=== PATIENT | male | born 1950 | race Caucasian/White ===

== ENCOUNTER 2020-06-04 12:08 | Inpatient (IN) | payer MEDICARE, SELFPAY ==
[2020-06-04] VITALS (19 sets, daily range): BP systolic 111–183; BP diastolic 76–119; PULSE 65–104; RESP 11–37; TEMP 36.1–36.6; O2SAT 93–99; BMI 22.8; BMI 24.2
--- NOTE | 2020-06-04 12:35 | DI.RAD.S_ITS ---
PROCEDURE: XR CHEST 1V INDICATIONS: fall yesterday, pain Left chest w/ decreased breath sounnds. TECHNIQUE: One view of the chest was acquired. COMPARISON: None. FINDINGS: Surgical changes and devices: None. Lungs and pleura: An incomplete inspiratory result is noted, causing a crowded appearance to the lung markings. No focal infiltrates are seen. No pneumothorax or significant pleural effusions are seen. Mediastinum: The cardiac contours are within normal limits. The aorta demonstrates calcification and tortuosity. Bones and chest wall: No suspicious bony lesions. Remote left posterior rib fractures are seen. Age-appropriate bony degenerative changes are seen. Overlying soft tissues appear unremarkable. IMPRESSION: Unremarkable portable chest for age. Dictated by: Kieran Paredes M.D. on 06/04/2020 at 12:02 Approved by: Kieran Paredes M.D. on 06/04/2020 at 12:02
--- NOTE | 2020-06-04 12:42 | DI.CT.S_ITS ---
PROCEDURE: CT CERVICAL SPINE WO CON INDICATIONS: fall, cervical pain TECHNIQUE: Noncontrast 3 mm thick sections acquired from the skull base to the T4 level. Sagittal and coronal reformats were then constructed. For radiation dose reduction, the following was used: automated exposure control, adjustment of mA and/or kV according to patient size. COMPARISON: [facility], CT, CT HEAD/BRAIN WO CON, 06/04/2020, 12:47. [facility], CT, CT CHEST ABD PEL W CON, 06/04/2020, 12:47. FINDINGS: Image quality: Excellent. Bones: No fractures or dislocations. Visualized superior ribs are intact. Levoconvex cervical thoracic scoliotic curvature is seen. Degenerative changes are seen, with moderate to severe disc space narrowing at C5-C6 and C6-C7. At least partially bridging anterior osteophytes are seen C4 through C7. Soft tissues: Prevertebral soft tissues are normal in thickness. No paravertebral hematomas. No apical pneumothoraces. IMPRESSION: No displaced fractures are seen. Prominent lower cervical spine degenerative changes are seen. Dictated by: Kieran Pardees M.D. on 06/04/2020 at 12:19 Approved by: Kieran Paredes M.D. on 06/04/2020 at 12:20
--- NOTE | 2020-06-04 12:42 | DI.CT.S_ITS ---
PROCEDURE: CT HEAD/BRAIN WO CON INDICATIONS: fall, cervical pain TECHNIQUE: Noncontrast 4.5 mm thick angled axial sections acquired from the foramen magnum to the vertex, with coronal and sagittal reformats. For radiation dose reduction, the following was used: automated exposure control, adjustment of mA and/or kV according to patient size. COMPARISON: [facility], CT, CT CERVICAL SPINE WO CON, 06/04/2020, 12:47. FINDINGS: Image quality: Excellent. CSF spaces: Basal cisterns are patent. No extra-axial fluid collections. The ventricles are symmetric in size and shape. Brain: No intracranial bleeds or masses. There is cerebral volume loss for age, with resultant ventricular and sulcal prominence. There are periventricular and deep white matter chronic small vessel ischemic changes. There is intracranial internal carotid artery atherosclerosis. Skull and face: Calvarium and visualized facial bones appear intact, without suspicious lesions. Sinuses: Visualized sinuses and mastoids are clear. IMPRESSION: Unremarkable intracranial study for age, without acute intracranial hemorrhage. Dictated by: Kieran Paredes M.D. on 06/04/2020 at 12:17 Approved by: Kieran Paredes M.D. on 06/04/2020 at 12:19
--- NOTE | 2020-06-04 12:45 | DI.CT.S_ITS ---
PROCEDURE: CT CHEST ABD PEL W CON INDICATIONS: trauma TECHNIQUE: After the administration of intravenous contrast, 5 mm thick sections acquired from the lung apices to the symphysis. 2.5 mm thick coronal and sagittal reformats were acquired. Additional 7 mm thick coronal maximum intensity projection (MIP) reformats acquired through the lungs. Optional 10-minute delayed imaging may be performed from the kidneys to the bladder. For radiation dose reduction, the following was used: automated exposure control, adjustment of mA and/or kV according to patient size. COMPARISON: [facility], CT, CT HEAD/BRAIN WO CON, 06/04/2020, 12:47. [facility], CT, CT CERVICAL SPINE WO CON, 06/04/2020, 12:47. [facility], CR, XR CHEST 1V, 06/04/2020, 12:27. FINDINGS: Image quality: Excellent. CHEST: Lungs: No pulmonary contusions or lacerations. Mild dependent atelectasis is seen. Centrilobular emphysematous changes are seen. These are more prominent at the lung apices than at the lung bases. No pneumothorax or hemothorax. Central and peripheral airways appear patent and normal in caliber. Mediastinum: No mediastinal hematomas. Heart size is normal. Coronary artery calcifications are seen. No pericardial effusion. The thoracic aorta is prominent and tortuous, with the aortic arch measuring 3.3 cm in the descending thoracic aorta measuring 3.4 cm. The pulmonary arteries demonstrate normal size and enhancement. No mediastinal or hilar adenopathy. Esophagus is normal in caliber. There is a small hiatal hernia. Chest wall: Mildly displaced fractures are seen on the left involving the 4th and 5th ribs. The left 6th and 7th ribs demonstrate chronic appearing fractures. No subcutaneous emphysema. No axillary or supraclavicular adenopathy. Thyroid gland demonstrates no significant abnormality. ABDOMEN: Solid organs: Liver is normal in size and enhancement, without lacerations. A simple appearing water density cyst is seen along the posterior aspect of the right liver dome measuring 2.4 cm. Tiny subcentimeter presumed cysts are seen elsewhere within the liver. Gallbladder wall is not thickened. Biliary system is non-dilated. Pancreas enhances normally, without transection. Spleen is normal in size and enhancement, without lacerations. No adrenal hematomas. Both kidneys enhance normally, without hydronephrosis or lacerations. Simple appearing bilateral renal cysts are seen. Senescent cava living is seen surrounding both kidneys. Peritoneum and bowel: No free fluid or air. Focal wall thickening is seen involving the distal descending colon, as on series 3, image 25 and on series 2, image 108. Mild surrounding inflammatory changes are seen. Unenhanced bowel loops otherwise demonstrate normal wall thickness and caliber. A normal appendix is incidentally noted. Colonic diverticulosis is seen, without findings of active diverticulitis. Nodes and vessels: No retroperitoneal or mesenteric adenopathy. Aorta and inferior vena cava are normal in size and enhancement. Atherosclerotic calcification is noted. Miscellaneous: No ventral hernias. PELVIS: Genitourinary: Bladder wall thickness is normal. Miscellaneous: No inguinal hernias or adenopathy. Bones: Pelvic ring and hip joints appear intact. There is a remote appearing L4 anterior wedge deformity, with 30% loss of height anteriorly. No acute appearing vertebral compression fractures. [id number] levoconvex lumbar scoliosis is seen. Degenerative changes are seen throughout, which are most prominent involving the lumbar spine. IMPRESSION: Mildly displaced left 4th and 5th rib fractures. Chronic appearing left lateral 6th and 7th rib fractures are also seen. No associated pneumothorax is seen. Chronic appearing L4 anterior wedge deformity, without acute vertebral body fractures identified. Note is made of focal wall thickening involving the distal descending colon. Suspicion for neoplasm is high. When clinically appropriate, a dedicated colonoscopy is recommended for further evaluation. Incidental note is made of: Tortuous and mildly aneurysmal thoracic aorta Coronary artery calcifications Small hiatal hernia Liver and renal cysts Normal appendix Diverticulosis, without active diverticulitis Note: Findings and recommendations discussed by telephone with Dr. Rascon at 12:42 p.m. [place] time on June 04, 2020. Dictated by: Kieran Paredes M.D. on 06/04/2020 at 12:33 Approved by: Kieran Paredes M.D. on 06/04/2020 at 12:43
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
[2020-06-04 12:49] LABS: Add Manual Diff / Slide Review NO; Basophils Absolute Auto 100 /uL (0-100); Basophils Percent Auto 1.6 % (0-2); Eosinophils Absolute Auto 0 /uL (0-450); Eosinophils Percent Auto 0.9 % (2-4); Hematocrit 45.2 % (41-53); Hemoglobin 15.7 g/dL (13.5-17.5); Lymphocytes Absolute Auto 900 /uL (1100-4500); Lymphocytes Percent Auto 18.9 % (25-40); Mean Corpuscular HGB Conc 34.7 % (30-36); Mean Corpuscular Hemoglobin 33.3 PG (26-34); Mean Corpuscular Volume 95.9 fL (80-100); Monocytes Absolute Auto 400 /uL (0-900); Monocytes Percent Auto 8.1 % (3-14); Neutrophils Absolute Auto 3300 /uL (1500-7000); Neutrophils Percent Auto 70.5 % (50-75); Platelet Count 205 X10^3/uL (150-400); Red Blood Cell Count 4.71 X10^6/uL (4.5-5.9); Red Cell Distribution Width 12.7 % (11.6-14.8); White Blood Cell Count 4.7 X10^3/uL (4.5-11.0)
[2020-06-04 12:58] LABS: Prothrombin Time 11.7 SECONDS (10.1-12.7)
[2020-06-04 13:01] LABS: Acetaminophen < 10 ug/mL (10-30); Alanine Aminotransferase 30 IU/L (<50); Albumin 4.6 g/dL (3.5-5.0); Albumin Globulin Ratio 1.2 (1.0-2.8); Alkaline Phosphatase 102 U/L (38-126); Aspartate Aminotransferase 39 IU/L (17-59); BUN Creatinine Ratio 10.6 (6-22); Bilirubin Total 0.7 mg/dL (0.2-1.3); Blood Urea Nitrogen 10 mg/dL (9-20); Calcium 9.4 mg/dL (8.4-10.2); Carbon Dioxide 23 mmol/L (22-32); Chloride 94 mmol/L (98-107); Creatine Kinase 152 U/L (55-170); Estimated Glomerular Filt Rate > 60.0 mL/min (>60); Ethanol (ETOH) < 10 mg/dL; Glucose 95 mg/dL (80-110); Lipase 83 U/L (23-300); PTT Partial Thromboplastin Tim 28 SECONDS (26.4-36.2); Potassium 4.1 mmol/L (3.4-5.1); Salicylate < 1.0 mg/dL (<20); Sodium 129 mmol/L (137-145); Total Protein 8.6 g/dL (6.3-8.2)
[2020-06-04 13:03] LABS: Lactate (Lactic Acid) 1.3 mmol/L (0.7-2.1)
[2020-06-04 13:12] LABS: Troponin I < 0.012 ng/mL (0.01-0.034)
[2020-06-04 13:16] LABS: CKMB % Relative Index 1.7 % (1.5-5.0); Creatine Kinase MB 2.58 ng/mL (<2.37); HEMOLYSIS 18 (0-50)
[2020-06-04 13:42] LABS: TSH w/ Reflex to FT4 1.74 uIU/mL (0.47-4.68)
--- NOTE | 2020-06-04 14:03 | PC.NURSE ---
Patient is resting on bed with lights on, curtain and door open to hallway.
[2020-06-04] MEDS: LIDOCAINE PATCH 1 EACH ADH..PATCH TOP (14:14)
[2020-06-04] MEDS: HYDROMORPHONE 1 MG INJ IV ×2 (14:14→17:17)
[2020-06-04] MEDS: SODIUM CHLORIDE 0.9% 1,000 ML 1000 ML IV (14:18)
--- NOTE | 2020-06-04 14:19 | PC.NURSE ---
I helped patient use urinal at bedside. Door and curtain are open to hallway and lights are on in room.
[2020-06-04 14:30] LABS: UR Morphine/Opiate cutoff 300 Negative (Negative); Ur Creatinine Normal (Normal); Ur Specific Gravity Normal (Normal); Urine Amphetamines Negative (Negative); Urine Barbiturates Negative (Negative); Urine Benzodiazepines Negative (Negative); Urine Cocaine Negative (Negative); Urine MDMA Negative (Negative); Urine Methadone Negative (Negative); Urine Methamphetamines Negative (Negative); Urine Oxycodone Negative (Negative); Urine Phencyclidine Negative (Negative); Urine Tetrahydrocannabinol Negative (Negative); Urine Tricyclic Antidepressant Negative (Negative); Urine pH Normal (Normal)
--- NOTE | 2020-06-04 14:32 | PC.NURSE ---
HOME DEP[employer] REP is speaking with pt in room.
--- NOTE | 2020-06-04 14:38 | PC.NURSE ---
patient came into the ED complains of left rib pain. He said that he walked to his car and fell down. He said that his legs became weak and he fell down. During triage he stated that he he has been having thoughts about jumping off a bridge to escape his pain in his ribs. He said that he would do it if he had a ride to a bridge but he does not have a ride. Patient was put on SI watch with Q15 min checks and a call was made to social work. ANTOINETTE Gonzalez is in room consulting right now.
--- NOTE | 2020-06-04 15:01 | CM.SWNOTE ---
TABLEAU ANALYST assessment TABLEAU ANALYST - Professor Of Environmental Engineering Assessment TABLEAU ANALYST - Professor Of Environmental Engineering Assessment Start: 06/04/20 14:47 Freq: Status: Active Protocol: Document 06/04/20 14:48 CHRISTINA (Rec: 06/04/20 15:01 CHRISTINA [id number]) TABLEAU ANALYST/Professor Of Environmental Engineering Assessment Time Spent with Patient Start date 06/04/20 Visit Start Time 14:05 End date 06/04/20 Visit End Time 14:45 Total time Care Management spent on 40 patient visit-in minutes Mental Health Screening Include Onset, Duration, Intensity Presenting Problem Patient presents to ED following a fall while in the parking lot 2 days prior. Patient states he has rib pain and back pain from this fall. During triage, patient informs RN that he has thought about committing suicide by jumping off the [place] bridge, but informs RN that he does not have a vehicle, and would be unable to complete this plan. Precipitating Event(s) Patient reports his legs gave out in November of 2018 and he has had difficulty with mobility since this time. Patient reports he cannot walk , and has difficulty navigating his home. Patient comes to the ED today following an additional injury . Current Behavioral Health Provider(s) none provided Include Facility, Provider, Ph. # Psych. Hx Mental Health and Chemical Patient did not disclose any Dependency previous mental health diagnoses. Family Hx of Behavioral Abuse none reported Psychiatric Hospitalizations (date(s)/ none reported location) Support System(s) Patient lives with his girlfriend. Patient reports that his girlfriend is unable to walk, but has been supportive of patient since onset of recent physical health concerns. Patient reports that his girlfriend's son has been very helpful with transportation and cooking since the challenges with mobility began. School/Work none reported. Legal Concerns Legal Matters - Outstanding Issues none reported Mental Status Orientation (Person/Place/Time) Oriented x3 Affect Slightly flat, stable Thought Content - Specify/Describe no hallucinations, obsessions, Obsessions, Delusions, Hallucinations or delusions observed or reported during assessment. Thought Processes (Mpvgnln-Chrfehaf-Hacq Coherent Zejccxkn-Lenodxlz-Bzgzkdiwtd- Oqyianahktquec-Sangbfs-Dufbpoymfzam- Thought Blocking) Speech (Nciasw-Xucd-Whsdzgl-Rapid-Soft- Slow. Loud-Pressured) Motor (Helcgn-Jieuxhroe-Ucws-Other) Slow Insight (Present-Partially Present- Present Impaired) Judgment (Intact-Impaired) Intact Impulse Control (Adequate-Impaired) Adequate Memory (Baagpppiq-Rhfmky-Hurfxm, Intact x3 Impaired-Intact) Concentration (Intact-Impaired) Intact Attention (Intact-Impaired) Intact Behavior (Appropriate-Inappropriate) Appropriate Additional Comment Patient calm and cooperative throughout visit. Risk Assessment Suicidal Ideation (Plan) No Homicidal Ideation (Plan) No Comment Patient reports he had [place], but reports he considered this because he wanted the pain to stop. Patient explains the pain is physical pain and discusses his back and rib pain. Patient reports he is currently not considering it, would like to explore options for physical pain reduction, and states that he would be unable to get to bridge because he does not have a vehicle and that he would be unable to walk from the vehicle to the bridge. TABLEAU ANALYST revisits this multiple times throughout assessment and patient consistently denies SI /HI. Intervention Intervention TABLEAU ANALYST consult requested for evaluation of SI. Based on assessment, patient does not present as imminent risk of SI , and expresses desire to find ways to live without a high level of physical pain. TABLEAU ANALYST and patient discuss mobility in home and TABLEAU ANALYST provides patient education on HH as a potential option to help with mobility in home and regain strength. Patient explains he is not interested at this time . TABLEAU ANALYST provides update to SEVERO Ku and Dr. Rascon who will continue to manage patient's physical health concerns in the ED. Plan RA Plan Patient will work with Dr. Rascon and SEVERO Ku to continue to evaluate and address physical health concerns that resulted in today's presentation to ED. ANTOINETTE Patterson
--- NOTE | 2020-06-04 15:32 | PC.NURSE ---
Nito and I tried ambulating pt but pt refused to walk due to pain in chest. was notified. Pts door and curtain are open to hallway and lights are on in room.
--- NOTE | 2020-06-04 16:05 | PC.NURSE ---
ANTOINETTE Gonzalez stated that he evaluated the patient and deemed him to not be a risk to himself at this time. The patient will continue to be monitored closely by the staff but is no longer on suicide watch at time.
--- NOTE | 2020-06-04 17:17 | PC.NURSE ---
Pt is resting in bed.
--- NOTE | 2020-06-04 17:19 | DI.MRI.S_ITS ---
PROCEDURE: MR THORACIC SPINE WO CON INDICATIONS: weakness in legs with frequent falls TECHNIQUE: The patient terminated this examination early, before can be completed. The following imaging sequences were obtained: Sagittal T1 weighted, sagittal T2 weighted, sagittal STIR COMPARISON: [facility], CT, CT CERVICAL SPINE WO CON, 06/04/2020, 12:47. [facility], CT, CT CHEST ABD PEL W CON, 06/04/2020, 12:47. [facility], CR, XR CHEST 1V, 06/05/2020, 5:41. FINDINGS: Image quality: Excellent. Alignment and Curvature: There is hngu-ph-rsfaqvwh dextroconvex scoliosis. Accentuated thoracic kyphosis is seen. Bone Marrow: The bone marrow demonstrates diffuse heterogeneity, yet without focally suspicious lesions. Several levels of minimal anterior wedge deformity are seen, without acute features. No acute vertebral body compression fractures. Spinal Cord: Visualized spinal cord is normal in size and signal. Paraspinous Soft Tissues: No paravertebral masses. There is a trace left-sided pleural effusion, with apparent overlying atelectasis. Miscellaneous: Mild central disc bulges are seen at T9-T10, T10-T11, T11-T12, T12-L1, and L1-2. Minimal to mild central canal narrowing can be seen at these levels. At the T9-T10 level, there is moderate bilateral neural foraminal narrowing seen. Milder neural foraminal narrowing can be seen elsewhere within the mid and lower thoracic spine. IMPRESSION: No nawaf, acute bony abnormality can be seen. In this patient with a colonic mass, no nawaf findings of metastatic disease are detected. Trace left-sided pleural effusion with overlying presumed atelectasis. Lower thoracic spine degenerative changes are seen. Limited examination, which was terminated early by the patient. Dictated by: Kieran Paredes M.D. on 06/05/2020 at 9:21 Approved by: Kieran Paredes M.D. on 06/05/2020 at 9:28
--- NOTE | 2020-06-04 17:27 | P.CONS_ITS ---
History of Present Illness Consult details Date Patient Seen: 06/04/20 Time Patient Seen: 17:24 Chief complaint: fell, hurt left side ribs, and back Reason for consult: CT of the colon abnormal Requesting provider: Jad Rascon Narrative: The gentleman is a 69-year-old who apparently fell going to his car yesterday. He hit the ground and the pain brought him to the ER today. He has been having severe back pain and difficulty walking for over year. The fall has exacerbated that but also important is the fact that he now has new left-sided chest pain especially when he ties to take a deep breath or cough. This is new. 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 He is not real specific however in providing information about that. Much as he should bed is unaware of he is losing weight or not. He denies any abdominal pain the last year he did has some gastrointestinal bleeding that was evaluated he believes in [place]. I do not have those records available to me at this time. His last normal bowel movement was yesterday before his fall. Since his intestinal bleeding over a year ago he has not seen blood in his stool. He does not know exactly what tests were done in [place] he has no family history of colon cancer Meds Home Medications and Allergies Home Medications Medication Instructions Recorded Confirmed Type ibuprofen 600 mg PO PRN #0 01/27/12 History meloxicam [Mobic] 15 mg PO BIDCC #0 02/23/12 History Allergies Allergy/AdvReac Type Severity Reaction Status Date / Time acetaminophen [From Percocet] Allergy Mild MAKES ME Verified 06/04/20 14:10 FEEL UNEASY oxycodone [From Percocet] Allergy Mild MAKES ME Verified 06/04/20 14:10 FEEL UNEASY Review of Systems Review of Systems Narrative: Not the best of historians. No trouble swallowing. Is a smoker does not have a persistent cough. No breathing issues at this time except for pain in the left chest with deep breath. No prior heart attacks or blood pressure problems he is aware of. No prior abdominal operations. No abdominal pain. No black or bloody bowel movements in the last year. Exam Vital Signs (past 8 hours): - 06/04/20 12:36 06/04/20 12:56 06/04/20 13:07 Temperature 97.9 F Pulse Rate 97 H 104 H 91 H Respiratory Rate 15 18 Blood Pressure 177/119 H Pulse Oximetry 98 96 06/04/20 13:08 06/04/20 13:26 06/04/20 13:30 Temperature Pulse Rate 87 86 85 Respiratory Rate 15 22 22 Blood Pressure 150/103 H 133/94 H 165/106 H Pulse Oximetry 97 94 98 06/04/20 14:00 06/04/20 14:01 06/04/20 14:30 Temperature Pulse Rate 86 85 86 Respiratory Rate 26 H 17 37 H Blood Pressure 149/91 H 149/91 H 166/112 H Pulse Oximetry 99 97 99 06/04/20 15:00 06/04/20 15:31 06/04/20 15:37 Temperature Pulse Rate 76 88 80 Respiratory Rate 18 18 14 Blood Pressure 183/93 H 144/100 H Pulse Oximetry 97 98 98 06/04/20 16:00 06/04/20 16:30 06/04/20 17:00 Temperature Pulse Rate 68 77 78 Respiratory Rate 11 L 18 23 Blood Pressure 117/76 146/96 H 152/88 H Pulse Oximetry 98 99 95 Oxygen Delivery Method Room Air Narrative Exam Narrative: Cooperative man in no apparent distress. A little discheveled. Eyes are nonicteric. Pupils equal round reactive to light. Conjunctivae are pink. Oral mucosa is dry. No obvious open lesions seen. No splits in the lips. He has no palpable nodes in the neck or supraclavicular areas. Lungs are clear to auscultation but decreased breath sounds posteriorly. Tender in the left chest which limits his ability to take a deep breath. No ventral hernias. Abdomen is soft nontender without mass. Liver and spleen are not enlarged. Extraocular movements are intact. Tongue is midline. Face is symmetric. Normal upper body strength. Objective Imaging CT scan - abdomen: My impression: Patient had multiple CTs. CT of the head is unremarkable. CT of the C-spine shows no evidence of fracture but there is significant DJD. Patient has thickening of what appears to be the sigmoid or descending colon. There is no obstruction apparent on CT scan. There is diverticulosis of the sigmoid colon. No pleural effusions or hemothorax noted. He does have a rib fractures on the left both old and new. No evidence of any metastatic disease in the liver or lung though he does have a cyst in the liver. No evidence of a mass in the kidneys. Labs Result Diagrams: 06/04/20 12:41 06/04/20 12:41 Labs: Laboratory Results - last 24 hr 06/04/20 06/04/20 06/04/20 12:41 12:41 12:41 WBC 4.7 RBC 4.71 Hgb 15.7 Hct 45.2 MCV 95.9 MCH 33.3 MCHC 34.7 RDW 12.7 Plt Count 205 Neut % (Auto) 70.5 Lymph % (Auto) 18.9 L [place] % (Auto) 8.1 Eos % (Auto) 0.9 L Baso % (Auto) 1.6 Neut # (Auto) 3300 Lymph # (Auto) 900 L [place] # (Auto) 400 Eos # (Auto) 0 Baso # (Auto) 100 PT 11.7 INR 1.0 APTT 28 Sodium 129 L Potassium 4.1 Chloride 94 L Carbon Dioxide 23 BUN 10 Creatinine 0.94 Estimated GFR > 60.0 BUN/Creatinine Ratio 10.6 Glucose 95 Lactate Calcium 9.4 Total Bilirubin 0.7 AST 39 ALT 30 Alkaline Phosphatase 102 Total Creatine Kinase 152 CK-MB (CK-2) 2.58 H CK-MB (CK-2) Rel Index 1.7 Troponin I < 0.012 Total Protein 8.6 H Albumin 4.6 Globulin 4.0 Albumin/Globulin Ratio 1.2 Lipase 83 TSH Salicylates U Opiates 300ng/mL cut Ur Oxycodone Screen Urine Methadone Screen Acetaminophen Ur Barbiturates Screen U Tricyclic Antidepress Ur Phencyclidine Scrn Ur Amphetamines Screen U Methamphetamines Scrn Ur MDMA Scrn (Ecstasy) U Benzodiazepines Scrn Urine Cocaine Screen U Marijuana (THC) Screen Ethyl Alcohol < 10 06/04/20 06/04/20 06/04/20 12:41 12:41 12:41 WBC RBC Hgb Hct MCV MCH MCHC RDW Plt Count Neut % (Auto) Lymph % (Auto) [place] % (Auto) Eos % (Auto) Baso % (Auto) Neut # (Auto) Lymph # (Auto) [place] # (Auto) Eos # (Auto) Baso # (Auto) PT INR APTT Sodium Potassium Chloride Carbon Dioxide BUN Creatinine Estimated GFR BUN/Creatinine Ratio Glucose Lactate 1.3 Calcium Total Bilirubin AST ALT Alkaline Phosphatase Total Creatine Kinase CK-MB (CK-2) CK-MB (CK-2) Rel Index Troponin I Total Protein Albumin Globulin Albumin/Globulin Ratio Lipase TSH 1.74 Salicylates < 1.0 U Opiates 300ng/mL cut Ur Oxycodone Screen Urine Methadone Screen Acetaminophen < 10 L Ur Barbiturates Screen U Tricyclic Antidepress Ur Phencyclidine Scrn Ur Amphetamines Screen U Methamphetamines Scrn Ur MDMA Scrn (Ecstasy) U Benzodiazepines Scrn Urine Cocaine Screen U Marijuana (THC) Screen Ethyl Alcohol 06/04/20 14:12 WBC RBC Hgb Hct MCV MCH MCHC RDW Plt Count Neut % (Auto) Lymph % (Auto) [place] % (Auto) Eos % (Auto) Baso % (Auto) Neut # (Auto) Lymph # (Auto) [place] # (Auto) Eos # (Auto) Baso # (Auto) PT INR APTT Sodium Potassium Chloride Carbon Dioxide BUN Creatinine Estimated GFR BUN/Creatinine Ratio Glucose Lactate Calcium Total Bilirubin AST ALT Alkaline Phosphatase Total Creatine Kinase CK-MB (CK-2) CK-MB (CK-2) Rel Index Troponin I Total Protein Albumin Globulin Albumin/Globulin Ratio Lipase TSH Salicylates U Opiates 300ng/mL cut Negative Ur Oxycodone Screen Negative Urine Methadone Screen Negative Acetaminophen Ur Barbiturates Screen Negative U Tricyclic Antidepress Negative Ur Phencyclidine Scrn Negative Ur Amphetamines Screen Negative U Methamphetamines Scrn Negative Ur MDMA Scrn (Ecstasy) Negative U Benzodiazepines Scrn Negative Urine Cocaine Screen Negative U Marijuana (THC) Screen Negative Ethyl Alcohol Assessment & Plan Assessment & Plan narrative: Patient with severe left chest pain secondary to rib fractures. He has a thickening of his colon on CT scan and is weak and unable to walk due to back issues. His injuries and CT findings could be dealt with as an outpatient but his inability to walk is a different matter. Because of that and his chest pain I think it is unlikely that we will be able to do a bowel prep due to those issues are do not within his pain better controlled. I think he would have great difficulty tolerating it as well as the frequent bowel movements afterward. I would like to get the records from his recent hospi talization for intestinal bleeding. If the colonoscopy was done at that time it would make a colon cancer highly unlikely. While metastatic disease to the spine is certainly described with colon cancer is not usually the 1st place that metastatic disease is found. The liver and lung would be more likely be than bone. Both those areas seem fairly clear on scanning. I have ordered a CEA which if abnormal would be helpful. If normal does not preclude a colon cancer. Most likely cause of his back pathology is degenerative disease. Also to be considered would be metastatic cancer but more likely source would be prostate then colon. PSA may be helpful. Unusual neurologic conditions like MS or Guillain-[place] seem much less likely given the chronicity and stability of his symptoms. Would recommend good pain control, incentive spirometry, lidocaine patch and supplemental oxygen as needed. Elevation of the head of the bed can be helpful if oxygenation is a problem.
[2020-06-04 18:14] LABS: Carcinoembryonic Antigen 14.9 ng/mL (0.1-3.0)
[2020-06-04 18:53] LABS: COVID19 -Nasal RAPID Negative (Negative)
[2020-06-04] MEDS: HYDROMORPHONE 2 MG INJ 1 MG IV (20:47)
[2020-06-04] MEDS: SODIUM CHLORIDE 0.9% 1,000 ML 100 ML IV (20:51)
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
--- NOTE | 2020-06-04 22:29 | PC.NURSE ---
A&OX3, poor historian, needs constant queuing. Lt. rib pain, administered dilaudid and now pt is comfortable and sleeping. cont pulse ox 94% RA. flutter valve and IS at bedside but needs frequent reminder how and when to use it. occasional cough, non-productive. pt ate some sandwich, cheese and juice for late snack. IVF. Tele. 1pa to [facility]-stand and pivot. call light in reach. bed alarm active.
[2020-06-05] VITALS (11 sets, daily range): BP systolic 103–153; BP diastolic 54–101; PULSE 74–112; RESP 14–20; TEMP 36.6–37.3; O2SAT 91–96
[2020-06-05] MEDS: HYDROMORPHONE 2 MG INJ 1 MG IV ×2 (00:48→04:35)
[2020-06-05] MEDS: SODIUM CHLORIDE 0.9% FLUSH 10 ML IV ×4 (04:35→20:42)
[2020-06-05 05:04] LABS: Add Manual Diff / Slide Review NO; Basophils Absolute Auto 0 /uL (0-100); Basophils Percent Auto 0.7 % (0-2); Eosinophils Absolute Auto 0 /uL (0-450); Eosinophils Percent Auto 0.6 % (2-4); Hematocrit 42.7 % (41-53); Hemoglobin 14.6 g/dL (13.5-17.5); Lymphocytes Absolute Auto 600 /uL (1100-4500); Lymphocytes Percent Auto 8.9 % (25-40); Mean Corpuscular HGB Conc 34.2 % (30-36); Mean Corpuscular Hemoglobin 32.8 PG (26-34); Monocytes Absolute Auto 600 /uL (0-900); Monocytes Percent Auto 9.3 % (3-14); Neutrophils Absolute Auto 5400 /uL (1500-7000); Neutrophils Percent Auto 80.5 % (50-75); Platelet Count 181 X10^3/uL (150-400); Red Blood Cell Count 4.45 X10^6/uL (4.5-5.9); Red Cell Distribution Width 13.1 % (11.6-14.8); White Blood Cell Count 6.7 X10^3/uL (4.5-11.0)
[2020-06-05 05:16] LABS: BUN Creatinine Ratio 13.9 (6-22); Blood Urea Nitrogen 14 mg/dL (9-20); Calcium 8.8 mg/dL (8.4-10.2); Carbon Dioxide 24 mmol/L (22-32); Chloride 101 mmol/L (98-107); Estimated Glomerular Filt Rate > 60.0 mL/min (>60); Glucose 119 mg/dL (80-110); HEMOLYSIS < 15 (0-50); Potassium 3.9 mmol/L (3.4-5.1); Sodium 131 mmol/L (137-145)
--- NOTE | 2020-06-05 06:00 | DI.RAD.S_ITS ---
PROCEDURE: XR CHEST 1V INDICATIONS: Rib Fractures TECHNIQUE: One view of the chest was acquired. COMPARISON: [facility], CT, CT CHEST ABD PEL W CON, 06/04/2020, 12:47. [facility], CR, XR CHEST 1V, 06/04/2020, 12:27. FINDINGS: Surgical changes and devices: None. Lungs and pleura: An incomplete inspiratory result is noted, causing a crowded appearance to the lung markings. No focal infiltrates are seen. No pneumothorax or significant pleural effusions are seen. Mediastinum: The cardiac contours are within normal limits. The aorta demonstrates calcification and tortuosity. Bones and chest wall: The patient's known left-sided rib fractures are only faintly seen on this study. Age-appropriate bony degenerative changes are seen. No suspicious bony lesions. Overlying soft tissues appear unremarkable. IMPRESSION: Faint visualization of the known left-sided rib fractures. No associated pneumothorax is seen. Dictated by: Kieran Paerdes M.D. on 06/05/2020 at 7:34 Approved by: Kieran Paredes M.D. on 06/05/2020 at 7:36
[2020-06-05] MEDS: SODIUM CHLORIDE 0.9% 1,000 ML 100 ML IV (06:50)
[2020-06-05] MEDS: HYDROMORPHONE 0.5 MG INJ IV ×2 (09:00→16:05)
[2020-06-05] MEDS: PANTOPRAZOLE 40 MG VIAL IV (09:00)
[2020-06-05] MEDS: ENOXAPARIN 40 MG/0.4 ML SYRINGE SUBCUT (09:00)
--- NOTE | 2020-06-05 09:56 | PC.NURSE ---
0930 pt went to have MRI.
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
[2020-06-05] MEDS: HYDROMORPHONE 1 MG INJ IV (13:47)
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
--- NOTE | 2020-06-05 14:49 | P.PN_ITS ---
Subjective Subjective Date Patient Seen: 06/05/20 Time Patient Seen: 14:49 Interval history: Patient is seen briefly. Is not really independently ambulatory. PT helped him and he required a great deal of assistance. Having severe chest pain from his fractures. I do not see how I can adequately bowel prep this patient right now. Perhaps in a week or 2 when his pain is better controlled and he is more ambulatory something can be done. I strongly suspect he has colon cancer based on his elevated CEA the findings on CT scan. Exam Vital Signs (past 8 hours): - 06/05/20 07:00 06/05/20 07:49 06/05/20 11:00 Temperature 98.1 F 98.6 F Pulse Rate 79 74 86 Respiratory Rate 16 14 16 Blood Pressure 115/75 137/54 L Pulse Oximetry 92 94 91 06/05/20 13:22 Temperature Pulse Rate Respiratory Rate 16 Blood Pressure Pulse Oximetry 94 Oxygen Delivery Method Nasal Cannula Oxygen Flow Rate 2 Objective Labs Result Diagrams: 06/05/20 04:50 06/05/20 04:50 Labs: Laboratory Results - last 24 hr 06/04/20 06/04/20 06/05/20 12:41 17:55 04:50 WBC 6.7 RBC 4.45 L Hgb 14.6 Hct 42.7 MCV 96.0 MCH 32.8 MCHC 34.2 RDW 13.1 Plt Count 181 Neut % (Auto) 80.5 H Lymph % (Auto) 8.9 L [place] % (Auto) 9.3 Eos % (Auto) 0.6 L Baso % (Auto) 0.7 Neut # (Auto) 5400 Lymph # (Auto) 600 L [place] # (Auto) 600 Eos # (Auto) 0 Baso # (Auto) 0 Sodium Potassium Chloride Carbon Dioxide BUN Creatinine Estimated GFR BUN/Creatinine Ratio Glucose Calcium Carcinoembryonic Ag 14.9 H COVID-19 PCR Negative 06/05/20 04:50 WBC RBC Hgb Hct MCV MCH MCHC RDW Plt Count Neut % (Auto) Lymph % (Auto) [place] % (Auto) Eos % (Auto) Baso % (Auto) Neut # (Auto) Lymph # (Auto) [place] # (Auto) Eos # (Auto) Baso # (Auto) Sodium 131 L Potassium 3.9 Chloride 101 Carbon Dioxide 24 BUN 14 Creatinine 1.01 Estimated GFR > 60.0 BUN/Creatinine Ratio 13.9 Glucose 119 H Calcium 8.8 Carcinoembryonic Ag COVID-19 PCR Quality VTE Deep Vein Thrombosis/Pulmonary Embolism Present on Admission: No
[2020-06-05] MEDS: ACETAMINOPHEN 325 MG TABLET 975 MG PO ×2 (15:11→20:40)
[2020-06-05] MEDS: OXYCODONE IR 5 MG TABLET PO ×2 (15:11→20:39)
--- NOTE | 2020-06-05 15:58 | PC.NURSE ---
Addendum entered by Analy Hyde R.N. 06/05/20 22:02: R.T. in to work with pt on breathing exercises. Medicated for pain associated with coughing, movement left chest/rib cage. Addendum entered by Analy Hyde R.N. 06/05/20 21:18: BP 120/79 with HR 101. Pt able to doze, no longer restless. Unsure of day of week, but otherwise appropriate mentation with CIWA re-assessment = 0 following ativan administration. Addendum entered by Analy Hyde R.N. 06/05/20 20:56: I.S. use with encouragement and assistance to 1000. Addendum entered by Analy Hyde R.N. 06/05/20 19:32: Pt quietly resting in bed with eyes closed. Room air 94% per continuous monitor. Seizure pads in place with wall suction set up if needed. Bed alarm on. Pt without signs of distress or discomfort. Addendum entered by Analy Hyde R.N. 06/05/20 17:23: Unable to edit 0.5 mg iv dilaudid on emar which was not given @ 1600. Dr. Steinberg was informed of pt's frequent moaning, sustained HR 124 and elevated BP. Plan per MD is to initiate CIWA protocol. Addendum entered by Analy Hyde R.N. 06/05/20 16:16: Pt confused to place and was reoriented. Continually takes off oxygen cannula. Does c/o left rib cage pain 05/13, it really hurts. Home up 0.5 mg iv dilaudid and upon further review of the emar noted pt received 1 mg dilaudid @ 1400. No med given and noted pt now resting quietly in bed with eyes closed. Original Note: Pt is restless in bed during shift report. Moves own extremities independently and sits up in bed; removes oxygen continually. Assist with urinal twice just during shift report. Urine sent to lab for UA per Dr. Steinberg. Bladder scanned post void for 19 cc's. Pt denies feeling any bladder fullness. 1:1 at this time d/t pt's restless nature and activity in bed.
[2020-06-05 16:20] LABS: Bacteria Urine None Seen; RBC Urine None Seen (0-5/HPF); WBC Urine None Seen (0-5/HPF)
[2020-06-05 16:27] LABS: Appearance Urine UA CLEAR; Bilirubin Urine UA NEGATIVE (NEGATIVE); Color Urine UA YELLOW; Glucose Urine UA TRACE g/dL (Negative); Ketones Urine UA NEGATIVE (NEGATIVE); Leukocyte Esterase Urine UA NEGATIVE (NEGATIVE); Nitrite Urine UA NEGATIVE (Negative); Occult Blood Urine UA TRACE-LYSED (Negative); Protein Urine UA NEGATIVE (Negative); Urobilinogen Urine UA 0.2 E.U./dL (0.2)
[2020-06-05 16:36] LABS: Culture Indicated Urine Cult Not Indicated; Urine Comments Microscopic Normal
[2020-06-05] MEDS: LORazepam 1 MG TABLET PO (17:44)
[2020-06-06] VITALS (13 sets, daily range): BP systolic 104–143; BP diastolic 65–84; PULSE 69–99; RESP 17–20; TEMP 36.4–36.8; O2SAT 88–99
[2020-06-06] MEDS: OXYCODONE IR 5 MG TABLET PO ×2 (02:39→08:37)
[2020-06-06 05:26] LABS: Add Manual Diff / Slide Review NO; Basophils Absolute Auto 100 /uL (0-100); Basophils Percent Auto 1.1 % (0-2); Eosinophils Absolute Auto 0 /uL (0-450); Eosinophils Percent Auto 0.5 % (2-4); Hematocrit 38.6 % (41-53); Hemoglobin 13.1 g/dL (13.5-17.5); Lymphocytes Absolute Auto 1000 /uL (1100-4500); Lymphocytes Percent Auto 17.3 % (25-40); Mean Corpuscular Hemoglobin 32.6 PG (26-34); Mean Corpuscular Volume 95.9 fL (80-100); Monocytes Absolute Auto 600 /uL (0-900); Monocytes Percent Auto 10.2 % (3-14); Neutrophils Absolute Auto 3900 /uL (1500-7000); Neutrophils Percent Auto 70.9 % (50-75); Platelet Count 140 X10^3/uL (150-400); Red Blood Cell Count 4.03 X10^6/uL (4.5-5.9); White Blood Cell Count 5.5 X10^3/uL (4.5-11.0)
[2020-06-06 05:31] LABS: Alanine Aminotransferase 16 IU/L (<50); Albumin 3.4 g/dL (3.5-5.0); Albumin Globulin Ratio 1.1 (1.0-2.8); Alkaline Phosphatase 62 U/L (38-126); Aspartate Aminotransferase 22 IU/L (17-59); BUN Creatinine Ratio 13.2 (6-22); Bilirubin Total 0.9 mg/dL (0.2-1.3); Blood Urea Nitrogen 15 mg/dL (9-20); Calcium 8.4 mg/dL (8.4-10.2); Carbon Dioxide 23 mmol/L (22-32); Chloride 101 mmol/L (98-107); Estimated Glomerular Filt Rate > 60.0 mL/min (>60); Globulin 3.2 g/dL (1.7-4.1); Glucose 98 mg/dL (80-110); HEMOLYSIS 19 (0-50); Magnesium 1.8 mg/dL (1.6-2.3); Potassium 3.9 mmol/L (3.4-5.1); Sodium 131 mmol/L (137-145); Total Protein 6.6 g/dL (6.3-8.2)
[2020-06-06] MEDS: PANTOPRAZOLE 40 MG VIAL IV (08:36)
[2020-06-06] MEDS: ENOXAPARIN 40 MG/0.4 ML SYRINGE SUBCUT (08:36)
[2020-06-06] MEDS: SODIUM CHLORIDE 0.9% FLUSH 10 ML IV ×2 (08:36→22:27)
[2020-06-06] MEDS: ACETAMINOPHEN 325 MG TABLET 975 MG PO ×3 (08:37→20:30)
[2020-06-06] MEDS: NICOTINE 21 MG PATCH TOP (08:41)
[2020-06-06] MEDS: MULTIVITAMIN 1 TABLET 1 TAB PO (08:41)
[2020-06-06] MEDS: THIAMINE 100 MG TABLET PO (08:41)
[2020-06-06] MEDS: FOLIC ACID 1 MG TABLET PO (08:41)
[2020-06-06] MEDS: LIDOCAINE PATCH 1 EACH ADH..PATCH TOP (08:48)
--- NOTE | 2020-06-06 09:36 | PC.NURSE ---
Addendum entered by Lilian Dubois R.N. 06/06/20 14:50: Pt reports pain improved since this AM, still 10/10 with coughing but less than this AM. Encouraged deep breathing and coughing exercises with Flutter valve (acapella) and incentive spirometer. Encouraged po water intake as urine output was 250mls. Original Note: Day Shift- Pt alert, oriented to his name, , [facility], .. Rates 10/10 pain to left upper outer chest with coughing. Pt has moist intermittent cough, no sputum production, Encouraged to cough secretions out. Instructed on splinting using a pillow with coughing. Encouraged HOB above 30 degrees, pt declined more than 15-20 degrees this morning during med pass. THis auto service writer reviewed pt allergies, pt does not recall having an allergy or reaction to Acetaminophen or Oxycodone as per allergy list. Pt only lists dust and environmental allergies. PRN Oxycodone and scheduled Tylenol given at 0840 for left chest pain. O2 sat 88% on RA, therefore placed pt back on 1L NC O2, O2 sats 93%. RT had pt perform incentive spirometer. Seizure pads in place, high fall risk precautions in place. Bed alarm on. Pt reoriented to call light, pt states he has a hard time seeing the lettering on the call light.
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
--- NOTE | 2020-06-06 12:17 | PT.IPTN ---
Physical Therapy Treatment Note M2 PT-IP Current Condition Start: 06/05/20 08:47 Freq: NEEDED Status: Active Protocol: Document 06/06/20 11:36 TP (Rec: 06/06/20 12:16 TP [id number]) Physical Therapy Current Condition Current Condition Evaluation Date 06/05/20 Treatment Diagnosis falls, rib fractures, ataxia, difficulty in walking Onset Date 06/04/20 M3 PT-IP Subjective Start: 06/05/20 08:47 Freq: NEEDED Status: Active Protocol: Document 06/06/20 11:36 TP (Rec: 06/06/20 12:16 TP [id number]) Subjective Physical Therapy Visit Type Type Treatment Note Visit Start Time 11:36 Visit Stop Time 11:48 Total Visit Minutes 12 Notes Student KARLOS Monroy supervised by KARLOS March. Number of SQL SERVER DBA Visits 1 Physical Therapy Visit Comments Patient Comments I can't get out of bed. I hurt. First attempt at tx was refused. Patient Goals Pt hopes to return home at discharge Therapy Pain Assessment Pain When Pain Assessed At Rest Pain Present Pain Present Pain Reported Location Left Ribs Intensity 10 Scale Used Numeric (0 - 10) Pain Behaviors Facial Grimacing,Guarding, Holding Area,Wincing Pain Management Techniques Distraction,Modification of Treatment,Re-positioning, Timing of Activity with Medications M4 PT-IP Mobility and Gait Start: 06/05/20 08:47 Freq: NEEDED Status: Active Protocol: Document 06/06/20 11:36 TP (Rec: 06/06/20 12:16 TP [id number]) PT-Transfer Assessment Comments Mobility Comments Pt reclined in bed with HOB elevated upon arrival. Pt respectfully refused to mobilize today due to pain reported at 10/10 in ribs and upper back. States he prefers to wait in bed for a week before getting up. Agreeable to ther ex for leg strengthening, with apprehension that exercising the BLE will help his condition. Pt education regarding ther ex for leg strengthening to reduce atrophy as he recovers. B ankle pumps x10, B heel slides x10, B SLR x5 with verbal cues for slow eccentric contraction. Weakness in B LE with L>R. Pt experienced SOB with exertion. Education for pursed lip breathing. Pt stated he's unable to perform because he can't breathe from his nose. SaO2 96% on 1L of oxygen. Pt positioned reclined on bed with pillow under L UE for trunk support. Call light and all other needs within reach. Gait Assessment Comments Gait Comments Not assessed. Pt respectfully refused to get out of bed due to pain. Stair Climbing Assessment Comments Stair Climbing Comments Not assessed. Pt respectfully refused to get out of bed due to pain. M5 PT-IP Objective Assessments Start: 06/05/20 08:47 Freq: NEEDED Status: Active Protocol: Document 06/05/20 11:44 AW (Rec: 06/05/20 12:32 AW [id number]) Orientation Orientation/Cognition Level of Alertness Confusional State Orientation Name,Birthday,Place,Situation Language Function Ability Word Finding Difficulties Safety Awareness Decreased Safety Awareness Memory Description Short Term Impaired,Mobile Application Tester Impaired Comments Pt unable to relate many details of his home environment or his history. He was confused during this encounter and somewhat lethargic. Gross Range of Motion Upper Extremity ROM Assessment Bilaterally Impaired Impairments impaired secondary to pain Lower Extremity ROM Assessment Within Functional Limits Strength Upper Extremity Strength Assessment Bilaterally Impaired Shoulder 4/5 Elbow 4/5 Lower Extremity Strength Assessment Bilaterally Impaired Hip 4-/5 Knee 4-/5 Ankle 3+/5 Coordination Assessment Gross Coordination Gross Coordination Impaired Assessment Finger to Nose Test Minimal Impairment Sensation Assessment Comments Sensation Comments Unable to assess due to pt's confusion Muscle Tone Muscle Tone WNL No Muscle Tone Location Bilateral Lower Extremity Severity of Tone Moderate Manifistation of Tone Ataxia Comments Muscle Tone Comments Ataxic gait. Mild incoordination B UE. M6 PT-IP Treatment Start: 06/05/20 08:47 Freq: NEEDED Status: Active Protocol: Document 06/06/20 11:36 TP (Rec: 06/06/20 12:16 TP [id number]) Physical Therapy Treatment Exercises Exercises Ankle Pumps,Heel Slides, Straight Leg Raises Education Education Provided Safety Other Treatments Other Treatment Performed Pt education on role of PT, importance of LE strengthening , pursed-lip breathing. M7 PT-IP Assessment and Plan Start: 06/05/20 08:47 Freq: NEEDED Status: Active Protocol: Document 06/06/20 11:36 TP (Rec: 06/06/20 12:16 TP [id number]) PT Summary Assessment and Plan Potential Rehabilitation Potential Fair Status of Condition at Evaluation Evolving Summary Impairments Pain,ROM,Strength,Balance, Coordination,Tone,Cognition, Bed Mobility,Transfers,Gait, Activity Tolerance Assessment Summary Pt experiencing significant pain in ribs and upper back and wheezing and SOB upon exertion, limiting his mobility. Pain reported at 10 /10 with numbness. Pt is not oriented to time. Agreeable to performing ther ex in bed without moving trunk. Pt has weakness in BLE with L>R, lacking eccentric control of hip flexors. Continue PT to increase strength, endurance, activity tolerance to mobilize at PLOF. Goals Bed Mobility Goal Standby Assistance Transfer Goal Standby Assistance,Front Wheeled Walker Gait Goal Standby Assistance,Front Wheel Walker Gait Distance 75 Other Goals - up/down 5 steps with left rail ascending SBA Days to Meet Goals 5 Frequency of Treatment Frequency Of Treatment Once a Day Treatment Plan Physical Therapy Treatment Plan Bed Mobility Training,Transfer Training,Gait Training, Therapeutic Exercise,Balance Retraining,Discharge Planning, Hot or Cold Pack,Neuromuscular Re-ed,Coordination Retraining Other Recommendations and Next Treatment transfer training; gait Focus training with FWW; stairs if able Recommendations To Nursing Amount of Assist Needed 1 Person Assist,2 Person Assist Discharge Recommendations PT Discharge Recommendations Home with 27/05 Assist,Home Health Equipment Needed for Home Before FWW Discharge Transportation Needs at Discharge Private Vehicle Note reviewed by Elizabet Toribio PTA
[2020-06-06] MEDS: OXYCODONE IR 10 MG TABLET PO ×2 (12:22→20:31)
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
--- NOTE | 2020-06-06 13:12 | DIET.PN ---
Dietary Progress Note Assessment: Steve Hunt is a 69-year-old male patient with PMHx of chronic back pain, GI bleed and previous rib fracture who presented to the ED after a ground level fall suffering left-sided rid fractures. He was started on CIWA protocol for mild alcohol withdrawal and does not appear to to have significant symptoms this morning. He has not had a bowel movement. He endorses improved appetite but states he is unable to prepare his own meals due to frequent falls. His son's girlfriend does all of the meal preparation and is the only time he eats. He reports he and his girlfriend are essentially completely dependent. General surgery was consulted for probable colon or rectal cancer but he is unable to complete a bowel prep while admitted due to his pain. HT: 175.26cm WT: 74.5kg UBW: 77kg BMI: 24.3 Labs: Na: 131 CEA: 14.9 MNA: 12 Gama: 17 Nutrition Diagnosis: Inadequate energy intake r/t decreased ability to prepare/consume sufficient energy, lack of access to food, psychological causes aeb estimated energy intake less than EER, inability to independently prepare meals, excessive consumption of alcohol. Interventions: 1. High jem, high pro nutrition therapy 2. Provided contact information for local Meals on Wheels Diet Order: HH EER: 2200 jem @ 30cal/kg (weight gain/maintenance); 100g Pro @ 1.3g/kg Monitoring/Evaluations:weight, POs, labs
[2020-06-06] MEDS: GABAPENTIN 300 MG CAPSULE PO ×2 (14:41→20:31)
[2020-06-07] VITALS (12 sets, daily range): BP systolic 102–141; BP diastolic 61–79; PULSE 65–99; RESP 14–20; TEMP 36.1–37.2; O2SAT 93–97
--- NOTE | 2020-06-07 00:06 | PC.NURSE ---
EVENING SHIFT Pt. refuses repositioning, states that he repositioning independently. OOB once with walker, 2-person assist to BSC. Pt. was somewhat erratic/unstable to BSC; education reinforced, moved back to bed much more smoothly.
[2020-06-07] MEDS: OXYCODONE IR 10 MG TABLET PO ×2 (04:33→08:34)
[2020-06-07 05:48] LABS: BUN Creatinine Ratio 14.1 (6-22); Blood Urea Nitrogen 12 mg/dL (9-20); Calcium 8.4 mg/dL (8.4-10.2); Carbon Dioxide 22 mmol/L (22-32); Chloride 100 mmol/L (98-107); Estimated Glomerular Filt Rate > 60.0 mL/min (>60); Glucose 101 mg/dL (80-110); HEMOLYSIS < 15 (0-50); Potassium 3.4 mmol/L (3.4-5.1); Sodium 127 mmol/L (137-145)
[2020-06-07] MEDS: ACETAMINOPHEN 325 MG TABLET 975 MG PO ×3 (08:33→20:36)
[2020-06-07] MEDS: MULTIVITAMIN 1 TABLET 1 TAB PO (08:34)
[2020-06-07] MEDS: PANTOPRAZOLE 40 MG TABLET PO (08:34)
[2020-06-07] MEDS: LIDOCAINE PATCH 1 EACH ADH..PATCH TOP (08:35)
[2020-06-07] MEDS: NICOTINE 21 MG PATCH TOP (08:35)
[2020-06-07] MEDS: ENOXAPARIN 40 MG/0.4 ML SYRINGE SUBCUT (08:35)
[2020-06-07] MEDS: FOLIC ACID 1 MG TABLET PO (08:35)
[2020-06-07] MEDS: GABAPENTIN 300 MG CAPSULE PO ×3 (08:35→20:36)
[2020-06-07] MEDS: SODIUM CHLORIDE 0.9% FLUSH 10 ML IV (08:35)
[2020-06-07] MEDS: THIAMINE 100 MG TABLET PO (08:39)
--- NOTE | 2020-06-07 09:43 | OT.IP.TRT ---
Current Diagnoses Multiple fractures of ribs, left side, initial encounter for closed fracture (06/06/20) Occupational Therapy Treatment Note M2 OT-IP Current Condition Start: 06/06/20 10:38 Freq: Status: Active Protocol: Document 06/06/20 10:38 CGR (Rec: 06/06/20 10:54 CGR [id number]) Occupational Therapy Current Condition Current Condition Evaluation Date 06/06/20 Treatment Diagnosis GLF with acute rib fx L side # 4-5 Diagnosis Onset Date 06/04/20 M3 OT- IP Subjective and Pain Start: 06/06/20 10:38 Freq: Status: Active Protocol: Document 06/07/20 11:24 CCC (Rec: 06/07/20 11:36 [facility] [id number]) OT- Subjective Occupational Therapy Visit Type Type Treatment Note Visit Start Time 09:43 Visit Stop Time 10:01 Total Visit Minutes 18 Occupational Therapy Visit Comments Patient Comments Pt agreeable to get up out of bed. Pt a bit confused and states was already has been out of bed earlier. OT Pain Assessment Pain When Pain Assessed At Rest Pain Present Pain Present Pain Reported M4 OT- IP ADL's Start: 06/06/20 10:38 Freq: Status: Active Protocol: Document 06/07/20 11:24 CCC (Rec: 06/07/20 11:36 [facility] [id number]) OT [id number] Comments OT Self-Feeding Comments not meal time OT ADL-Grooming General Evaluation Grooming Ability Minimal Assistance Comments OT Grooming Comments Pt able to wash his face after set-up and needing assist to brush the back of his head. OT ADL-Dressing General Eval Upper Body Dressing Ability Moderate Assistance Comments OT Dressing Comments Assist for gown orientation and assist to get on over his arms. OT ADL-Toileting Comments OT Toileting Comments pt declined OT ADL-Bathing Bathing Type Bathing Type Sponge Bath General Evaluation Bathing Ability Moderate Assistance Areas Needing Assistance Wash/Dry Back,Wash/Dry Perineal Area Comments OT Bathing Comments Pt needing assist for completeness and also assist due to pain. M6 OT- IP Functional Cognition Start: 06/06/20 10:38 Freq: Status: Active Protocol: Document 06/07/20 11:24 CCC (Rec: 06/07/20 11:36 [facility] [id number]) Cognitive Factors Limiting Selfcare Function Cognitive Ability Level of Alertness Alert,Confusional State Patient Orientation Name,Month,Place Attention Span Ability Capable of Focused Attention, Unable to Sustain Attention Ability to Follow Commands Able to Follow One Step Commands with Increased Time, Able to Follow One Step Commands with Repetition Cognitive Comments Cognitive Assessment Comments Pt not remembering that he has not been up out of bed yet as therapist and aid came in to see the pt. Pt trying to down the gown backwards. Pt has decreased safety awareness and needs concrete simple vc to follow. M7 OT- IP Mobility and Balance Start: 06/06/20 10:38 Freq: Status: Active Protocol: Document 06/07/20 11:24 [facility] (Rec: 06/07/20 11:36 [facility] [id number]) OT- Bed Mobility Assessment Supine to Sit Supine to Sit Assist Contact Guard Assistance Scooting Scooting to Edge of Bed Minimal Assistance OT-Transfer Assessment Sit to and From Stand Sit to and from Stand Moderate Assistance Transfers Transfer Ability Moderate Assistance Technique Transfer Destination Bed,Chair Devices Transfer Assistive Devices Gait Belt,Front Wheeled Walker Comments Mobility Comments VC for log rolling and Yoel to help get up from side lying. MODA to stand and another person there for safety as pt a time a bit impulsive and unsteady on his feet. Assist to guide FWW and for his balance. Spoke to nursing at this time , still safer to transfer with 2 person assist with FWW. OT- Balance Assessment Sitting Balance and Reactions Static Sitting Balance Ability Good Dynamic Sitting Balance Ability Fair Standing Balance and Reactions Static Standing Balance Ability Poor M9 OT- IP Assessment and Plan Start: 06/06/20 10:38 Freq: Status: Active Protocol: Document 06/07/20 11:24 [facility] (Rec: 06/07/20 11:36 [facility] [id number]) OT Summary Assessment and Plan Potential Rehabilitation Potential Fair Summary OT Impairments Functional Cognition,Grooming, Dressing,Toileting,Bathing, Toilet Transfers,Shower Transfers,Activity Tolerance Progress Towards Goals Slow Progress due to Pain,Slow Progress due to Activity Tolerance,Slow Progress due to Cognition Assessment Summary Pt able to participate in sponge bathing today. Pt still a bit confused but able to follow simple commands. At this time pt would benefit from skilled rehab prior to going to skilled rehab. Otherwise pt will need 27/05 assist at home. Goals Self-Feeding Goal Independent Grooming Goal Independent Dressing Goal Minimal Assistance Toileting Goal Independent Bathing Goal Minimal Assistance Toilet Transfer Goal Independent Shower Transfer Goal Independent Days to Meet Goals 9 Frequency of Treatment Frequency Of Treatment Once a Day Treatment Plan OT Treatment Plan ADL Training,Functional Cognition Training,Functional Mobility,Patient/Family Education,Discharge Planning Discharge Recommendations OT Discharge Recommendations Home with 24/ Assist,SNF Rehab Transportation Needs at Discharge Private Vehicle
--- NOTE | 2020-06-07 11:14 | CM.DPC ---
Addendum entered by ANTOINETTE Newton 06/07/20 13:41: ADD: Updated Radha at [facility] on pt status and d/c home tomorrow vs remain until for SNF. She will check in tomorrow to determine if HH needed at d/c. BF Addendum entered by ANTOINETTE Newton 06/07/20 12:24: ADD: Return call from Brittnee at number [phone] and discussed possible options of HH vs SNF and she is agreeable that SNF needed prior to return home as her son Chuck can assist but preference is for pt to make more progress so that he needs less assist when he gets back to home. [facility] provided the SNF Choice List via phone and preference is either [facility] or [facility] and Brittnee states she will leave that decision up to the pt. SW discussed Medicare coverage for SNF. SW met bedside with pt and updated on above and that Brittnee agreeable with SNF. Pt states he is leaning towards [facility] as preference but still hopeful he can d/c home. Pt going to eat his lunch and think about it some more. SW called [facility] and [facility] admissions and updated on pt status and recommendation of SNF but pt hopeful for HH. [facility] can likely accept and [facility] still reviewing. PASRR completed in anticipation of SNF. Pt not currently established with PCP and therefore HH would likely not be available right at d/c. Plan: SW to follow closely to confirm SNF vs HH at d/c (although currently no PCP) and preference of [facility] or [facility]. COVID needed tomorrow if pt confirms he will go to SNF. ANTOINETTE Newton Original Note: DCP SNF vs HH Per MD, pt seems to have better pain management and has still been requiring some oxygen but weaned down to 1L oxygen today and will attempt room air trial. Per PT, pt still slow with transfers and mobilizing and will try to really get pt up today. No CG training so far, but plan to attempt setting up with pt's girlfriend's son Chuck who is pt's primary CG. Pt changed to Inpt Status as of yesterday 06/06/20 and MD aware and recommending SNF at d/c if pt will be agreeable due to pt's slow progress and ongoing need for assist. Per OT, completed SLUMS yesterday 06/06/20 and pt scored a 10/30 that shows significant memory issues and could be partially related to pain medications but pt currently having memory issues either way. SW met bedside with pt and explained role and discussed recommendation of SNF at d/c and pt states he has no hx of SNF and home would be his preference but he is aware that he is requiring a significant amount of assist and may need SNF at d/c prior to going home. Pt confirms that his intermediate designer girlfriend Brittnee cannot walk herself and therefore cannot assist at d/c but that her son Chuck has been their primary CG. Pt is agreeable with SW calling Brittnee and Chuck to further discuss d/c planning needs and potentially setting up CG training with PT to determine if Chuck can meet pt's needs at d/c. SW attempted to call listed phone number for Brittnee but not an active phone number. Pt sleeping soundly but not easily woken up, and two numbers listed on pt's white board in room and SW attempted both ([phone] and [phone]) and left general msg on both requesting call back for d/c planning discussion. CC Lucille kindly faxed new SNF referral to [facility] based on pt's willingness to consider SNF to determine if either can accept if SNF needed at d/c. Plan: SW to follow for return call from pt's girlfriend or Chuck towards further discussion regarding SNF vs HH and for [facility] and [facility] review of pt to determine if they can accept. [facility] referral previously made and able to accept pt at d/c if safe for home. ANTOINETTE Newton
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
--- NOTE | 2020-06-07 13:30 | PT.IPTN ---
Current Diagnoses Multiple fractures of ribs, left side, initial encounter for closed fracture (06/06/20) Physical Therapy Treatment Note M2 PT-IP Current Condition Start: 06/05/20 08:47 Freq: NEEDED Status: Active Protocol: Document 06/06/20 11:36 TP (Rec: 06/06/20 12:16 TP [id number]) Physical Therapy Current Condition Current Condition Evaluation Date 06/05/20 Treatment Diagnosis falls, rib fractures, ataxia, difficulty in walking Onset Date 06/04/20 M3 PT-IP Subjective Start: 06/05/20 08:47 Freq: NEEDED Status: Active Protocol: Document 06/07/20 13:30 AB (Rec: 06/07/20 15:25 AB [id number]) Subjective Physical Therapy Visit Type Type Treatment Note Visit Start Time 13:30 Visit Stop Time 13:49 Total Visit Minutes 19 Number of SHIP RIGGER APPRENTICE Visits 0 Physical Therapy Visit Comments Patient Comments pt sitting on chair. agreed to do PT Therapy Pain Assessment Pain Present Pain Present Pain Reported Location Left Ribs Scale Used when coughing M4 PT-IP Mobility and Gait Start: 06/05/20 08:47 Freq: NEEDED Status: Active Protocol: Document 06/07/20 13:30 AB (Rec: 06/07/20 15:25 AB [id number]) PT-Transfer Assessment Sit to and From Stand Sit to and from Stand Moderate Assistance,Maximum Assistance,1 Person Assistance ,Use of Upper Extremities Equipment Transfer Assistive Device Gait Belt,Front Wheeled Walker Orthotic/Prosthetic Devices or Brace: No Comments Mobility Comments pt sitting on chair. hesistant to get up and ambulate but agreed to do PT. completed sit to stand mod to max A and max cues. required mod to max A with initial standing using FWW. tends to lean LE against the chair. NAC in room to assist. pt used urinal in standing and was able to stand mod to max A for balance. pt ambulated in room using FWW mod to max A 25 ft. cued for upright posture. positioned pt back on the chair. call light and table within reach. Gait Assessment Gait Gait Assistance Required: Moderate Assistance,Maximum Assistance,1 Person Assist Distance (Feet) 25 Able to Maintain Weight Bearing Status Yes During Gait Assistive Devices Assistive Device Gait Belt,Front Wheeled Walker Orthotic/Prosthetic Devices or Brace: No Gait Deviations General Gait Pattern Antalgic,Decreased Stride Length,Decreased Feet Clearance,Flexed Trunk Factors Limiting Gait Function Factors Limiting Gait Function Decreased Activity Tolerance, Decreased Strength,Difficulty Following Directions,Limited Range of Motion,Pain,Poor Balance,Poor Safety Awareness M5 PT-IP Objective Assessments Start: 06/05/20 08:47 Freq: NEEDED Status: Active Protocol: Document 06/05/20 11:44 AW (Rec: 06/05/20 12:32 AW [id number]) Orientation Orientation/Cognition Level of Alertness Confusional State Orientation Name,Birthday,Place,Situation Language Function Ability Word Finding Difficulties Safety Awareness Decreased Safety Awareness Memory Description Short Term Impaired,Grapple Crew Leader Impaired Comments Pt unable to relate many details of his home environment or his history. He was confused during this encounter and somewhat lethargic. Gross Range of Motion Upper Extremity ROM Assessment Bilaterally Impaired Impairments impaired secondary to pain Lower Extremity ROM Assessment Within Functional Limits Strength Upper Extremity Strength Assessment Bilaterally Impaired Shoulder 4/5 Elbow 4/5 Lower Extremity Strength Assessment Bilaterally Impaired Hip 4-/5 Knee 4-/5 Ankle 3+/5 Coordination Assessment Gross Coordination Gross Coordination Impaired Assessment Finger to Nose Test Minimal Impairment Sensation Assessment Comments Sensation Comments Unable to assess due to pt's confusion Muscle Tone Muscle Tone WNL No Muscle Tone Location Bilateral Lower Extremity Severity of Tone Moderate Manifistation of Tone Ataxia Comments Muscle Tone Comments Ataxic gait. Mild incoordination B UE. M6 PT-IP Treatment Start: 06/05/20 08:47 Freq: NEEDED Status: Active Protocol: Document 06/07/20 13:30 AB (Rec: 06/07/20 15:25 AB [id number]) Physical Therapy Treatment Education Education Provided Safety M7 PT-IP Assessment and Plan Start: 06/05/20 08:47 Freq: NEEDED Status: Active Protocol: Document 06/07/20 13:30 AB (Rec: 06/07/20 15:25 AB [id number]) PT Summary Assessment and Plan Potential Rehabilitation Potential Good Summary Impairments Pain,ROM,Strength,Balance, Coordination,Sensation,Tone, Cognition,Bed Mobility, Transfers,Gait,Activity Tolerance Progress Towards Goals Slow Progress due to Pain,Slow Progress due to Activity Tolerance Assessment Summary pt requiring mod to max A with mobility using FWW and presents with decrease activity tolerance and difficulty following directions. pt will require SNF rehab to improve strength and mobility. Goals Bed Mobility Goal Standby Assistance Transfer Goal Standby Assistance,Front Wheeled Walker Gait Goal Standby Assistance,Front Wheel Walker Gait Distance 75 Other Goals - up/down 5 steps with left rail ascending SBA Days to Meet Goals 5 Frequency of Treatment Frequency Of Treatment Once a Day Treatment Plan Physical Therapy Treatment Plan Bed Mobility Training,Transfer Training,Gait Training, Therapeutic Exercise,Balance Retraining,Discharge Planning, Hot or Cold Pack,Neuromuscular Re-ed,Coordination Retraining Other Recommendations and Next Treatment transfer training; gait Focus training with FWW; stairs if able Recommendations To Nursing Amount of Assist Needed 2 Person Assist Discharge Recommendations PT Discharge Recommendations SNF Rehab Transportation Needs at Discharge Wheelchair/Cabulance
[2020-06-07] MEDS: polyethylene glycoL 3350 17 GM POWD.PACK PO (13:41)
[2020-06-07] MEDS: SODIUM CHLORIDE 0.9% 1,000 ML 100 ML IV (14:43)
[2020-06-07] MEDS: OXYCODONE IR 5 MG TABLET PO (19:00)
[2020-06-07] MEDS: SENNOSIDES 8.6 MG TABLET 17.2 MG PO (20:36)
[2020-06-07] MEDS: DOCUSATE 100 MG CAPSULE PO (20:36)
[2020-06-08] VITALS (8 sets, daily range): BP systolic 109–148; BP diastolic 70–98; PULSE 63–87; RESP 16–18; TEMP 36.4–36.9; O2SAT 92–96
[2020-06-08] MEDS: OXYCODONE IR 5 MG TABLET PO ×4 (00:18→18:13)
[2020-06-08] MEDS: SODIUM CHLORIDE 0.9% 1,000 ML 100 ML IV (00:20)
[2020-06-08 05:44] LABS: BUN Creatinine Ratio 13.5 (6-22); Blood Urea Nitrogen 12 mg/dL (9-20); Calcium 8.5 mg/dL (8.4-10.2); Carbon Dioxide 25 mmol/L (22-32); Chloride 101 mmol/L (98-107); Estimated Glomerular Filt Rate > 60.0 mL/min (>60); Glucose 98 mg/dL (80-110); HEMOLYSIS < 15 (0-50); Potassium 3.9 mmol/L (3.4-5.1); Sodium 133 mmol/L (137-145)
[2020-06-08] MEDS: ACETAMINOPHEN 325 MG TABLET 975 MG PO ×3 (08:31→20:18)
[2020-06-08] MEDS: ENOXAPARIN 40 MG/0.4 ML SYRINGE SUBCUT (08:33)
[2020-06-08] MEDS: DOCUSATE 100 MG CAPSULE PO ×2 (08:33→20:18)
[2020-06-08] MEDS: polyethylene glycoL 3350 17 GM POWD.PACK PO (08:33)
[2020-06-08] MEDS: GABAPENTIN 300 MG CAPSULE PO ×3 (08:34→20:18)
[2020-06-08] MEDS: MULTIVITAMIN 1 TABLET 1 TAB PO (08:34)
[2020-06-08] MEDS: FOLIC ACID 1 MG TABLET PO (08:34)
[2020-06-08] MEDS: THIAMINE 100 MG TABLET PO (08:34)
[2020-06-08] MEDS: PANTOPRAZOLE 40 MG TABLET PO (08:34)
[2020-06-08] MEDS: NICOTINE 21 MG PATCH TOP (08:35)
[2020-06-08] MEDS: SODIUM CHLORIDE 0.9% FLUSH 10 ML IV ×2 (08:35→20:17)
[2020-06-08] MEDS: LIDOCAINE PATCH 1 EACH ADH..PATCH TOP (08:40)
--- NOTE | 2020-06-08 09:52 | OT.IP.TRT ---
Current Diagnoses Multiple fractures of ribs, left side, initial encounter for closed fracture (06/06/20) Occupational Therapy Treatment Note M2 OT-IP Current Condition Start: 06/06/20 10:38 Freq: Status: Active Protocol: Document 06/06/20 10:38 CGR (Rec: 06/06/20 10:54 CGR [id number]) Occupational Therapy Current Condition Current Condition Evaluation Date 06/06/20 Treatment Diagnosis GLF with acute rib fx L side # 4-5 Diagnosis Onset Date 06/04/20 M3 OT- IP Subjective and Pain Start: 06/06/20 10:38 Freq: Status: Active Protocol: Document 06/08/20 11:52 CCC (Rec: 06/08/20 12:04 [facility] [id number]) OT- Subjective Occupational Therapy Visit Type Type Treatment Note Visit Start Time 09:20 Visit Stop Time 09:52 Total Visit Minutes 32 Occupational Therapy Visit Comments Patient Comments Pt agreed to get up to shower. OT Pain Assessment Pain When Pain Assessed During Mobility Pain Present Pain Present Pain Reported Location Left Ribs Pain Behaviors Facial Grimacing,Guarding, Holding Area,Moaning M4 OT- IP ADL's Start: 06/06/20 10:38 Freq: Status: Active Protocol: Document 06/08/20 11:52 CCC (Rec: 06/08/20 12:04 [facility] [id number]) OT [id number] Comments OT Self-Feeding Comments not meal time OT ADL-Dressing General Eval Lower Body Dressing Ability Maximum Assistance Comments OT Dressing Comments Pt needing assist to shana socks as having pain from bending over to do socks. OT ADL-Toileting General Evaluation Toileting Ability Standby Assistance Comments OT Toileting Comments Pt able to sit and urinate into the toilet. OT ADL-Bathing Bathing Type Bathing Type Shower General Evaluation Bathing Ability Maximal Assistance Areas Needing Assistance Wash/Dry Back,Wash/Dry Perineal Area,Wash/Dry Lower Extremities Comments OT Bathing Comments Pt needing assist for completeness of pericare , to wash his hair and assist to wash/dry his lower extremities . M6 OT- IP Functional Cognition Start: 06/06/20 10:38 Freq: Status: Active Protocol: Document 06/08/20 11:52 CCC (Rec: 06/08/20 12:04 [facility] [id number]) Cognitive Factors Limiting Selfcare Function Cognitive Ability Level of Alertness Alert,Confusional State Patient Orientation Name,Month,Place Attention Span Ability Capable of Focused Attention, Unable to Sustain Attention Ability to Follow Commands Able to Follow One Step Commands with Increased Time, Able to Follow One Step Commands with Repetition Cognitive Comments Cognitive Assessment Comments Pt needing step by step instruction especially for safety and completeness. Pt also needing vc to help sequence through task of bathing. M7 OT- IP Mobility and Balance Start: 06/06/20 10:38 Freq: Status: Active Protocol: Document 06/08/20 11:52 [facility] (Rec: 06/08/20 12:04 [facility] [id number]) OT- Bed Mobility Assessment Rolling Type of Rolling Roll to Left Level of Assistance Standby Assistance Supine to Sit Supine to Sit Assist Contact Guard Assistance OT-Transfer Assessment Sit to and From Stand Sit to and from Stand Minimal Assistance,Moderate Assistance Transfers Transfer Ability Moderate Assistance Technique Transfer Destination Bed,Shower Stall,Toilet Devices Transfer Assistive Devices Gait Belt,Front Wheeled Walker Comments Mobility Comments Pt doing better today and needing MODA x1 with FWW. however pt still unsteady of his feet and needing assist for his balance as pt tends to have the FWW too far out in front of him. In addition pt needing more assist when stepping over the threshold of the shower. OT- Balance Assessment Sitting Balance and Reactions Static Sitting Balance Ability Good Dynamic Sitting Balance Ability Fair Standing Balance and Reactions Static Standing Balance Ability Poor M9 OT- IP Assessment and Plan Start: 06/06/20 10:38 Freq: Status: Active Protocol: Document 06/08/20 11:52 [facility] (Rec: 06/08/20 12:04 [facility] [id number]) OT Summary Assessment and Plan Potential Rehabilitation Potential Fair Analytic Complexity at Evaluation Low Summary OT Impairments Functional Cognition,Grooming, Dressing,Toileting,Bathing, Toilet Transfers,Shower Transfers,Activity Tolerance Progress Towards Goals Progressing Toward Goals Assessment Summary Pt overall improvement with activity tolerance and was able to participate in a bath today. Pt still have decreased safety awareness and needing cues for sequencing through task for bathing needs . Pt will benefit from skilled rehab prior to going home. Goals Self-Feeding Goal Independent Grooming Goal Independent Dressing Goal Minimal Assistance Toileting Goal Independent Bathing Goal Minimal Assistance Toilet Transfer Goal Independent Shower Transfer Goal Independent Days to Meet Goals 8 Frequency of Treatment Frequency Of Treatment Once a Day Treatment Plan OT Treatment Plan ADL Training,Functional Cognition Training,Functional Mobility,Patient/Family Education,Discharge Planning Discharge Recommendations OT Discharge Recommendations SNF Rehab Transportation Needs at Discharge Wheelchair/Cabulance
--- NOTE | 2020-06-08 09:59 | PT.IPTN ---
Current Diagnoses Multiple fractures of ribs, left side, initial encounter for closed fracture (06/06/20) Physical Therapy Treatment Note M2 PT-IP Current Condition Start: 06/05/20 08:47 Freq: NEEDED Status: Active Protocol: Document 06/06/20 11:36 TP (Rec: 06/06/20 12:16 TP [id number]) Physical Therapy Current Condition Current Condition Evaluation Date 06/05/20 Treatment Diagnosis falls, rib fractures, ataxia, difficulty in walking Onset Date 06/04/20 M3 PT-IP Subjective Start: 06/05/20 08:47 Freq: NEEDED Status: Active Protocol: Document 06/08/20 09:39 HH (Rec: 06/08/20 09:59 HH [email or web address]) Subjective Physical Therapy Visit Type Type Treatment Note Visit Start Time 09:12 Visit Stop Time 09:30 Total Visit Minutes 18 Notes Per OT note, pt's SLUMS test 09/02 and has been confused/ lethargic during hospitalization. Number of APPLICATION SOFTWARE DEVELOPER Visits 0 Physical Therapy Visit Comments Patient Comments Pt is in bed I cant get out of bed and i always need 2 people to help me. Therapy Pain Assessment Pain When Pain Assessed During Mobility Pain Present Pain Present Pain Reported Location Left Ribs Scale Used when coughing Pain Behaviors Facial Grimacing,Guarding, Holding Area,Wincing Pain Management Techniques Distraction,Modification of Treatment,Re-positioning, Timing of Activity with Medications M4 PT-IP Mobility and Gait Start: 06/05/20 08:47 Freq: NEEDED Status: Active Protocol: Document 06/08/20 09:39 HH (Rec: 06/08/20 09:59 HH [email or web address]) PT-Bed Mobility Assessment Supine to Sit Supine to Sit Minimal Assistance PT-Transfer Assessment Sit to and From Stand Sit to and from Stand Contact Guard Assistance,Use of Upper Extremities Equipment Transfer Assistive Device Gait Belt,Front Wheeled Walker Orthotic/Prosthetic Devices or Brace: No Transfers Transfer Destination Bed,Toilet Transfer Technique Stand Step Pivot Transfer Ability Level of Assist Moderate Assistance Comments Mobility Comments Pt was in bed watching TV upon PT arrival. Introduced myself to pt and goals of therapy but pt questioned multiple times the purpose of mobilizing. Pt also repeatedly stated that he has poor balance and needed 2PA for mobility. This PT provided reassurance multiple times to encourage him for OOB activity . Assisted pt to flatten his bed first and pt was able to complete supine to long sit slowly to R EOB with CGA. He then immediately felt painful at L rib with facial grimacing . He was able to stand up after with 2UE push off from FWW slowly. Pt presented excessive swaying but did not have LOB. He then sat back down and stood up again If i am not walking then im going to sit. Pt then started ambulating impulsively towards bathroom. He demonstrated uneven step length and step width with CGA. In the mean time, OT and ASSEMBLER BILLIARD TABLE came in to prepare pt for showering. This PT recommended pt to amb more to promote mobility multiple times but pt disregard it and got into bathroom but he was very impulsive while manuevering his FWW for turns in place since there's a threshold on the floor. Pt then sat down on toilet with poor descend by using support on FWW. Pt was then handed over to OT and ASSEMBLER BILLIARD TABLE for self care and showering. Gait Assessment Gait Gait Assistance Required: Moderate Assistance,1 Person Assist Distance (Feet) 12 Able to Maintain Weight Bearing Status Yes During Gait Assistive Devices Assistive Device Gait Belt,Front Wheeled Walker Orthotic/Prosthetic Devices or Brace: No Gait Deviations General Gait Pattern Antalgic,Decreased Stride Length,Decreased Feet Clearance,Flexed Trunk Factors Limiting Gait Function Factors Limiting Gait Function Decreased Activity Tolerance, Decreased Strength,Difficulty Following Directions,Limited Range of Motion,Pain,Poor Balance,Poor Safety Awareness M5 PT-IP Objective Assessments Start: 06/05/20 08:47 Freq: NEEDED Status: Active Protocol: Document 06/05/20 11:44 AW (Rec: 06/05/20 12:32 AW [id number]) Orientation Orientation/Cognition Level of Alertness Confusional State Orientation Name,Birthday,Place,Situation Language Function Ability Word Finding Difficulties Safety Awareness Decreased Safety Awareness Memory Description Short Term Impaired,Fpc Impaired Comments Pt unable to relate many details of his home environment or his history. He was confused during this encounter and somewhat lethargic. Gross Range of Motion Upper Extremity ROM Assessment Bilaterally Impaired Impairments impaired secondary to pain Lower Extremity ROM Assessment Within Functional Limits Strength Upper Extremity Strength Assessment Bilaterally Impaired Shoulder 4/5 Elbow 4/5 Lower Extremity Strength Assessment Bilaterally Impaired Hip 4-/5 Knee 4-/5 Ankle 3+/5 Coordination Assessment Gross Coordination Gross Coordination Impaired Assessment Finger to Nose Test Minimal Impairment Sensation Assessment Comments Sensation Comments Unable to assess due to pt's confusion Muscle Tone Muscle Tone WNL No Muscle Tone Location Bilateral Lower Extremity Severity of Tone Moderate Manifistation of Tone Ataxia Comments Muscle Tone Comments Ataxic gait. Mild incoordination B UE. M6 PT-IP Treatment Start: 06/05/20 08:47 Freq: NEEDED Status: Active Protocol: Document 06/07/20 13:30 AB (Rec: 06/07/20 15:25 AB [id number]) Physical Therapy Treatment Education Education Provided Safety M7 PT-IP Assessment and Plan Start: 06/05/20 08:47 Freq: NEEDED Status: Active Protocol: Document 06/08/20 09:39 HH (Rec: 06/08/20 09:59 HH [email or web address]) PT Summary Assessment and Plan Potential Rehabilitation Potential Good Summary Impairments Pain,ROM,Strength,Balance, Coordination,Sensation,Tone, Cognition,Bed Mobility, Transfers,Gait,Activity Tolerance Progress Towards Goals Slow Progress due to Pain,Slow Progress due to Activity Tolerance Assessment Summary Pt shows improved bed mobility with CGA and mod A x 1 for ambulation with FWW but he cont to be very impulsive and poor understanding with command, along with SLUMS test 09/02 and suicidal ideation per EMR. Pt has very high fall risk and behavior issues who will be safe to d/c skilled care facility to improve his mobility and safety awareness. Recommended nursing on 1PA for transfer and 2 PA for walking Goals Bed Mobility Goal Standby Assistance Transfer Goal Standby Assistance,Front Wheeled Walker Gait Goal Standby Assistance,Front Wheel Walker Gait Distance 75 Other Goals - up/down 5 steps with left rail ascending SBA Days to Meet Goals 5 Frequency of Treatment Frequency Of Treatment Once a Day Treatment Plan Physical Therapy Treatment Plan Bed Mobility Training,Transfer Training,Gait Training, Therapeutic Exercise,Balance Retraining,Discharge Planning, Hot or Cold Pack,Neuromuscular Re-ed,Coordination Retraining Other Recommendations and Next Treatment transfer training; gait Focus training with FWW; stairs if able Recommendations To Nursing Amount of Assist Needed 2 Person Assist Discharge Recommendations PT Discharge Recommendations SNF Rehab Transportation Needs at Discharge Wheelchair/Cabulance
--- NOTE | 2020-06-08 10:11 | CM.DPNOTE ---
DCP Cont [facility] has accepted for admission tomorrow. COVID test needs to be updated, Dr Alvarenga aware P: DC expected to [facility] tomorrow, 06.09.20 via w/c ty [facility]IST[facility]
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
[2020-06-08 16:30] LABS: COVID19 -Nasal RAPID Negative (Negative)
[2020-06-08] MEDS: SENNOSIDES 8.6 MG TABLET 17.2 MG PO (20:17)
[2020-06-09] MEDS: OXYCODONE IR 5 MG TABLET PO (02:58)
[2020-06-09 03:10] VITALS: BP 135/86; PULSE 79; RESP 18; TEMP 37; O2SAT 92
[2020-06-09 05:55] LABS: BUN Creatinine Ratio 10.1 (6-22); Blood Urea Nitrogen 8 mg/dL (9-20); Calcium 8.6 mg/dL (8.4-10.2); Carbon Dioxide 24 mmol/L (22-32); Chloride 102 mmol/L (98-107); Estimated Glomerular Filt Rate > 60.0 mL/min (>60); Glucose 101 mg/dL (80-110); HEMOLYSIS < 15 (0-50); Potassium 3.6 mmol/L (3.4-5.1); Sodium 132 mmol/L (137-145)
[2020-06-09] MEDS: OXYCODONE IR 10 MG TABLET PO (06:23)
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
[2020-06-09 08:10] VITALS: BP 138/71; PULSE 67; RESP 15; TEMP 36.7; O2SAT 92
[2020-06-09] MEDS: ACETAMINOPHEN 325 MG TABLET 975 MG PO (08:32)
[2020-06-09] MEDS: PANTOPRAZOLE 40 MG TABLET PO (08:33)
[2020-06-09] MEDS: FOLIC ACID 1 MG TABLET PO (08:33)
[2020-06-09] MEDS: DOCUSATE 100 MG CAPSULE PO (08:33)
[2020-06-09] MEDS: MULTIVITAMIN 1 TABLET 1 TAB PO (08:33)
[2020-06-09] MEDS: GABAPENTIN 300 MG CAPSULE PO (08:33)
[2020-06-09] MEDS: NICOTINE 21 MG PATCH TOP (08:33)
[2020-06-09] MEDS: ENOXAPARIN 40 MG/0.4 ML SYRINGE SUBCUT (08:33)
[2020-06-09] MEDS: LIDOCAINE PATCH 1 EACH ADH..PATCH TOP (08:34)
[2020-06-09] MEDS: polyethylene glycoL 3350 17 GM POWD.PACK PO (08:34)
[2020-06-09] MEDS: THIAMINE 100 MG TABLET PO (10:17)
--- NOTE | 2020-06-09 10:58 | PT.IPTN ---
Current Diagnoses Multiple fractures of ribs, left side, initial encounter for closed fracture (06/06/20) Physical Therapy Treatment Note M2 PT-IP Current Condition Start: 06/05/20 08:47 Freq: NEEDED Status: Active Protocol: Document 06/06/20 11:36 TP (Rec: 06/06/20 12:16 TP [id number]) Physical Therapy Current Condition Current Condition Evaluation Date 06/05/20 Treatment Diagnosis falls, rib fractures, ataxia, difficulty in walking Onset Date 06/04/20 M3 PT-IP Subjective Start: 06/05/20 08:47 Freq: NEEDED Status: Active Protocol: Document 06/08/20 09:39 HH (Rec: 06/08/20 09:59 HH [email or web address]) Subjective Physical Therapy Visit Type Type Treatment Note Visit Start Time 09:12 Visit Stop Time 09:30 Total Visit Minutes 18 Notes Per OT note, pt's SLUMS test 09/02 and has been confused/ lethargic during hospitalization. Number of GLASS HANDLER Visits 0 Physical Therapy Visit Comments Patient Comments Pt is in bed I cant get out of bed and i always need 2 people to help me. Therapy Pain Assessment Pain When Pain Assessed During Mobility Pain Present Pain Present Pain Reported Location Left Ribs Scale Used when coughing Pain Behaviors Facial Grimacing,Guarding, Holding Area,Wincing Pain Management Techniques Distraction,Modification of Treatment,Re-positioning, Timing of Activity with Medications M4 PT-IP Mobility and Gait Start: 06/05/20 08:47 Freq: NEEDED Status: Active Protocol: Document 06/08/20 09:39 HH (Rec: 06/08/20 09:59 HH [email or web address]) PT-Bed Mobility Assessment Supine to Sit Supine to Sit Minimal Assistance PT-Transfer Assessment Sit to and From Stand Sit to and from Stand Contact Guard Assistance,Use of Upper Extremities Equipment Transfer Assistive Device Gait Belt,Front Wheeled Walker Orthotic/Prosthetic Devices or Brace: No Transfers Transfer Destination Bed,Toilet Transfer Technique Stand Step Pivot Transfer Ability Level of Assist Moderate Assistance Comments Mobility Comments Pt was in bed watching TV upon PT arrival. Introduced myself to pt and goals of therapy but pt questioned multiple times the purpose of mobilizing. Pt also repeatedly stated that he has poor balance and needed 2PA for mobility. This PT provided reassurance multiple times to encourage him for OOB activity . Assisted pt to flatten his bed first and pt was able to complete supine to long sit slowly to R EOB with CGA. He then immediately felt painful at L rib with facial grimacing . He was able to stand up after with 2UE push off from FWW slowly. Pt presented excessive swaying but did not have LOB. He then sat back down and stood up again If i am not walking then im going to sit. Pt then started ambulating impulsively towards bathroom. He demonstrated uneven step length and step width with CGA. In the mean time, OT and VETERINARY VIRUS SERUM INSPECTOR came in to prepare pt for showering. This PT recommended pt to amb more to promote mobility multiple times but pt disregard it and got into bathroom but he was very impulsive while manuevering his FWW for turns in place since there's a threshold on the floor. Pt then sat down on toilet with poor descend by using support on FWW. Pt was then handed over to OT and VETERINARY VIRUS SERUM INSPECTOR for self care and showering. Gait Assessment Gait Gait Assistance Required: Moderate Assistance,1 Person Assist Distance (Feet) 12 Able to Maintain Weight Bearing Status Yes During Gait Assistive Devices Assistive Device Gait Belt,Front Wheeled Walker Orthotic/Prosthetic Devices or Brace: No Gait Deviations General Gait Pattern Antalgic,Decreased Stride Length,Decreased Feet Clearance,Flexed Trunk Factors Limiting Gait Function Factors Limiting Gait Function Decreased Activity Tolerance, Decreased Strength,Difficulty Following Directions,Limited Range of Motion,Pain,Poor Balance,Poor Safety Awareness M5 PT-IP Objective Assessments Start: 06/05/20 08:47 Freq: NEEDED Status: Active Protocol: Document 06/05/20 11:44 AW (Rec: 06/05/20 12:32 AW [id number]) Orientation Orientation/Cognition Level of Alertness Confusional State Orientation Name,Birthday,Place,Situation Language Function Ability Word Finding Difficulties Safety Awareness Decreased Safety Awareness Memory Description Short Term Impaired,Assisted Impaired Comments Pt unable to relate many details of his home environment or his history. He was confused during this encounter and somewhat lethargic. Gross Range of Motion Upper Extremity ROM Assessment Bilaterally Impaired Impairments impaired secondary to pain Lower Extremity ROM Assessment Within Functional Limits Strength Upper Extremity Strength Assessment Bilaterally Impaired Shoulder 4/5 Elbow 4/5 Lower Extremity Strength Assessment Bilaterally Impaired Hip 4-/5 Knee 4-/5 Ankle 3+/5 Coordination Assessment Gross Coordination Gross Coordination Impaired Assessment Finger to Nose Test Minimal Impairment Sensation Assessment Comments Sensation Comments Unable to assess due to pt's confusion Muscle Tone Muscle Tone WNL No Muscle Tone Location Bilateral Lower Extremity Severity of Tone Moderate Manifistation of Tone Ataxia Comments Muscle Tone Comments Ataxic gait. Mild incoordination B UE. M6 PT-IP Treatment Start: 06/05/20 08:47 Freq: NEEDED Status: Active Protocol: Document 06/07/20 13:30 AB (Rec: 06/07/20 15:25 AB [id number]) Physical Therapy Treatment Education Education Provided Safety M7 PT-IP Assessment and Plan Start: 06/05/20 08:47 Freq: NEEDED Status: Active Protocol: Document 06/08/20 09:39 HH (Rec: 06/08/20 09:59 HH [email or web address]) PT Summary Assessment and Plan Potential Rehabilitation Potential Good Summary Impairments Pain,ROM,Strength,Balance, Coordination,Sensation,Tone, Cognition,Bed Mobility, Transfers,Gait,Activity Tolerance Progress Towards Goals Slow Progress due to Pain,Slow Progress due to Activity Tolerance Assessment Summary Pt shows improved bed mobility with CGA and mod A x 1 for ambulation with FWW but he cont to be very impulsive and poor understanding with command, along with SLUMS test 09/02 and suicidal ideation per EMR. Pt has very high fall risk and behavior issues who will be safe to d/c skilled care facility to improve his mobility and safety awareness. Recommended nursing on 1PA for transfer and 2 PA for walking Goals Bed Mobility Goal Standby Assistance Transfer Goal Standby Assistance,Front Wheeled Walker Gait Goal Standby Assistance,Front Wheel Walker Gait Distance 75 Other Goals - up/down 5 steps with left rail ascending SBA Days to Meet Goals 5 Frequency of Treatment Frequency Of Treatment Once a Day Treatment Plan Physical Therapy Treatment Plan Bed Mobility Training,Transfer Training,Gait Training, Therapeutic Exercise,Balance Retraining,Discharge Planning, Hot or Cold Pack,Neuromuscular Re-ed,Coordination Retraining Other Recommendations and Next Treatment transfer training; gait Focus training with FWW; stairs if able Recommendations To Nursing Amount of Assist Needed 2 Person Assist Discharge Recommendations PT Discharge Recommendations SNF Rehab Transportation Needs at Discharge Wheelchair/Cabulance
--- NOTE | 2020-06-09 11:21 | CM.DPC ---
DCP cont: Faxed signed med list, PASRR, and discharge summary to [facility] at fax # [phone]. Fax confirmation scanned in. Lucille Cordon, [facility] Cart[employer]
[2020-06-09 11:50] VITALS: BP 106/74; PULSE 90; RESP 15; TEMP 36.8; O2SAT 93
--- NOTE | 2020-06-09 12:46 | PC.NURSE ---
Pt ready for discharge to SNF. Called report to Janeth from [facility], answered all questions, pt had all belongings at transfer, IV removed, pt out via wheelchair by [facility] personnel
--- NOTE | 2020-06-09 13:50 | CM.DPNOTE ---
Addendum entered by ANTOINETTE Nielsen 06/09/20 16:28: SEVERO Mason made aware of p/u time and number for N2N report. Original Note: DC Note DC order in place, patient remains agreeable to [facility]. Requested that Lucille, Canvas Cutter, coordinate details of patient's DC to [facility]. [facility] and [facility]/u was scheduled for 1230. P: DC to [facility] today via w/c. ANTOINETTE Nielsen
== END 2020-06-09 12:50 | DRG 183 ==
LOC: ED 16:57 → AC 17:37
PROVIDERS: Internal Medicine; Nurse Practitioner Adult Health; Specialist; Admitting Provider Internal Medicine; Emergency Provider Emergency Medicine; Referring Provider Emergency Medicine; Visit Provider Internal Medicine
DX: S22.42XA Multiple fractures of ribs, left side, initial encounter for closed fracture (principal); J96.01 Acute respiratory failure with hypoxia; E87.1 Hypo-osmolality and hyponatremia; F10.230 Alcohol dependence with withdrawal, uncomplicated; J98.11 Atelectasis; Y90.0 Blood alcohol level of less than 20 mg/100 ml; R10.9 Unspecified abdominal pain; M54.5 Low back pain; G31.84 Mild cognitive impairment of uncertain or unknown etiology; F17.210 Nicotine dependence, cigarettes, uncomplicated; R53.1 Weakness; W18.30XA Fall on same level, unspecified, initial encounter; Z11.59 Encounter for screening for other viral diseases
CPT/HCPCS: 36415; 70450; 71045; 71260; 72125; 72146; 74177; 80048; 80053; 80305; 80320; 80329; 81001; 81003; 82378; 82550; 82553; 83605; 83690; 83735; 84443; 84484; 85025; 85610; 85730; 87635; 93005; 94760; 94762; 96361; 96374; 96376; 97110; 97116; 97162; 97165; 97530; 97535; 99285; 99406; G0378; C9113; G0480; J1170; J1650; Q9967

== ENCOUNTER 2020-12-26 13:01 | Emergency (ER) | payer MEDICARE, SELFPAY ==
[2020-06-04 17:43] VITALS: BMI 24.2
[2020-12-26 13:07] VITALS: BP 171/108; PULSE 104; RESP 18; TEMP 36.3; O2SAT 98
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
--- NOTE | 2020-12-26 18:20 | PC.NURSE ---
Chronic back pain that is no better or worse. States it has been there for > 2 years. States the pain makes his legs give out. Neuro intact at this time. states occurrences of legs giving out is increasing in frequency.
--- NOTE | 2020-12-26 18:22 | DI.RAD.S_ITS ---
PROCEDURE: XR LUMBAR SPINE 2-3V INDICATIONS: chronic back pain TECHNIQUE: 3 views of the lumbar spine were acquired. COMPARISON: None. FINDINGS: Bones: 5 [id number] vertebrae are present. There is normal bony alignment. No vertebral body compression fractures. No suspicious bony lesions. Degenerative disc disease is moderately severe along the lumbosacral spine, most pronounced from L2 through L5. Facet osteoarthritis becomes progressively more prominent from L3 inferiorly, and there likely is spinal and foraminal zone stenosis over the middle and lower thirds of the lumbosacral spine. A compression fracture is not seen. Prominent bridging osteophytes are seen leftward at L 1-2 and L2-3. Soft tissues: Overlying bowel gas pattern is normal. No suspicious soft tissue calcifications. IMPRESSION: Overall there is moderately severe to severe degenerative changes along the lumbosacral spine, chronic in appearance, with likelihood of significant spinal and foraminal stenosis over the middle and lower half of the LS spine, but without associated subluxation or compression fracture. Dictated by: Marcus Del Cid M.D. on 12/26/2020 at 19:14 Approved by: Marcus Del Cid M.D. on 12/26/2020 at 19:15
[2020-12-26 18:39] LABS: Add Manual Diff / Slide Review NO; Basophils Absolute Auto 100 /uL (0-100); Basophils Percent Auto 1.1 % (0-2); Eosinophils Absolute Auto 100 /uL (0-450); Eosinophils Percent Auto 1.5 % (2-4); Hematocrit 43.4 % (41-53); Hemoglobin 15.3 g/dL (13.5-17.5); Lymphocytes Absolute Auto 1400 /uL (1100-4500); Lymphocytes Percent Auto 27.7 % (25-40); Mean Corpuscular HGB Conc 35.2 % (30-36); Mean Corpuscular Volume 96.7 fL (80-100); Monocytes Absolute Auto 500 /uL (0-900); Monocytes Percent Auto 10.2 % (3-14); Neutrophils Absolute Auto 3000 /uL (1500-7000); Neutrophils Percent Auto 59.5 % (50-75); Platelet Count 158 X10^3/uL (150-400); Red Blood Cell Count 4.49 X10^6/uL (4.5-5.9); Red Cell Distribution Width 13.4 % (11.6-14.8)
[2020-12-26 18:51] LABS: BUN Creatinine Ratio 11.7 (6-22); Blood Urea Nitrogen 9 mg/dL (9-20); Carbon Dioxide 27 mmol/L (22-32); Chloride 99 mmol/L (98-107); Estimated Glomerular Filt Rate > 60.0 mL/min (>60); Glucose 98 mg/dL (80-110); HEMOLYSIS < 15 (0-50); Potassium 4.3 mmol/L (3.4-5.1); Sodium 132 mmol/L (137-145)
[2020-12-26 19:02] VITALS: BP 157/98; PULSE 82; RESP 16; O2SAT 98
[2020-12-26 20:10] VITALS: BP 159/86; PULSE 80; RESP 18; O2SAT 98
== END 2020-12-26 20:17 | disposition home or self-care (01) ==
PROVIDERS: Emergency Provider Emergency Medicine
DX: M54.9 Dorsalgia, unspecified (principal); R53.1 Weakness
CPT/HCPCS: 36415; 72100; 80048; 81003; 85025; 99283; 99284

== ENCOUNTER 2021-09-24 18:55 | Inpatient (IN) | payer MEDICARE, MEDICAID, SELFPAY ==
[2020-06-04 17:43] VITALS: BMI 24.2
[2021-09-24] VITALS (7 sets, daily range): BP systolic 94–148; BP diastolic 54–78; PULSE 77–96; RESP 12–16; TEMP 37.4; O2SAT 99–100; BMI 23.4
--- NOTE | 2021-09-24 19:23 | PC.NURSE ---
The patient states that he wants to by running in front of a car. He would do this if his left was strong enough to allow him to run in front of a car. He thinks about it often and states that he won't try to hurt himself while here because doesn't have a car and wants to for sure.
[2021-09-24] MEDS: KETOROLAC 30 MG/ML VIAL 15 MG IV (21:14)
[2021-09-24] MEDS: SODIUM CHLORIDE 0.9% 1,000 ML 1000 ML IV ×2 (21:14→22:41)
[2021-09-24] MEDS: HYDROMORPHONE 0.5 MG INJ IV (21:14)
[2021-09-24] MEDS: LIDOCAINE 1% (PF) 2 ML INJ (21:14)
[2021-09-24 21:35] LABS: Add Manual Diff / Slide Review NO; Basophils Absolute Auto 0 /uL (0-100); Basophils Percent Auto 0.6 % (0-2); Eosinophils Absolute Auto 0 /uL (0-450); Eosinophils Percent Auto 0.2 % (2-4); Hematocrit 38.7 % (41-53); Hemoglobin 13.4 g/dL (13.5-17.5); Lymphocytes Absolute Auto 800 /uL (1100-4500); Lymphocytes Percent Auto 11.6 % (25-40); Mean Corpuscular HGB Conc 34.5 % (30-36); Mean Corpuscular Hemoglobin 32.5 PG (26-34); Mean Corpuscular Volume 94.1 fL (80-100); Monocytes Absolute Auto 800 /uL (0-900); Monocytes Percent Auto 10.6 % (3-14); Neutrophils Absolute Auto 5500 /uL (1500-7000); Platelet Count 167 X10^3/uL (150-400); Red Blood Cell Count 4.11 X10^6/uL (4.5-5.9); Red Cell Distribution Width 13.3 % (11.6-14.8); White Blood Cell Count 7.2 X10^3/uL (4.5-11.0)
[2021-09-24] MEDS: cefTRIAXone 2,000 MG in SODIUM CHLORIDE 0.9% 100 ML 200 ML IV (21:39)
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
[2021-09-24 21:42] LABS: Alanine Aminotransferase 22 IU/L (<50); Albumin Globulin Ratio 1.1 (1.0-2.8); Alkaline Phosphatase 90 U/L (38-126); Aspartate Aminotransferase 49 IU/L (17-59); BUN Creatinine Ratio 22.1 (6-22); Bilirubin Total 0.7 mg/dL (0.2-1.3); Blood Urea Nitrogen 17 mg/dL (9-20); Calcium 9.3 mg/dL (8.4-10.2); Carbon Dioxide 25 mmol/L (22-32); Chloride 98 mmol/L (98-107); Estimated Glomerular Filt Rate > 60.0 mL/min (>60); Globulin 3.8 g/dL (1.7-4.1); Glucose 96 mg/dL (80-110); HEMOLYSIS < 15 (0-50); Potassium 3.9 mmol/L (3.4-5.1); Sodium 131 mmol/L (137-145); Total Protein 7.8 g/dL (6.3-8.2)
[2021-09-24 21:43] LABS: Erythrocyte Sedimentation Rate 52 MM/HR (0-15)
[2021-09-24 21:44] LABS: Lactate (Lactic Acid) 1.5 mmol/L (0.7-2.1)
[2021-09-24 21:57] LABS: C-Reactive Protein Quant 20.6 mg/dL (<1.0)
--- NOTE | 2021-09-24 22:19 | DI.RAD.S_ITS ---
PROCEDURE: XR KNEE LT 3V INDICATIONS: effusion, infection, pain TECHNIQUE: 3 views of the knee were acquired. COMPARISON: None. FINDINGS: Bones: No fractures or dislocations. No suspicious bony lesions. Mild medial compartment joint space narrowing Soft tissues: No joint effusion. No suspicious soft tissue calcifications. Prepatellar soft tissue swelling noted. IMPRESSION: Prepatellar soft tissue swelling may reflect cellulitis or bursitis. Mild medial compartment joint space narrowing without joint effusion or lytic lesion. Approved by: Lane Wellington M.D. on 09/24/2021 at 22:21
[2021-09-24 22:22] LABS: Body Fluid Red Blood Cells 83207 /uL; Body Fluid Tot Nucleated Cells 9383 /uL
[2021-09-24 22:24] LABS: Body Fluid Appearance BLOODY; Body Fluid Clotted? NO CLOTS PRESENT; Body Fluid Color RED
[2021-09-24] MEDS: VANCOMYCIN 2,000 MG/400 ML PIGGYBACK 200 MG IV (22:37)
[2021-09-24 22:48] LABS: COVID19 - ADMIT (NP swab/PCR) Negative (Negative)
[2021-09-24 23:10] LABS: Crystals Body Fluid - IN-HOUSE NONE Present
[2021-09-24 23:36] LABS: Mononuclear WBC Body Fluid 4 %; Polynuclear WBC Body Fluid 96 %
[2021-09-24] MEDS: SODIUM CHLORIDE 0.9% 1,000 ML 100 ML IV (23:59)
[2021-09-25] VITALS (42 sets, daily range): BP systolic 72–146; BP diastolic 44–99; PULSE 69–97; RESP 11–29; TEMP 35.7–37.4; O2SAT 95–100; BMI 23.4; BMI 23.7
--- NOTE | 2021-09-25 00:33 | PC.NURSE ---
Received report from SEVERO Mireles. Pt resting in bed eyes closed. Appears comfortable post pain medication I&D performed on L knee by Dr Edmonds. Receiving Vanco and IVF per JAN. Remains on cardiac and SPO2 monitoring.
[2021-09-25] MEDS: KETOROLAC 30 MG/ML VIAL 15 MG IV ×2 (00:57→16:34)
--- NOTE | 2021-09-25 00:57 | PC.NURSE ---
Pt awake and asking for food. Sandwiches and juice provided. states knee pain. given Ketorolac per MAR. Reports he has the urge to urinate but was unsuccessful x2. bladder scanned with about 175ml in bladder. will continue to monitor.
--- NOTE | 2021-09-25 01:08 | P.HP_ITS ---
History of Present Illness History of Present Illness Date Patient Seen: 09/24/21 Time Patient Seen: 22:30 Chief complaint: Hip Pain Narrative: Steve Hunt is a 70-year-old gentleman with no stated medical history presented after several visits to the [facility] Emergency Department and finally ended up here at [facility] emergency department for left-sided knee pain. He is unable to give me a history as he is quite lethargic and appears to be unw illing to speak. My history is gleaned from the ED provider sign out, the RAEANN reports and 3 ED visit summaries from [facility]. ?Reviewing prior records and RAEANN reports, he has had multiple visits recently note from the at [facility] indicate that it is his 3rd visit within 24 hours.? With each of the notes they indicate that his knee looks normal he is able to walk on it without difficulty describe normal range of motion and he has been discharged home.? On the September 22 they were able to relocate him to a [facility] for the evening in [place].? He presented to the [facility] ED stating he is having significant chills, myalgias, increasingly weak and his knee is so painful that he is unable to walk on it at all.? Per the ED provider, he denies cough, chest pain, palpitations, he does note a low-grade headache mild nausea no vomiting no abdominal pain no diarrhea.? He describes his knee is hurting however when I asked him if it looked the same as it did yesterday he did not seem to recognize the rather dramatic erythema spreading cellulitis and impressive effusion.? He states that he does drink alcohol but typically less than 1 beer a day and does not describe difficulties if he is not drinking.? He denies using other recreational drugs. When he was seen in this emergency department examination revealed a very swollen and erythematous left knee compared to the right. Emergency department provider aspirated 38 ccs of purulent serosanguinous drainage which was sent out for culture and crystals. Admission temperature was 99.3?, blood pressure 1 32/73, heart rate 77, respiratory rate 11, oxygen saturation of 100% on room air, he weighs 72 kg with a BMI of 24.2. He does not have a white count, his platelet count is 167 he does have a elevated ESR 52 and a C-reactive protein of 20.6. His sodium is 131 the rest of his chemistries are within normal limits. COVID-19 PCR is negative. Patient History Medical History Burn of right knee Chronic back pain History of GI bleed Impaired gait Surgical History History of skin graft Family & Social History Family History Father Stroke Mother Varicose veins of both lower extremities Psychiatric disorder Brother Myocardial infarction Social History: household members significant other,other Safety & Behavioral: Feels Safe in Current Yes Environment Been Physically Hurt or No Threatened By a Person Tobacco & Substance use: Smoking Status Current every day smoker alcohol intake current alcohol intake frequency 0-2 drinks per day Substance Use Type does not use Meds Home Medications and Allergies Home Medications Medication Instructions Recorded Confirmed Type clotrimazole 1 % topical cream 1 applic TOPICAL BID 28 Days #30 g 03/15/21 03/15/21 Rx Allergies Allergy/AdvReac Type Severity Reaction Status Date / Time No Known Drug Allergies Allergy Verified 03/15/21 15:58 Review of Systems Review of Systems ROS: Yes unobtainable due to mental status (Uncooperative with interview.) Exam Vital Signs (past 8 hours): - 09/24/21 19:06 09/24/21 20:41 09/24/21 22:50 Pulse Rate 96 H 91 H 79 Respiratory Rate 16 14 12 Blood Pressure 120/74 148/78 H Pulse Oximetry 100 100 99 09/24/21 22:51 09/24/21 23:00 09/24/21 23:30 Pulse Rate 79 78 77 Respiratory Rate 12 16 Blood Pressure 110/63 94/54 L 120/72 Pulse Oximetry 99 99 99 09/25/21 00:00 09/25/21 00:30 Pulse Rate 83 77 Respiratory Rate 14 11 L Blood Pressure 132/73 Pulse Oximetry 100 100 Oxygen Delivery Method Room Air Narrative Exam Narrative: Gen: Alert, oriented, disheveled 70 y.o. male, not forthcoming HEENT: normocephalic, atraumatic, conjunctiva clear, sclera non-icteric, oral mucosa pink and moist Neck: supple, full ROM, no JVD, trachea is midline Resp: Lungs CTA, non-labored breathing CV: RRR, no murmur or rubs Abd: soft, non-tender, normoactive BTs Skin: no lesions or rashes, dry and intact Neuro: Alert and oriented X 4 w/no focal deficits. Speech clear and coherent. Extremities: Left knee w/significant swelling and induration surrounding the patella and overall knee joint. Right knee is also erythematous, but w/o swelling, appears to be more of a pressure sore. Moves all 4 extremities, is ambulatory, negative Vilma?s sign Psyche: cantankerous Objective Labs Result Diagrams: 09/24/21 21:15 09/24/21 21:15 Labs: Laboratory Results - last 24 hr 09/24/21 09/24/21 09/24/21 21:15 21:15 21:15 WBC 7.2 RBC 4.11 L Hgb 13.4 L Hct 38.7 L MCV 94.1 MCH 32.5 MCHC 34.5 RDW 13.3 Plt Count 167 Neut % (Auto) 77.0 H Lymph % (Auto) 11.6 L Taylor % (Auto) 10.6 Eos % (Auto) 0.2 L Baso % (Auto) 0.6 Neut # (Auto) 5500 Lymph # (Auto) 800 L Taylor # (Auto) 800 Eos # (Auto) 0 Baso # (Auto) 0 ESR 52 H Sodium 131 L Potassium 3.9 Chloride 98 Carbon Dioxide 25 BUN 17 Creatinine 0.77 Estimated GFR > 60.0 BUN/Creatinine Ratio 22.1 H Glucose 96 Lactate 1.5 Calcium 9.3 Total Bilirubin 0.7 AST 49 ALT 22 Alkaline Phosphatase 90 C-Reactive Protein 20.6 H Total Protein 7.8 Albumin 4.0 Globulin 3.8 Albumin/Globulin Ratio 1.1 Fluid Color Fluid Appearance Fluid RBC Fld Tot Nucleated Cell Fluid Polynuclear WBCs Fluid Mononuclear WBCs Fluid Eosinophils Fluid Other Cells Fluid Crystals Body Fluid Clot SARS-CoV-2 (PCR) 09/24/21 09/24/21 09/24/21 21:35 21:35 21:43 WBC RBC Hgb Hct MCV MCH MCHC RDW Plt Count Neut % (Auto) Lymph % (Auto) Taylor % (Auto) Eos % (Auto) Baso % (Auto) Neut # (Auto) Lymph # (Auto) Taylor # (Auto) Eos # (Auto) Baso # (Auto) ESR Sodium Potassium Chloride Carbon Dioxide BUN Creatinine Estimated GFR BUN/Creatinine Ratio Glucose Lactate Calcium Total Bilirubin AST ALT Alkaline Phosphatase C-Reactive Protein Total Protein Albumin Globulin Albumin/Globulin Ratio Fluid Color Red Fluid Appearance Bloody [place] [address] Fld Tot Nucleated Cell 9383 Fluid Polynuclear WBCs 96 Fluid Mononuclear WBCs 4 Fluid Eosinophils Not Reportable Fluid Other Cells Not Reportable Fluid Crystals None present Body Fluid Clot No clots present SARS-CoV-2 (PCR) Negative Assessment & Plan Assessment & Plan narrative: Steve Hunt is admitted for further evaluation and managment of a prepatellar joint effusion and overlying cellulitis 1. prepatellar joint effusion and overlying cellulitis, acute, present on admission * He was started on IV ceftriaxone 2 g and IV vancomycin in the ED * Continue IV ceftriaxone 1 g IV and vancomycin per pharmacy * Consult with Orthopedic surgery, appreciated * Pain controlled with IV Toradol and very low-dose Dilaudid * 0.25 mg of Dilaudid made the patient very unresponsive to interview * Blood and joint aspirate cultures are pending 2. Chronic homelessness, present on admission * It is likely that the patient may need to be housed in some sort of immediate care facilities while he receives IV antibiotics for his left knee, this will be a challenge * Social work consult requested VTE Prophylaxis: Wells risk score 0 Enoxaparin 40 mg subQ once daily Patient is admitted to the inpatient service due to the severity of disease, risks of further disease progression and this stay is expected to exceed 2 midnights. FEN: IV fluids: NS at 100 mL/hour diet: General, labs: CBC, C/BMP, liver enzymes, Mag, PT/INR Consultants Dr. Figueroa, orthopedic surgerycare and involvement in the patient?s care is appreciated. Dispo: Unknown at this time Code status: Presumed to be a full code. [X] I have utilized all available immediate resources to obtain, update, or review of the patient's current medications COVID-19 COVID-19 status: Negative Result date/Date tested (Pos, Neg/Pending): 09/24/21 Scores Wells' Criteria for PE Clinical signs and symptoms of DVT: No PE is #1 Dx or equally likely: No Heart rate > 100: No Immobilization at least 3 days or surg in previous 4 weeks: No History of PE or DVT: No Hemoptysis: No Malignancy w/Treatment within 6 months or palliative: No Wells' PE Score total: 0 Quality VTE Deep Vein Thrombosis/Pulmonary Embolism Present on Admission: No MIPS - Admit The patient?s Advance Care plan is not present because I confirmed today that the patient does not wish or was not able to name a surrogate decision maker or provide an Advance Care Plan.: Yes MIPS - DC The patient has current or prior documentation of left ventricular ejection fraction (LVEF) less than 40%, or moderate or severely depressed left ventricular systolic function.: No
[2021-09-25 05:08] LABS: Add Manual Diff / Slide Review NO; Basophils Absolute Auto 0 /uL (0-100); Basophils Percent Auto 0.7 % (0-2); Eosinophils Absolute Auto 0 /uL (0-450); Eosinophils Percent Auto 0.7 % (2-4); Hematocrit 31.7 % (41-53); Hemoglobin 10.9 g/dL (13.5-17.5); Lymphocytes Absolute Auto 800 /uL (1100-4500); Lymphocytes Percent Auto 14.2 % (25-40); Mean Corpuscular HGB Conc 34.4 % (30-36); Mean Corpuscular Hemoglobin 32.8 PG (26-34); Mean Corpuscular Volume 95.3 fL (80-100); Monocytes Absolute Auto 700 /uL (0-900); Monocytes Percent Auto 11.6 % (3-14); Neutrophils Absolute Auto 4200 /uL (1500-7000); Neutrophils Percent Auto 72.8 % (50-75); Platelet Count 135 X10^3/uL (150-400); Red Blood Cell Count 3.32 X10^6/uL (4.5-5.9); Red Cell Distribution Width 13.2 % (11.6-14.8); White Blood Cell Count 5.7 X10^3/uL (4.5-11.0)
[2021-09-25 05:14] LABS: Blood Urea Nitrogen 16 mg/dL (9-20); Calcium 8.1 mg/dL (8.4-10.2); Carbon Dioxide 22 mmol/L (22-32); Chloride 104 mmol/L (98-107); Estimated Glomerular Filt Rate > 60.0 mL/min (>60); Glucose 115 mg/dL (80-110); HEMOLYSIS < 15 (0-50); Magnesium 1.8 mg/dL (1.6-2.3); Potassium 3.6 mmol/L (3.4-5.1); Sodium 132 mmol/L (137-145)
[2021-09-25] MEDS: ACETAMINOPHEN 325 MG TABLET 650 MG PO ×3 (05:20→21:01)
[2021-09-25] MEDS: PANTOPRAZOLE DR 20 MG TABLET PO (05:21)
--- NOTE | 2021-09-25 05:38 | PC.NURSE ---
Pt with multiple attempts to urinate throughout shift and unable. Bladder scanned with 800+ ml. 16F Sarmiento cath placed draining yellow urine. 400ml initial output. pt states he is feeling much better at this time. given warm blankets. resting comfortably.
[2021-09-25] MEDS: VANCOMYCIN PER PHARMACY 1 REQUEST MISC (07:36)
--- NOTE | 2021-09-25 08:23 | PM.CN ---
History of Present Illness Consult details Date Patient Seen: 09/25/21 Time Patient Seen: 08:23 Chief complaint: Hip Pain Reason for consult: Pre patella bursitis Requesting provider: Luiza Edmonds Narrative: Patient is a 70-year-old homeless male that complains of left knee pain. He is not sure how long this has been going on but states he has been trying to get it seen from most of the week. Per report from the ED physician the patient has approximately 5 ED visits including 2 or 3 at [facility] and additional visits at [facility] before presenting here today. He states each time he was told his knee was fine and [facility]. Over the last 24 hours he notes increasing pain difficulty weight-bearing swelling and redness to his anterior knee. He does not recall any specific injury. He endorses some malaise. No specific fever. Endorses difficulty weight-bearing. Denies any specific history of heart or lung problems. Does have a history of a GI bleed in the medical record Meds Home Medications and Allergies Home Medications Medication Instructions Recorded Confirmed Type clotrimazole 1 % topical cream 1 applic TOPICAL BID 28 Days #30 g 03/15/21 03/15/21 Rx Allergies Allergy/AdvReac Type Severity Reaction Status Date / Time No Known Drug Allergies Allergy Verified 03/15/21 15:58 Review of Systems Review of Systems Narrative: Endorses malaise. Endorses painful weight-bearing difficulty with range of motion left lower extremity. History of GI bleed. Otherwise negative except for that mentioned below Constitutional Constitutional: Reports body ache(s) and Reports chills Musculoskeletal Musculoskeletal: Reports abnormal gait, Reports myalgias, Reports joint swelling and Reports limited range of motion Neurologic Neurologic: Reports abnormal gait Exam Vital Signs (past 8 hours): - 09/25/21 00:30 09/25/21 01:00 09/25/21 01:30 Pulse Rate 77 97 H 79 Respiratory Rate 11 L 20 12 Blood Pressure Pulse Oximetry 100 99 100 09/25/21 02:00 09/25/21 02:02 09/25/21 02:09 Pulse Rate 77 86 84 Respiratory Rate 12 12 12 Blood Pressure 87/53 L 88/53 L 112/59 L Pulse Oximetry 99 100 100 09/25/21 02:30 09/25/21 03:00 09/25/21 03:30 Pulse Rate 80 76 75 Respiratory Rate 16 14 16 Blood Pressure Pulse Oximetry 100 100 100 09/25/21 04:00 09/25/21 04:30 09/25/21 05:00 Pulse Rate 79 82 77 Respiratory Rate 14 18 13 Blood Pressure 96/55 L Pulse Oximetry 100 100 100 09/25/21 05:30 09/25/21 05:35 09/25/21 06:00 Pulse Rate 86 83 72 Respiratory Rate 18 22 15 Blood Pressure 123/76 94/53 L Pulse Oximetry 100 100 100 Oxygen Delivery Method Room Air Narrative Exam Narrative: Alert male no acute distress. Provides some limited history. Denies any other current issues than the left knee. HEENT exam slightly disheveled appearance otherwise no evidence of acute trauma. Lungs clear to auscultation Heart regular rate and rhythm Moves bilateral upper extremities without limitation Moves right lower extremity without limitation no erythema no swelling Left lower extremity demonstrates focal swelling and erythema anteriorly over the knee. No swelling in the popliteal fossa. They were too small scratches over the anterior knee. And a Band-Aid from the previous prepatellar aspiration. Fluctuance at the prepatellar bursa. Calf and thigh compartments are soft. Demonstrates dorsiflexion plantar flexion. Limited knee range of motion but is able to demonstrate extension to 0 and flexion about 70. Does complain of anterior knee pain with this. Negative logroll Objective Imaging Knee x-ray left: My impression: Pre patella soft tissue swelling. No fracture Radiologist's impression: IMPRESSION: Prepatellar soft tissue swelling may reflect cellulitis or bursitis. Mild medial compartment joint space narrowing without joint effusion or lytic lesion. Approved by: Lane Wellington M.D. on 09/24/2021 at 22:21 Labs Result Diagrams: 09/25/21 04:35 09/25/21 04:35 Labs: Laboratory Results - last 24 hr 09/24/21 09/24/21 09/24/21 21:15 21:15 21:15 WBC 7.2 RBC 4.11 L Hgb 13.4 L Hct 38.7 L MCV 94.1 MCH 32.5 MCHC 34.5 RDW 13.3 Plt Count 167 Neut % (Auto) 77.0 H Lymph % (Auto) 11.6 L [place] % (Auto) 10.6 Eos % (Auto) 0.2 L Baso % (Auto) 0.6 Neut # (Auto) 5500 Lymph # (Auto) 800 L [place] # (Auto) 800 Eos # (Auto) 0 Baso # (Auto) 0 ESR 52 H Sodium 131 L Potassium 3.9 Chloride 98 Carbon Dioxide 25 BUN 17 Creatinine 0.77 Estimated GFR > 60.0 BUN/Creatinine Ratio 22.1 H Glucose 96 Lactate 1.5 Calcium 9.3 Magnesium Total Bilirubin 0.7 AST 49 ALT 22 Alkaline Phosphatase 90 C-Reactive Protein 20.6 H Total Protein 7.8 Albumin 4.0 Globulin 3.8 Albumin/Globulin Ratio 1.1 Fluid Color Fluid Appearance Fluid RBC Fld Tot Nucleated Cell Fluid Polynuclear WBCs Fluid Mononuclear WBCs Fluid Eosinophils Fluid Other Cells Fluid Crystals Body Fluid Clot SARS-CoV-2 (PCR) 09/24/21 09/24/21 09/24/21 21:35 21:35 21:43 WBC RBC Hgb Hct MCV MCH MCHC RDW Plt Count Neut % (Auto) Lymph % (Auto) [place] % (Auto) Eos % (Auto) Baso % (Auto) Neut # (Auto) Lymph # (Auto) [place] # (Auto) Eos # (Auto) Baso # (Auto) ESR Sodium Potassium Chloride Carbon Dioxide BUN Creatinine Estimated GFR BUN/Creatinine Ratio Glucose Lactate Calcium Magnesium Total Bilirubin AST ALT Alkaline Phosphatase C-Reactive Protein Total Protein Albumin Globulin Albumin/Globulin Ratio Fluid Color Red Fluid Appearance Bloody Fluid RBC 29233 Fld Tot Nucleated Cell 9383 Fluid Polynuclear WBCs 96 Fluid Mononuclear WBCs 4 Fluid Eosinophils Not Reportable Fluid Other Cells Not Reportable Fluid Crystals None present Body Fluid Clot No clots present SARS-CoV-2 (PCR) Negative 09/25/21 09/25/21 04:35 04:35 WBC 5.7 RBC 3.32 L Hgb 10.9 L Hct 31.7 L MCV 95.3 MCH 32.8 MCHC 34.4 RDW 13.2 Plt Count 135 L Neut % (Auto) 72.8 Lymph % (Auto) 14.2 L [place] % (Auto) 11.6 Eos % (Auto) 0.7 L Baso % (Auto) 0.7 Neut # (Auto) 4200 Lymph # (Auto) 800 L [place] # (Auto) 700 Eos # (Auto) 0 Baso # (Auto) 0 ESR Sodium 132 L Potassium 3.6 Chloride 104 Carbon Dioxide 22 BUN 16 Creatinine 0.89 Estimated GFR > 60.0 BUN/Creatinine Ratio 18.0 Glucose 115 H Lactate Calcium 8.1 L Magnesium 1.8 Total Bilirubin AST ALT Alkaline Phosphatase C-Reactive Protein Total Protein Albumin Globulin Albumin/Globulin Ratio Fluid Color Fluid Appearance Fluid RBC Fld Tot Nucleated Cell Fluid Polynuclear WBCs Fluid Mononuclear WBCs Fluid Eosinophils Fluid Other Cells Fluid Crystals Body Fluid Clot SARS-CoV-2 (PCR) [facility] Medical History Burn of right knee Chronic back pain History of GI bleed Impaired gait Surgical History History of skin graft Family History Father Stroke Mother Varicose veins of both lower extremities Psychiatric disorder Brother Myocardial infarction Social History household members: significant other and other Tobacco & Substance Use Smoking Status: Current every day smoker alcohol intake: current Assessment & Plan Assessment and plan (1) Patellar bursitis of left knee: Status: Acute (2) Bursitis due to bacterial infection: Status: Acute (3) Homelessness: Status: Acute Plan Left prepatellar septic bursitis. Aspiration in ED demonstrated Gram-positive cocci. Patient on empiric antibiotics. Continued swelling fluctuance and pain and multiple ER presentations. Indicated for incision and drainage. Elevated ESR and CRP Assessment & Plan narrative: The risks and benefits of the procedure have been discussed with the patient even opportunity to ask questions. The risks of surgery include but are not limited to infection, malunion, nonunion, persistence of pain, damage to nerves and blood vessels, posttraumatic arthritis, DVT, PE, cardiopulmonary complications and . The patient expressed a thorough understanding of the risks and benefits of surgery and has elected to proceed. Consent was signed. Plan for incision and drainage in OR today. Discussed wound would be loosely closed with some packing. Will need packing changes and a plan for discharge with antibiotics, oral once sensitivities returned and demonstrating appropriate improvement COVID-19 COVID-19 status: Negative Time Spent With Patient Time with patient: less than 30 minutes Critical Care time: I spent a total of [] minutes of critical care time on this patient's care today; this time is exclusive of procedural time.
--- NOTE | 2021-09-25 10:36 | SUR.OPER ---
Supine on padded OR bed, head on pillow, arms secured on padded arm boards at <90 degrees abduction, legs uncrossed, safety belt at thigh, tape over blanket over lower legs.
[2021-09-25] MEDS: VANCOMYCIN 1,250 MG/250 ML PIGGYBACK 200 MG IV ×2 (11:49→22:11)
[2021-09-25] MEDS: BUPIVACAINE 0.5% (PF) VIAL 30 ML INJ (12:35)
--- NOTE | 2021-09-25 13:17 | P.OP_ITS ---
Operative Date/Time/Diagnoses Date of procedure: 09/25/21 Time of procedure: 13:17 Pre-op diagnosis: Septic left prepatellar bursitis Homelessness Post-op diagnosis: same Procedure & Clinicians Procedure: Incision/ drainage debridement septic left prepatellar bursitis CPT code 19442 Same procedure as scheduled: Yes Indications: Patient is a 70-year-old homeless male that presents with swelling erythema pain and difficulty mobilizing regarding his left knee. For report he has had 5 separate ER visits in quick succession at 3 different ERs over the last week for left knee pain. Today he presented with a erythematous swollen exquisitely painful and fluctuant prepatellar bursitis. ESR and CRP were elevated. The patient was complaining of gait changes, pain inability to weightbear, malaise. Aspiration of the prepatellar bursa demonstrated purulence fluid with 3+ Gram- positive cocci. Regarding the impressive septic prepatellar bursitis and multiple ER presentations along with generalized symptoms he was indicated for irrigation and debridement of the septic bursitis. The risks and benefits of the procedure have been discussed with the patient even opportunity to ask questions. The risks of surgery include but are not limited to infection, persistent drainage, need for additional procedures, persistence of pain, damage to nerves and blood vessels, posttraumatic arthritis, DVT, PE, cardiopulmonary complications and . The patient expressed a thorough understanding of the risks and benefits of surgery and has elected to proceed. Consent was signed. Surgeon: Macarena Tyson Click Yes if Unassisted: Yes Anesthesia Type: General and Local Operative Notes Findings: Septic left knee prepatellar bursitis. Fluctuance in the prepatellar bursa this was incised with cloudy fluid expressed. Closure Type: primary Specimen(s): other (Cultures) Applied: drain(s) (Hemovac drain, medium x1) Estimated Blood Loss (mL): 15 Blood products transfused: none Tourniquet time (min): 11 Procedure in detail: Patient was seen in the preoperative area the site of surgery was marked informed consent confirmed. The patient was brought back to the operating room by the anesthesia team positioned supine on operative table. All bony prominences well padded. Well-padded thigh tourniquet was placed. General anesthetic was administered. The left lower extremities prepped and draped in the standard sterile fashion. A formal time-out procedure was performed confirming the patient's side and site of surgery. The patient was on scheduled antibiotics. All were in agreement. Attention was turned to the left lower extremity the anterior knee was erythema the psis, swollen and fluctuant. There were no grossly open wounds but there were 2 small abrasions. The leg was held in the air for gravity exsanguination and the tourniquet was raised to 250 mmHg and stayed up for 11 minutes. A midline incision over the prepatellar bursa was made approximately 4-5 cm long this was taken down through the skin subcutaneous tissue. Immediately upon entering the bursa cloudy fluid was encountered and evacuated. Intraoperative cultures were obtained. Bursa cavity was debrided using a rongeur and curette. This was then thoroughly irrigated with 3 L of pulse lavage. Once this was completed a medium Hemovac drain was placed exiting laterally. The tourniquet was released. Hemostasis was achieved. The wound was closed with 2-0 PDS and 3-0 nylon suture. The drain was secured with Steri-Strips. A small Aquacel dressing was placed. And a compressive dressing was applied. Patient was woken from anesthesia and taken to recovery room in good condition. There no immediate complications from this procedure. Counts were correct Complications: none Post-operative Condition: stable Plan for aftercare: Weightbear as tolerated. The Aquacel dressing is waterproof and can remain in place for showers. On postop day 1 the drain will be pulled a new small dressing will be placed over the drain site. The patient will get IV antibiotics over the next day once cultures are finalized can be bridged to outpatient antibiotics which should be taken for 7-14 days. Follow up in orthopedic clinic in 10-14 days for suture removal.
[2021-09-25 13:56] LABS: Acinetobacter baumannii Not Detected (Not Detect); Candida albicans Not Detected (Not Detect); Candida glabrata Not Detected (Not Detect); Candida krusei Not Detected (Not Detect); Candida parapsilosis Not Detected (Not Detect); Candida tropicalis Not Detected (Not Detect); E. coli Not Detected (Not Detect); Enterobacter cloacae complex Not Detected (Not Detect); Enterobacteriaceae species Not Detected (Not Detect); Enterococcus species Not Detected (Not Detect); Haemophilus influenzae Not Detected (Not Detect); KPC (carbapenem-resist gene) Not Detected (Not Detect); Listeria monocytogenes Not Detected (Not Detect); Methicillin-resistant gene Detected (Not Detect); Neisseria meningitidis Not Detected (Not Detect); Proteus species Not Detected (Not Detect); Pseudomonas aeruginosa Not Detected (Not Detect); Serratia marcescens Not Detected (Not Detect); Staphylococcus species Detected (Not Detect); Streptococcus agalactiae (Gr B Not Detected (Not Detect); Streptococcus pneumonia Not Detected (Not Detect); Streptococcus pyogenes (Gr A) Not Detected (Not Detect); Streptococcus species Not Detected (Not Detect); Vancomycin-rest genes A/B Not Detected (Not Detect)
[2021-09-25] MEDS: LACTATED RINGERS 1,000 ML 84 ML IV (15:12)
[2021-09-25] MEDS: HYDROCODONE/ACET 5/325 TABLET 1 TAB PO (15:25)
[2021-09-25] MEDS: NICOTINE 21 MG PATCH TOP (16:34)
[2021-09-25] MEDS: INFLUENZA HD VACCINE 0.7 ML SYRINGE IM (16:35)
[2021-09-25] MEDS: QUETIAPINE 25 MG TABLET 12.5 MG PO (16:49)
--- NOTE | 2021-09-25 17:26 | PC.NURSE ---
1500 Pt up from PACU via stretcher and transferred via slider board to bed. Pt is awake and alert but oriented only to [facility]. Pt denies knowledge of day, date, situation, year, where he slept last night or the night before. States he takes no medications. Regarding feeling safe he states that he feels safe here but is homeless which has made him depressed. When asked about family or depression or suicide Pt states he does not have any family, does not want to be on this earth, and regarding plans for suicide and Pt stated if he could walk that he would throw himself in front of a car and end it all. Pt stated he feels safe here but is worried about where he will go when he is discharged. Pt oriented to room, call light, bed controls, and tv controls. Appetite is very good and Pt has already had 3 puddings 2 packs of cookies, juice, water, and a fruit cup. Pt is very forgetful and needs reinforcement about using call light and bed controls. Bed alarm on for safety. Notified Dr. Santos of Pt statements and orientation. Orders written.
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
[2021-09-25] MEDS: MELATONIN 3 MG TABLET 6 MG PO (21:01)
[2021-09-25] MEDS: DOCUSATE 100 MG CAPSULE PO (21:01)
[2021-09-25] MEDS: cefTRIAXone 1,000 MG in SODIUM CHLORIDE 0.9% 100 ML 200 ML IV (21:01)
[2021-09-26] MEDS: HYDROCODONE/ACET 5/325 TABLET 2 TAB PO (01:43)
--- NOTE | 2021-09-26 02:12 | PC.NURSE ---
Pt repeatedly coughing during and after eating. Pt educated and instructed to eat sitting up at a 90? angle, chew food completely, and swallow fully before taking another bite.
[2021-09-26] MEDS: LACTATED RINGERS 1,000 ML 84 ML IV (04:33)
[2021-09-26 05:00] VITALS: BP 119/65; PULSE 77; RESP 16; TEMP 37; O2SAT 96
[2021-09-26] MEDS: ACETAMINOPHEN 325 MG TABLET 650 MG PO ×4 (05:23→20:07)
[2021-09-26] MEDS: PANTOPRAZOLE DR 20 MG TABLET PO (05:23)
[2021-09-26 07:37] LABS: Add Manual Diff / Slide Review NO; Basophils Absolute Auto 0 /uL (0-100); Basophils Percent Auto 0.3 % (0-2); Eosinophils Absolute Auto 0 /uL (0-450); Hemoglobin 10.4 g/dL (13.5-17.5); Lymphocytes Absolute Auto 500 /uL (1100-4500); Lymphocytes Percent Auto 9.8 % (25-40); Mean Corpuscular HGB Conc 34.7 % (30-36); Mean Corpuscular Hemoglobin 32.8 PG (26-34); Mean Corpuscular Volume 94.3 fL (80-100); Monocytes Absolute Auto 400 /uL (0-900); Monocytes Percent Auto 7.4 % (3-14); Neutrophils Absolute Auto 4300 /uL (1500-7000); Neutrophils Percent Auto 82.5 % (50-75); Platelet Count 147 X10^3/uL (150-400); Red Blood Cell Count 3.19 X10^6/uL (4.5-5.9); Red Cell Distribution Width 13.4 % (11.6-14.8); White Blood Cell Count 5.3 X10^3/uL (4.5-11.0)
[2021-09-26 07:44] LABS: Magnesium 1.7 mg/dL (1.6-2.3)
[2021-09-26 07:45] LABS: Alanine Aminotransferase 35 IU/L (<50); Albumin 2.7 g/dL (3.5-5.0); Albumin Globulin Ratio 0.8 (1.0-2.8); Alkaline Phosphatase 86 U/L (38-126); Aspartate Aminotransferase 47 IU/L (17-59); Bilirubin Total 0.2 mg/dL (0.2-1.3); Blood Urea Nitrogen 15 mg/dL (9-20); Calcium 8.4 mg/dL (8.4-10.2); Carbon Dioxide 21 mmol/L (22-32); Chloride 107 mmol/L (98-107); Estimated Glomerular Filt Rate > 60.0 mL/min (>60); Globulin 3.2 g/dL (1.7-4.1); Glucose 160 mg/dL (80-110); HEMOLYSIS < 15 (0-50); Potassium 3.7 mmol/L (3.4-5.1); Sodium 135 mmol/L (137-145); Total Protein 5.9 g/dL (6.3-8.2)
--- NOTE | 2021-09-26 08:16 | PC.NURSE ---
Addendum entered by Kirt Gaona R.N. 09/26/21 14:35: IV Suman. Guillermina d/c'suresh. Dale Alanis d/c'suresh hemovac. Pt back in bed. having a snack. Original Note: Sleeping through assessment, does rouse but back to sleep easily. Offers no overt c/o pain or other issues presently.
[2021-09-26 08:55] VITALS: O2SAT 94
[2021-09-26] MEDS: ENOXAPARIN 40 MG/0.4 ML SYRINGE SUBCUT (09:29)
[2021-09-26] MEDS: FAMOTIDINE 20 MG TABLET PO ×2 (09:29→20:08)
[2021-09-26] MEDS: cefTRIAXone 1,000 MG in SODIUM CHLORIDE 0.9% 100 ML 200 ML IV (09:36)
[2021-09-26] MEDS: NICOTINE 21 MG PATCH TOP (09:36)
[2021-09-26] MEDS: LACTOBACILLUS ACIDOPHILUS TABLET 1 EACH PO ×2 (09:37→16:29)
[2021-09-26] MEDS: DOCUSATE 100 MG CAPSULE PO ×2 (09:37→20:08)
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
[2021-09-26] MEDS: VANCOMYCIN TROUGH 1 REQUEST MISC (10:45)
[2021-09-26] MEDS: VANCOMYCIN 1,250 MG/250 ML PIGGYBACK 200 MG IV ×2 (11:42→22:32)
[2021-09-26] MEDS: MAGNESIUM CHLORIDE 64 MG TABLET 128 MG PO (11:42)
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
[2021-09-26 13:00] VITALS: BP 118/67; PULSE 71; RESP 16; TEMP 36.7; O2SAT 96
--- NOTE | 2021-09-26 15:00 | PT.IPTN ---
Current Diagnoses Other specified bacterial agents as the cause of diseases classified elsewhere (09/24/21) Cellulitis of left lower limb (09/24/21) Other bursitis of knee, left knee (09/24/21) Other infective bursitis, unspecified site (09/24/21) Homelessness unspecified (09/24/21) Surgery Performed Operation Date: 09/25/21 12:00 Actual Procedures p I&D knee pre patella bursistis(Left) - Macarena Tyson MD Physical Therapy Treatment Note M2 PT-IP Current Condition Start: 09/25/21 14:58 Freq: NEEDED Status: Active Protocol: Document 09/26/21 10:07 AW (Rec: 09/26/21 10:45 AW [id number]) Physical Therapy Current Condition Current Condition Evaluation Date 09/26/21 Treatment Diagnosis LLE cellulitis, septic prepatellar bursitis s/p I&D; difficulty in walking Onset Date 09/18/21 M3 PT-IP Subjective Start: 09/25/21 14:58 Freq: NEEDED Status: Active Protocol: Document 09/26/21 14:46 KS (Rec: 09/26/21 15:35 KS [id number]) Subjective Physical Therapy Visit Type Type Treatment Note Visit Start Time 14:46 Visit Stop Time 15:00 Total Visit Minutes 14 Number of TALENT DEVELOPMENT DIRECTOR Visits 1 Physical Therapy Visit Comments Patient Comments I can't walk at all. M4 PT-IP Mobility and Gait Start: 09/25/21 14:58 Freq: NEEDED Status: Active Protocol: Document 09/26/21 14:46 KS (Rec: 09/26/21 15:35 KS [id number]) PT-Transfer Assessment Comments Mobility Comments Pt refused getting out of bed this PM, stating he just got back in bed and is too tired and having difficulty walking and using LLE. Able to complete 1x10 bilateral ankle pumps, quad sets, and glute sets and 1x5 SLR with increased difficulty with mobilizing LLE. Tried to encourage pt to get out of bed but stating not able at this time. SEAM STEAMER entered to perform bladder scan. M5 PT-IP Objective Assessments Start: 09/25/21 14:58 Freq: NEEDED Status: Active Protocol: Document 09/26/21 10:07 AW (Rec: 09/26/21 10:45 AW [id number]) Orientation Orientation/Cognition Level of Alertness Alert Orientation Name,Place,Situation Language Function Ability No Deficits Noted Safety Awareness Decreased Safety Awareness Gross Range of Motion Lower Extremity ROM Assessment Left Impaired Strength Lower Extremity Strength Assessment Left Impaired Hip 3+/5 Knee 3-/5 Ankle 3+/5 Comments Strength Comments RLE grossly 4-/5 Sensation Assessment Sensation Gross Sensation Right LE Impaired,Left LE Impaired Light Touch Impaired Proprioception (Position) Impaired Comments Sensation Comments Dull light touch sensation bilateral feet which pt states is baseline for him. M6 PT-IP Treatment Start: 09/25/21 14:58 Freq: NEEDED Status: Active Protocol: Document 09/26/21 14:46 KS (Rec: 09/26/21 15:35 KS [id number]) Physical Therapy Treatment Exercises Exercises Ankle Pumps,Gluteal Sets,Quad Sets,Straight Leg Raises Education Education Provided Weight Bearing Status,Safety Other Treatments Other Treatment Performed Educated pt on PT plan of care , weightbearing status, importance of continued mobility. M7 PT-IP Assessment and Plan Start: 09/25/21 14:58 Freq: NEEDED Status: Active Protocol: Document 09/26/21 14:46 KS (Rec: 09/26/21 15:35 KS [id number]) PT Summary Assessment and Plan Potential Rehabilitation Potential Fair Status of Condition at Evaluation Evolving Summary Impairments Pain,ROM,Strength,Balance, Sensation,Bed Mobility, Transfers,Gait Assessment Summary Pt unwilling to get out of bed today due to fatigue but able to complete LE exercises in bed. Difficulty mobilizing LLE compared to RLE. Will continue to progress pt as tolerated, however may require SNF to improve strength and functional mobility independence. Goals Bed Mobility Goal Independent Transfer Goal Standby Assistance,Front Wheeled Walker Gait Goal Standby Assistance,Front Wheel Walker Gait Distance 75 Days to Meet Goals 10 Frequency of Treatment Frequency Of Treatment Twice a Day Treatment Plan Physical Therapy Treatment Plan Bed Mobility Training,Transfer Training,Gait Training, Therapeutic Exercise,Balance Retraining,Post Op Education, Discharge Planning,Hot or Cold Pack Other Recommendations and Next Treatment transfer; ambulation with FWW Focus and chair follow; ther ex for BLE strength; re-assess appropriateness for once vs twice/day Precautions Other Precautions fall risk Weight Bearing Status Weight Bearing Status Weight Bear as Tolerated Allowed Weight Bearing Amount (enter % WBAT LLE or #) (%) Recommendations To Nursing Amount of Assist Needed 1 Person Assist Discharge Recommendations PT Discharge Recommendations Home with Assistance,SNF Rehab Equipment Needed for Home Before FWW Discharge Transportation Needs at Discharge Wheelchair/Cabulance
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
[2021-09-26 19:41] VITALS: BP 165/89; PULSE 68; RESP 16; TEMP 37.4; O2SAT 100
[2021-09-26] MEDS: MELATONIN 3 MG TABLET 6 MG PO (20:08)
[2021-09-26] MEDS: TRAZODONE 50 MG TABLET PO (20:08)
[2021-09-27] MEDS: HYDROCODONE/ACET 5/325 TABLET 2 TAB PO (01:11)
[2021-09-27 04:03] VITALS: BP 144/91; PULSE 79; RESP 16; TEMP 36.6
[2021-09-27] MEDS: ACETAMINOPHEN 325 MG TABLET 650 MG PO ×5 (05:47→21:09)
[2021-09-27 07:26] LABS: Add Manual Diff / Slide Review NO; Basophils Absolute Auto 100 /uL (0-100); Basophils Percent Auto 1.2 % (0-2); Eosinophils Absolute Auto 100 /uL (0-450); Eosinophils Percent Auto 1.7 % (2-4); Hematocrit 31.8 % (41-53); Lymphocytes Absolute Auto 1100 /uL (1100-4500); Lymphocytes Percent Auto 21.2 % (25-40); Mean Corpuscular HGB Conc 34.7 % (30-36); Mean Corpuscular Hemoglobin 32.9 PG (26-34); Monocytes Absolute Auto 500 /uL (0-900); Monocytes Percent Auto 9.4 % (3-14); Neutrophils Absolute Auto 3500 /uL (1500-7000); Neutrophils Percent Auto 66.5 % (50-75); Platelet Count 180 X10^3/uL (150-400); Red Blood Cell Count 3.35 X10^6/uL (4.5-5.9); Red Cell Distribution Width 13.2 % (11.6-14.8); White Blood Cell Count 5.2 X10^3/uL (4.5-11.0)
[2021-09-27 07:47] LABS: Alanine Aminotransferase 37 IU/L (<50); Albumin Globulin Ratio 0.9 (1.0-2.8); Alkaline Phosphatase 81 U/L (38-126); Aspartate Aminotransferase 38 IU/L (17-59); BUN Creatinine Ratio 10.1 (6-22); Bilirubin Total 0.2 mg/dL (0.2-1.3); Blood Urea Nitrogen 8 mg/dL (9-20); Calcium 8.3 mg/dL (8.4-10.2); Carbon Dioxide 27 mmol/L (22-32); Chloride 101 mmol/L (98-107); Estimated Glomerular Filt Rate > 60.0 mL/min (>60); Globulin 3.3 g/dL (1.7-4.1); Glucose 94 mg/dL (80-110); HEMOLYSIS < 15 (0-50); Potassium 3.8 mmol/L (3.4-5.1); Sodium 133 mmol/L (137-145); Total Protein 6.3 g/dL (6.3-8.2)
[2021-09-27 07:49] LABS: Magnesium 1.6 mg/dL (1.6-2.3)
[2021-09-27] MEDS: LACTOBACILLUS ACIDOPHILUS TABLET 1 EACH PO ×2 (10:23→17:59)
[2021-09-27] MEDS: cefTRIAXone 1,000 MG in SODIUM CHLORIDE 0.9% 100 ML 200 ML IV (10:24)
[2021-09-27] MEDS: ENOXAPARIN 40 MG/0.4 ML SYRINGE SUBCUT (10:24)
[2021-09-27] MEDS: FAMOTIDINE 20 MG TABLET PO ×2 (10:24→21:23)
[2021-09-27] MEDS: NICOTINE 21 MG PATCH TOP (10:25)
[2021-09-27] MEDS: DOCUSATE 100 MG CAPSULE PO (10:27)
[2021-09-27] MEDS: VANCOMYCIN 1,250 MG/250 ML PIGGYBACK 200 MG IV (11:16)
[2021-09-27 11:17] VITALS: BP 134/86; PULSE 89; RESP 18; TEMP 37.2; O2SAT 100
[2021-09-27] MEDS: MAGNESIUM CHLORIDE 64 MG TABLET 128 MG PO (11:27)
[2021-09-27] MEDS: DOXYCYCLINE HYCLATE 100 MG TABLET PO ×2 (12:03→21:09)
--- NOTE | 2021-09-27 12:04 | PT.IPTN ---
Addendum entered and electronically signed by Carleen Stapleton PTA 09/27/21 15:53: CONDUCTOR SLEEPING CAR sugggested to pt, OT consult for assessment of ADL promotion due to his comment requiring nursing help in bathroom, pt didn't decline suggestion of OT but stated didn't want to use bathroom wanted to just use urinal in sitting. CONDUCTOR SLEEPING CAR requested to care mgt OT consult at end of tx. Original Note: Current Diagnoses Other specified bacterial agents as the cause of diseases classified elsewhere (09/24/21) Cellulitis of left lower limb (09/24/21) Other bursitis of knee, left knee (09/24/21) Other infective bursitis, unspecified site (09/24/21) Homelessness unspecified (09/24/21) Surgery Performed Operation Date: 09/25/21 12:00 Actual Procedures p I&D knee pre patella bursistis(Left) - Macarena Tyson MD Physical Therapy Treatment Note M2 PT-IP Current Condition Start: 09/25/21 14:58 Freq: NEEDED Status: Active Protocol: Document 09/27/21 11:36 SP (Rec: 09/27/21 14:10 SP [id number]) Physical Therapy Current Condition Current Condition Evaluation Date 09/26/21 Treatment Diagnosis LLE cellulitis, septic prepatellar bursitis s/p I&D; difficulty in walking Onset Date 09/18/21 M3 PT-IP Subjective Start: 09/25/21 14:58 Freq: NEEDED Status: Active Protocol: Document 09/27/21 11:36 SP (Rec: 09/27/21 14:10 SP [id number]) Subjective Physical Therapy Visit Type Type Treatment Note Visit Start Time 11:36 Visit Stop Time 12:04 Total Visit Minutes 28 Number of CONDUCTOR SLEEPING CAR Visits 2 Physical Therapy Visit Comments Patient Comments Pt agreeable to working with therapy. Therapy Pain Assessment Pain When Pain Assessed At Rest Pain Present Pain Present Pain Reported Location back pain Intensity 6 Scale Used with mobility Pain Behaviors Facial Grimacing Pain Management Techniques Distraction,Modification of Treatment,Re-positioning, Timing of Activity with Medications Left Leg Intensity 6 Scale Used with mobility Pain Behaviors Facial Grimacing Pain Management Techniques Apply Cold,Distraction,Re- positioning,Timing of Activity with Medications M4 PT-IP Mobility and Gait Start: 09/25/21 14:58 Freq: NEEDED Status: Active Protocol: Document 09/27/21 11:36 SP (Rec: 09/27/21 14:10 SP [id number]) PT-Bed Mobility Assessment Supine to Sit Supine to Sit Standby Assistance,Head of Bed Elevated,Bedrails Sit to Supine Sit to Supine Standby Assistance,1 Person Assistance,Bedrails Scooting Scooting to Edge of Bed Standby Assistance PT-Transfer Assessment Sit to and From Stand Sit to and from Stand Contact Guard Assistance, Minimal Assistance,1 Person Assistance,Use of Upper Extremities Equipment Transfer Assistive Device Gait Belt,Front Wheeled Walker Orthotic/Prosthetic Devices or Brace: No Transfers Transfer Destination Bed,Chair Transfer Technique pt ambulated using FWW Transfer Ability Level of Assist Contact Guard Assistance, Minimal Assistance,1 Person Assistance,Use of Upper Extremities Comments Mobility Comments Pt elevated supine when arrived, provided urinal per pt request use in sitting in bed self completed, CONDUCTOR SLEEPING CAR left urinal on bathroom rail for nursing assessment output. Supine>sit, scoot to EOB HOB elevated SBA with use of UE to reposition LLE. Sit>stand CGA - Min A using FWW, cued for pushing from bed to stand. Ambulated around bed to chair 15 ft, cued for closer to FWW, slow FWW pacing, quad facilitation for safety knee extension during LLE WB, cued step pivot during turn and fully back up to chair feel BLE on chair posteriorly w/fWW fully and reach back, Min A slow descent sit into chair. 2 min rest sitting in chair. Sit>stand Min A walked back round bed 15 ft w/ fWW CGA, CONDUCTOR SLEEPING CAR managed IV pole throughout tx. Cued for sitting at EOB close to HOB, completed sit> supine SBA with use of bed rail. CONDUCTOR SLEEPING CAR provided warm blankets per pt request, alarmed bed to due to fall risk. He had all needs and call light in reach before left. Gait Assessment Gait Gait Assistance Required: Moderate Assistance,1 Person Assist Distance (Feet) 15 Able to Maintain Weight Bearing Status Yes During Gait Assistive Devices Assistive Device Gait Belt,Front Wheeled Walker Orthotic/Prosthetic Devices or Brace: No Gait Deviations General Gait Pattern Antalgic,Decreased Stride Length,Decreased Feet Clearance,Flexed Trunk,Step-to Gait Factors Limiting Gait Function Factors Limiting Gait Function Decreased Sensation,Decreased Strength,Difficulty Following Directions,Limited Range of Motion,Pain,Poor Balance,Poor Safety Awareness Comments Gait Comments see mobility comments Stair Climbing Assessment Comments Stair Climbing Comments Not assessed. PT-Balance Assessment Sitting Balance and Reactions Static Sitting Balance Ability Good Dynamic Sitting Balance Ability Good Standing Balance and Reactions Static Standing Balance Ability Good Dynamic Standing Balance Ability Fair Device Used FWW M5 PT-IP Objective Assessments Start: 09/25/21 14:58 Freq: NEEDED Status: Active Protocol: Document 09/26/21 10:07 AW (Rec: 09/26/21 10:45 AW [id number]) Orientation Orientation/Cognition Level of Alertness Alert Orientation Name,Place,Situation Language Function Ability No Deficits Noted Safety Awareness Decreased Safety Awareness Gross Range of Motion Lower Extremity ROM Assessment Left Impaired Strength Lower Extremity Strength Assessment Left Impaired Hip 3+/5 Knee 3-/5 Ankle 3+/5 Comments Strength Comments RLE grossly 4-/5 Sensation Assessment Sensation Gross Sensation Right LE Impaired,Left LE Impaired Light Touch Impaired Proprioception (Position) Impaired Comments Sensation Comments Dull light touch sensation bilateral feet which pt states is baseline for him. M6 PT-IP Treatment Start: 09/25/21 14:58 Freq: NEEDED Status: Active Protocol: Document 09/27/21 11:36 SP (Rec: 09/27/21 14:10 SP [id number]) Physical Therapy Treatment Education Education Provided Weight Bearing Status,Safety M7 PT-IP Assessment and Plan Start: 09/25/21 14:58 Freq: NEEDED Status: Active Protocol: Document 09/27/21 11:36 SP (Rec: 09/27/21 14:10 SP [id number]) PT Summary Assessment and Plan Potential Rehabilitation Potential Fair Status of Condition at Evaluation Evolving Summary Impairments Pain,ROM,Strength,Balance, Sensation,Bed Mobility, Transfers,Gait Progress Towards Goals Progressing Toward Goals,Slow Progress due to Pain,Slow Progress due to Activity Tolerance Assessment Summary Pt more agreeable to mobilizing with therapy this tx, SBA during bed mob, CGA- Min A sit<>stand and gait using fWW 15 ft across room x2 . Pt will require SNF for progress strength and functional independence. Goals Bed Mobility Goal Independent Transfer Goal Standby Assistance,Front Wheeled Walker Gait Goal Standby Assistance,Front Wheel Walker Gait Distance 75 Days to Meet Goals 10 Frequency of Treatment Frequency Of Treatment Twice a Day Treatment Plan Physical Therapy Treatment Plan Bed Mobility Training,Transfer Training,Gait Training, Therapeutic Exercise,Balance Retraining,Post Op Education, Discharge Planning,Hot or Cold Pack Other Recommendations and Next Treatment LE ex, transfers, gait w/ FWW Focus Precautions Other Precautions fall risk Weight Bearing Status Weight Bearing Status Weight Bear as Tolerated Allowed Weight Bearing Amount (enter % WBAT LLE or #) (%) Recommendations To Nursing Amount of Assist Needed Standby Assistance Discharge Recommendations PT Discharge Recommendations SNF Rehab Equipment Needed for Home Before FWW Discharge Transportation Needs at Discharge Wheelchair/Cabulance
--- NOTE | 2021-09-27 12:04 | PT.IPTN ---
Current Diagnoses Other specified bacterial agents as the cause of diseases classified elsewhere (09/24/21) Cellulitis of left lower limb (09/24/21) Other bursitis of knee, left knee (09/24/21) Other infective bursitis, unspecified site (09/24/21) Homelessness unspecified (09/24/21) Surgery Performed Operation Date: 09/25/21 12:00 Actual Procedures p I&D knee pre patella bursistis(Left) - Macarena Tyson MD Physical Therapy Treatment Note M2 PT-IP Current Condition Start: 09/25/21 14:58 Freq: NEEDED Status: Active Protocol: Document 09/27/21 11:36 SP (Rec: 09/27/21 14:10 SP [id number]) Physical Therapy Current Condition Current Condition Evaluation Date 09/26/21 Treatment Diagnosis LLE cellulitis, septic prepatellar bursitis s/p I&D; difficulty in walking Onset Date 09/18/21 M3 PT-IP Subjective Start: 09/25/21 14:58 Freq: NEEDED Status: Active Protocol: Document 09/27/21 11:36 SP (Rec: 09/27/21 14:10 SP [id number]) Subjective Physical Therapy Visit Type Type Treatment Note Visit Start Time 11:36 Visit Stop Time 12:04 Total Visit Minutes 28 Number of TURNSTILE ATTENDANT Visits 2 Physical Therapy Visit Comments Patient Comments Pt agreeable to working with therapy. Therapy Pain Assessment Pain When Pain Assessed At Rest Pain Present Pain Present Pain Reported Location back pain Intensity 6 Scale Used with mobility Pain Behaviors Facial Grimacing Pain Management Techniques Distraction,Modification of Treatment,Re-positioning, Timing of Activity with Medications Left Leg Intensity 6 Scale Used with mobility Pain Behaviors Facial Grimacing Pain Management Techniques Apply Cold,Distraction,Re- positioning,Timing of Activity with Medications M4 PT-IP Mobility and Gait Start: 09/25/21 14:58 Freq: NEEDED Status: Active Protocol: Document 09/27/21 11:36 SP (Rec: 09/27/21 14:10 SP [id number]) PT-Bed Mobility Assessment Supine to Sit Supine to Sit Standby Assistance,Head of Bed Elevated,Bedrails Sit to Supine Sit to Supine Standby Assistance,1 Person Assistance,Bedrails Scooting Scooting to Edge of Bed Standby Assistance PT-Transfer Assessment Sit to and From Stand Sit to and from Stand Contact Guard Assistance, Minimal Assistance,1 Person Assistance,Use of Upper Extremities Equipment Transfer Assistive Device Gait Belt,Front Wheeled Walker Orthotic/Prosthetic Devices or Brace: No Transfers Transfer Destination Bed,Chair Transfer Technique pt ambulated using FWW Transfer Ability Level of Assist Contact Guard Assistance, Minimal Assistance,1 Person Assistance,Use of Upper Extremities Comments Mobility Comments Pt elevated supine when arrived, provided urinal per pt request use in sitting in bed self completed, TURNSTILE ATTENDANT left urinal on bathroom rail for nursing assessment output. Supine>sit, scoot to EOB HOB elevated SBA with use of UE to reposition LLE. Sit>stand CGA - Min A using FWW, cued for pushing from bed to stand. Ambulated around bed to chair 15 ft, cued for closer to FWW, slow FWW pacing, quad facilitation for safety knee extension during LLE WB, cued step pivot during turn and fully back up to chair feel BLE on chair posteriorly w/fWW fully and reach back, Min A slow descent sit into chair. 2 min rest sitting in chair. Sit>stand Min A walked back round bed 15 ft w/ fWW CGA, TURNSTILE ATTENDANT managed IV pole throughout tx. Cued for sitting at EOB close to HOB, completed sit> supine SBA with use of bed rail. TURNSTILE ATTENDANT provided warm blankets per pt request, alarmed bed to due to fall risk. He had all needs and call light in reach before left. Gait Assessment Gait Gait Assistance Required: Moderate Assistance,1 Person Assist Distance (Feet) 15 Able to Maintain Weight Bearing Status Yes During Gait Assistive Devices Assistive Device Gait Belt,Front Wheeled Walker Orthotic/Prosthetic Devices or Brace: No Gait Deviations General Gait Pattern Antalgic,Decreased Stride Length,Decreased Feet Clearance,Flexed Trunk,Step-to Gait Factors Limiting Gait Function Factors Limiting Gait Function Decreased Sensation,Decreased Strength,Difficulty Following Directions,Limited Range of Motion,Pain,Poor Balance,Poor Safety Awareness Comments Gait Comments see mobility comments Stair Climbing Assessment Comments Stair Climbing Comments Not assessed. PT-Balance Assessment Sitting Balance and Reactions Static Sitting Balance Ability Good Dynamic Sitting Balance Ability Good Standing Balance and Reactions Static Standing Balance Ability Good Dynamic Standing Balance Ability Fair Device Used FWW M5 PT-IP Objective Assessments Start: 09/25/21 14:58 Freq: NEEDED Status: Active Protocol: Document 09/26/21 10:07 AW (Rec: 09/26/21 10:45 AW [id number]) Orientation Orientation/Cognition Level of Alertness Alert Orientation Name,Place,Situation Language Function Ability No Deficits Noted Safety Awareness Decreased Safety Awareness Gross Range of Motion Lower Extremity ROM Assessment Left Impaired Strength Lower Extremity Strength Assessment Left Impaired Hip 3+/5 Knee 3-/5 Ankle 3+/5 Comments Strength Comments RLE grossly 4-/5 Sensation Assessment Sensation Gross Sensation Right LE Impaired,Left LE Impaired Light Touch Impaired Proprioception (Position) Impaired Comments Sensation Comments Dull light touch sensation bilateral feet which pt states is baseline for him. M6 PT-IP Treatment Start: 09/25/21 14:58 Freq: NEEDED Status: Active Protocol: Document 09/27/21 11:36 SP (Rec: 09/27/21 14:10 SP [id number]) Physical Therapy Treatment Education Education Provided Weight Bearing Status,Safety M7 PT-IP Assessment and Plan Start: 09/25/21 14:58 Freq: NEEDED Status: Active Protocol: Document 09/27/21 11:36 SP (Rec: 09/27/21 14:10 SP [id number]) PT Summary Assessment and Plan Potential Rehabilitation Potential Fair Status of Condition at Evaluation Evolving Summary Impairments Pain,ROM,Strength,Balance, Sensation,Bed Mobility, Transfers,Gait Progress Towards Goals Progressing Toward Goals,Slow Progress due to Pain,Slow Progress due to Activity Tolerance Assessment Summary Pt more agreeable to mobilizing with therapy this tx, SBA during bed mob, CGA- Min A sit<>stand and gait using fWW 15 ft across room x2 . Pt will require SNF for progress strength and functional independence. Goals Bed Mobility Goal Independent Transfer Goal Standby Assistance,Front Wheeled Walker Gait Goal Standby Assistance,Front Wheel Walker Gait Distance 75 Days to Meet Goals 10 Frequency of Treatment Frequency Of Treatment Twice a Day Treatment Plan Physical Therapy Treatment Plan Bed Mobility Training,Transfer Training,Gait Training, Therapeutic Exercise,Balance Retraining,Post Op Education, Discharge Planning,Hot or Cold Pack Other Recommendations and Next Treatment LE ex, transfers, gait w/ FWW Focus Precautions Other Precautions fall risk Weight Bearing Status Weight Bearing Status Weight Bear as Tolerated Allowed Weight Bearing Amount (enter % WBAT LLE or #) (%) Recommendations To Nursing Amount of Assist Needed Standby Assistance Discharge Recommendations PT Discharge Recommendations SNF Rehab Equipment Needed for Home Before FWW Discharge Transportation Needs at Discharge Wheelchair/Cabulance
--- NOTE | 2021-09-27 14:30 | OT.IP.EVAL ---
Current Diagnoses Other specified bacterial agents as the cause of diseases classified elsewhere (09/24/21) Cellulitis of left lower limb (09/24/21) Other bursitis of knee, left knee (09/24/21) Other infective bursitis, unspecified site (09/24/21) Homelessness unspecified (09/24/21) Surgery Performed Operation Date: 09/25/21 12:00 Actual Procedures p I&D knee pre patella bursistis(Left) - Macarena Tyson MD Past Medical History (Last Reviewed 09/27/21 @ 16:19 by Dale Alanis PA-C) Burn of right knee Chronic back pain History of GI bleed History of skin graft Impaired gait Surgical History (Last Reviewed 09/27/21 @ 16:19 by Dale Alanis PA-C) History of skin graft Occupational Therapy Inpatient Evaluation/Re-Eval M1 PT/OT-IP Prior Functional Status Start: 09/25/21 14:58 Freq: NEEDED Status: Active Protocol: Document 09/27/21 14:20 [facility] (Rec: 09/27/21 16:52 [facility] [id number]) Medical Review Prior Functional Status Medical History Reviewed Yes Communication Pt is able to make his needs known. He is easily distracted and requires frequent redirection. He is a poor historian. Mobility and Gait Pt states he is homeless and his mobility is limited. He states he can get up from a bench on his own with some difficulty but can not get up from the ground without assist . I can't walk at all. Activities of Daily Living and IADL's When asked about bathroom needs, pt states he has to get up and void wherever he can. He is dealing with food insecurity and does not have regular access to bathing facilities. Pt states that he does not change his clothes at all and wears the same items all the time. Social History Household Members none Living Arrangements Homeless M2 OT-IP Current Condition Start: 09/27/21 16:29 Freq: Status: Active Protocol: Document 09/27/21 14:20 [facility] (Rec: 09/27/21 16:52 [facility] [id number]) Occupational Therapy Current Condition Current Condition Evaluation Date 09/27/21 Treatment Diagnosis LLE cellultis, s/p knee I & D Diagnosis Onset Date 09/24/21 M3 OT- IP Subjective and Pain Start: 09/27/21 16:29 Freq: Status: Active Protocol: Document 09/27/21 14:20 [facility] (Rec: 09/27/21 16:52 [facility] [id number]) OT- Subjective Occupational Therapy Visit Type Type Initial Evaluation Visit Start Time 14:20 Visit Stop Time 14:50 Total Visit Minutes 30 Occupational Therapy Visit Comments Patient Comments Pt agreed to talk to OT. Patient/Caregiver Goals Pt not sure what he wants to do and continually states, I just do not know. OT Pain Assessment Pain When Pain Assessed At Rest Pain Present Pain Present Pain Reported M4 OT- IP ADL's Start: 09/27/21 16:29 Freq: Status: Active Protocol: Document 09/27/21 14:20 [facility] (Rec: 09/27/21 16:52 [facility] [id number]) OT [id number] Comments OT Self-Feeding Comments NOt at meal time. OT ADL-Grooming Comments OT Grooming Comments Pt refused. OT ADL-Oral Care Comments Oral Care Comments Pt refused. OT ADL-Dressing General Eval Lower Body Dressing Ability Standby Assistance Comments OT Dressing Comments Pt states prior not able to take off his pants or socks , however maybe due to the fact pt is homeless. Pt however when asked to try to take off his socks pt insists, I just can not do it. Insisted pt try and encouraged pt to try, pt able to lift up his foot to the bed and shana/doff his right sock. OT ADL-Toileting Comments OT Toileting Comments Pt states not having to go. M5 OT- IP IADL's Start: 09/27/21 16:29 Freq: Status: Active Protocol: Document 09/27/21 14:20 [facility] (Rec: 09/27/21 16:52 [facility] [id number]) OT-Instrumental Activities of Daily Living Home Safety Awareness Home Safety Comments Pt is homeless and poor insight to his need and states, I just hope I can be helped. M6 OT- IP Functional Cognition Start: 09/27/21 16:29 Freq: Status: Active Protocol: Document 09/27/21 14:20 [facility] (Rec: 09/27/21 16:52 [facility] [id number]) Cognitive Factors Limiting Selfcare Function Cognitive Ability Level of Alertness Alert Patient Orientation Name Attention Span Ability Capable of Focused Attention, Capable of Sustained Attention Ability to Follow Commands Able to Follow One Step Commands with Increased Time, Able to Follow One Step Commands with Repetition Memory Description Short Term Impaired,Working Impaired Safety Awareness Underestimates Need for Assistance Problem Solving Ability Unable to Identify Errors, Needs Assist to Identify Solutions Executive Function Ability Unable to Filter Distractions, Unable to Organize Plans, Unable to Remember Details Cognitive Tests SLUMS Pt scored 8/30 on the SLUMS. Pt only able to states the state we are in, able to add 3 +20, able to recall 9 animals in one minute, able to state 3 digit number backwards, able to draw an x on the triangle and pick out the largest shape and answer 1/4 questions right after a paragraph read. Pt's score implies dementia, however pt appears indifferent , and lack of motivation while completing the assessment. IN addition his infection maybe affecting his cognitive status as well. To retest pt in a few days as pt clears if still here. 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 Pt having difficulty to read the clock correctly stating is was 1436 versus 1426. Pt having difficulty with word finding when trying to identify body parts during light touch. OT- Vision and Hearing OT- Hearing Assessment OT- Hearing Assessment WFL OT- Vision Assessment Vision Assessment Comments Pt needing to hold post it note close up in order to read it. M7 OT- IP Mobility and Balance Start: 09/27/21 16:29 Freq: Status: Active Protocol: Document 09/27/21 14:20 [facility] (Rec: 09/27/21 16:52 [facility] [id number]) OT- Bed Mobility Assessment Rolling Level of Assistance Standby Assistance OT-Transfer Assessment Sit to and From Stand Sit to and from Stand Standby Assistance Comments Mobility Comments Pt not wanting to stand and insisting pt try to stand and then able to get out of bed on his own and stand however with use of the back of his legs on the bed to assist. Pt then proceeded to get back in bed. Pt able to scoot himself up without any issues. OT- Balance Assessment Sitting Balance and Reactions Static Sitting Balance Ability Normal Dynamic Sitting Balance Ability Good Standing Balance and Reactions Static Standing Balance Ability Fair M8 OT- IP Objective Assessments Start: 09/27/21 16:29 Freq: Status: Active Protocol: Document 09/27/21 14:20 [facility] (Rec: 09/27/21 16:52 [facility] [id number]) OT Gross Range of Motion Upper Extremity Range of Motion Assessment Bilaterally Impaired OT Strength Upper Extremity Strength Assessment Bilaterally Impaired OT-Muscle Tone Assessment Muscle Tone WNL Yes OT Sensation Assessment Comments Summary Comments Appears intact for light touch . M9 OT- IP Assessment and Plan Start: 09/27/21 16:29 Freq: Status: Active Protocol: Document 09/27/21 14:20 [facility] (Rec: 09/27/21 16:52 [facility] [id number]) OT Summary Assessment and Plan Potential Rehabilitation Potential Fair Analytic Complexity at Evaluation Moderate Summary OT Impairments Pain,Strength,Balance, Functional Cognition, Functional Mobility,Grooming, Dressing,Toileting,Bathing, Toilet Transfers,Shower Transfers,Activity Tolerance Progress Towards Goals Slow Progress due to Medical Issues,Slow Progress due to Cognition Assessment Summary Pt is homeless and per pt has not been able to care for himself. Pt questionable how independence pt was prior as pt inconsistent when talking about how he was doing prior. Pt initially states unable to do his socks and pants , but then today able to doff/don his right sock. Pt scored 8/30 on the SLUMS which implies cognitive deficits but may be affected by his infection and lack of motivation, insight to be proactive on his needs. Continue to try to see pt for OT needs to assess his ADl needs. Pt would benefit from SNF initially to maximize his ADl and mobility needs and then benefit from assisted living or adult family home. Goals Self-Feeding Goal Independent Grooming Goal Independent Dressing Goal Independent Toileting Goal Independent Bathing Goal Independent Toilet Transfer Goal Independent Shower Transfer Goal Independent Days to Meet Goals 15 Frequency of Treatment Frequency Of Treatment Once a Day Treatment Plan OT Treatment Plan ADL Training,Functional Cognition Training,Functional Mobility,Patient/Family Education,Discharge Planning Other Treatment Recommendations and Next standing at sink for grooming Treatment Focus needs Discharge Recommendations OT Discharge Recommendations SNF Rehab,[facility] Transportation Needs at Discharge Private Vehicle
--- NOTE | 2021-09-27 14:37 | P.PN_ITS ---
Subjective Subjective Interval history: 70-YEAR-OLD HOMELESS MALE WHO IS BEING TREATED FOR LEFT KNEE ABSCESS CULTURE GROWING STAPH AUREUS HE DID NOT HAVE ANY SPECIFIC COMPLAINTS TODAY HE WAS EATING DURING MY VISIT DENIES ANY CHEST PAIN. NO CHEST PRESSURE NO FEVER OR CHILLS Exam Vital Signs (past 8 hours): - 09/27/21 11:17 Temperature 99.0 F Pulse Rate 89 Respiratory Rate 18 Blood Pressure 134/86 Pulse Oximetry 100 Oxygen Delivery Method Room Air Oxygen Flow Rate 0 Narrative Exam Narrative: NO ACUTE DISTRESS.? PATIENT IS ALERT ORIENTED X3.? POOR DENTITION.? APPEARS MUCH OLDER THAN STATED AGE. POOR HYGIENE HEAD ATRAUMATIC NORMOCEPHALIC NECK : SUPPLE WITHOUT ADENOPATHY NO CAROTID BRUITS EYE:? EOMI, PERRLA, NORMAL CONJUNCTIVA; NO JAUNDICE CHEST:? REGULAR RATE.? ? NO RUBS.? PMI IS NON DISPLACED.? NO MURMURS; NORMAL S1- S2 PULMONARY:? DECREASED BS OVER THE BASES.? MILD BIBASILAR CRACKLES NOTED; NO INCREASED DULLNESS TO PERCUSSION ABDOMEN:? SOFT.? NONTENDER.? NONDISTENDED.? BOWEL SOUNDS ARE PRESENT IN ALL 4 QUADRANTS.? NO REBOUND TENDERNESS EXTREMITIES:? TRACE BILATERAL LOWER EXTREMITY EDEMA..? NO CYANOSIS CLUBBING NOTED. DRESSING/BANDAGE TO LEFT KNEE. NEURO:? CRANIAL NERVES 2-12 GROSSLY INTACT. NO FOCAL NEUROLOGICAL DEFICIT NOTED. MSK:? NORMAL RANGE OF MOTION FOR AGE.? NO JOINT EFFUSION. SKIN:? SURGICAL INCISION TO THE LEFT KNEE. SEROSANGUINEOUS DRAINAGE APPRECIATED. REDNESS ALSO APPRECIATED :? NORMAL EXTERNAL GENITALIA.? BLANC CATHETER IN PLACE.? YELLOWISH URINE PSYCH :? ? ANXIOUS AND DEPRESSED. ALERT AWAKE ORIENTED X3 Objective Labs Result Diagrams: 09/27/21 07:10 09/27/21 07:10 Labs: Laboratory Results - last 24 hr 09/27/21 09/27/21 09/27/21 07:10 07:10 07:10 WBC 5.2 RBC 3.35 L Hgb 11.0 L Hct 31.8 L MCV 95.0 MCH 32.9 MCHC 34.7 RDW 13.2 Plt Count 180 Neut % (Auto) 66.5 Lymph % (Auto) 21.2 L [place] % (Auto) 9.4 Eos % (Auto) 1.7 L Baso % (Auto) 1.2 Neut # (Auto) 3500 Lymph # (Auto) 1100 [place] # (Auto) 500 Eos # (Auto) 100 Baso # (Auto) 100 Sodium Cancelled 133 L Potassium Cancelled 3.8 Chloride Cancelled 101 Carbon Dioxide Cancelled 27 BUN Cancelled 8 L Creatinine Cancelled 0.79 Estimated GFR Cancelled > 60.0 BUN/Creatinine Ratio Cancelled 10.1 Glucose Cancelled 94 Calcium Cancelled 8.3 L Magnesium 1.6 Total Bilirubin 0.2 AST 38 ALT 37 Alkaline Phosphatase 81 Total Protein 6.3 Albumin 3.0 L Globulin 3.3 Albumin/Globulin Ratio 0.9 L PFSH Medical History Burn of right knee Chronic back pain History of GI bleed Impaired gait Surgical History History of skin graft Family History Father Stroke Mother Varicose veins of both lower extremities Psychiatric disorder Brother Myocardial infarction Social History household members: other Smoking Status: Current every day smoker alcohol intake: current Assessment & Plan Assessment & Plan narrative: PROBLEM LIST LEFT KNEE SEPTIC BURSITIS.? [place].? STATUS POST I&D DAY 3.? ORTHOPEDIC SURGERY ON BOARD ?ANXIETY IN AND? DEPRESSION; NOS ?TOBACCO ABUSE.? COUNSELING GIVEN ?POSSIBLE ETOH ABUSE.? COUNSELING GIVEN ?ANEMIA.? COULD BE DUE TO ACUTE BLOOD LOSS ? G POSITIVE COCCI.? COAGULASE-NEGATIVE STAPH.? LIKELY ? CONTAMINATION. PHYSICAL DECONDITIONING. MULTIFACTORIAL PLAN 09/27 NO SIGN OF COMPLICATION AT THE SITE OF SURGERY ASSISTANCE FROM ORTHOPEDIC SURGERY TEAM GREATLY APPRECIATED PATIENT S CULTURE GROWING STAPH AUREUS STARTED DOXYCYCLINE PER SENSITIVITY REPORT WILL CONSIDER ADDING A 2ND AGENT WELL SUCH LEVAQUIN OTHERWISE PATIENT APPEARED TO BE CLINICALLY IMPROVED HE LOOKS TO BE PHYSICALLY DECONDITIONED SPOKE TO CASE MANAGEMENT PATIENT MIGHT NEED PLACEMENT TO LONG-TERM FACILITY HE IS BEING EVALUATED AND TREATED BY PHYSICAL THERAPY AND OCCUPATIONAL THERAPY TEAMS ADDITIONAL MANAGEMENT PER CLINICAL COURSE LIKELY DISCHARGE ONCE A BED CAN BE SECURED AN ACCEPTING SNF 09/26 ?KNEE CULTURES NOTED TO? GROWING? STAPH AUREUS EXPECTED. ? SUSPECT MRSA ?PATIENT IS ON BROAD COVERAGE WITH VANCOMYCIN AND ROCEPHIN FOR NOW ?WILL CONSIDER SWITCHING TO ORAL? ZYVOX IF NEEDED ? CONTINUE TO FOLLOW UP CLOSELY ?MOBILIZE PATIENT? WHILE MAINTAINING ORTHOPEDIC SURGERY RESTRICTION ?WILL ALSO DISCONTINUE BLANC CATHETER TODAY ?PATIENT TO BE OUT OF BED IN CHAIR WITH EACH MEAL ?OT AND PT TEAMS ON BOARD IN ASSISTED GREATLY APPRECIATED WELL ?MENTOR FOR PRECAUTION AT ALL TIMES ? DAILY LABS TO FOLLOW ?ADDITIONALLY? MANAGEMENT PER CLINICAL COURSE 09/25 ?CONTINUE CURRENT ANTIBIOTICS FOR NOW ?GRAM-POSITIVE COCCI REPORTED ON 11/05 BOTTLES A BLOOD CULTURE ?TAKEN ON ADMISSION. SUSPECT CONTAMINATION ?CONSIDER REPEAT BLOOD CULTURE IF INDICATED ONLY ?ASSISTANCE FOR ORTHOPEDIC SURGERY GREATLY APPRECIATED ?MONITOR CLOSELY FOR ANY SIGN OF COMPLICATIONS POSTOPERATIVELY ?MOBILIZE PER ORTHOPEDIC SURGERY RECOMMENDATIONS ONLY ?CONTINUE LOVENOX FOR DVT PROPHYLAXIS ?WILL SWITCH TO ELIQUIS ONCE INDICATED ?CONSULT CASE MANAGEMENT FOR PLACEMENT ?PATIENT IS HOMELESS ?MONITOR INPUT AND OUTPUT CLOSELY ?HE TRAZODONE AND MELATONIN ADDED FOR SLEEP ?CERVICAL ADDED NEEDED FOR SIGN OF AGITATION AND ANXIETY ?AVOID BENZODIAZEPINE DUE TO PATIENT'S AGE ?NICOTINE PATCH ALSO ADDED TO HELP WITH CRAVING ?DISCONTINUE BLANC CATHETER ONCE INDICATED ?ADDITIONAL MANAGEMENT PER CLINICAL COURSE Time Spent With Patient Critical Care time: I spent a total of [] minutes of critical care time on this patient's care today; this time is exclusive of procedural time. Quality VTE Deep Vein Thrombosis/Pulmonary Embolism Present on Admission: No
--- NOTE | 2021-09-27 15:09 | CM.DANOTE ---
Patient is a 70 yo male who was admitted on 09/24/21 for Hip Pain. Pt has [facility] and [facility] [employer] for insurance and his PCP is not listed. EMR was reviewed. Per MD, pt with cellulitis and chronic pain issues and will consult Ortho to determine if I&D needed. Per PT, pt was able to mobilize around his bed and back today and to chair in his room which is an improvement from yesterday and will attempt again this afternoon. OT was ordered and completed the SLUMS and pt scored 8/30 but difficult to determine if due to cognitive issues or more lack of motivation/willingness to fully participate. SW met bedside with pt and explained role and he confirms he used to live with his ex-girlfriend Brittnee and Brittnee's son also helped but since then they have broken up and are estranged and Brittnee reportedly has gotten back into drugs and is also homeless and staying with different people. Pt states he has been staying on the streets for an undetermined amount of time and has had increasing chronic pain issues and ambulation issues. Pt intially unable to identify another support person but then states he received a call from ex-gf Brittnee's Dtr Letty Perry [phone] who pt states is on my side and supportive and knows her mom is back into drugs. Pt gives permission for SW to contact her for d/c planning and to assign her as pt's designated support person on pwk. Pt denies any other place or person he can stay with. Pt states he would be agreeable to SNF again as he went to [facility] in Jun 2020 last year but SW discussed that pt's homelessness is a barrier to acceptance at SNF. SW discussed completing the Medicaid LTC sky and pt very agreeable as he feels he needs 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 SW brought back in the Medicaid LTC application and pt helped to provide his financial and personal information and SW provided him with a copy and then faxed it to [facility] along with also faxing an Expedited [facility] referral for LTC placement (although [facility] stating that they are so overwhelmed with applications that referrals are not really able to be expedited). MAXWELL attempted to call pt's identified primary contact Letty and left msg without pt info as vm was general and did not state Letty's name. If pt improves in his mobility and independence with ADL's, pt could likely d/c with support from [facility]'s Motel Voucher Program. SW called [facility] and they do not anticipate any openings until next week and then likely cannot accept another LTC placement patient. Plan: SW to follow closely for further PT/OT to determine if he can d/c to the Motel Voucher Program and follow up with Medicaid LTC sky after the holiday. ANTOINETTE Newton Discharge Planning/Care Management CM Discharge Assessment Start: 09/27/21 15:02 Freq: Status: Active Protocol: Document 09/27/21 15:02 BF (Rec: 09/27/21 15:06 BF [id number]) Discharge Planning Assessment Assigned Coat Joiner ANTOINETTE Mckenna DPOA/Assigned Designee Name none Contact Information informally friend Letty Perry [phone] Advance Directives? No Advance Directives on File No History Provided By Patient,Medical Record Has Patient been admitted in last 30 No days? Prior Living Arrangements Homeless Household Members none Comment Homeless Independent with ADL's Yes: sometimes Is patient alert and oriented? Yes: appears to but scored 8/ 30 SLUMS Needs Assistance With Grooming,Meal Prep,Managing Medications,Home Chores / Shopping Caregiver for Another No Patient/Family Preference Residential Facility Comment Likely not accepted at SNF due to homeless status Barriers to Discharge Yes Comment homelessness, mobilty issues Discharge Plan Central Supply Assistant Care Facility Referrals Initiated Medicaid Application Review Status In Process Please Provide Date Initial DC 09/27/21 Assessment Was Performed Next Review Type Continued Stay Review
--- NOTE | 2021-09-27 15:20 | PT-IP ANOTE ---
Pt refused pm tx when arrived stating having L leg and LBP and not willing to mobilize. DRUG SAFETY PHYSICIAN reminded him improved in mobility in am even with pain and of am conversation that he stated wanted to work together in pm so returned this pm. DRUG SAFETY PHYSICIAN asked if had the energy to be seen 2x/day and see OT, pt reported I just don't think can do alot of activity, can I just be see 1x/day. I can do more tomorrow morning. DRUG SAFETY PHYSICIAN consulted with supervising PT Orsie, requested OT consult for assessment in ADL promotion, pt not tolerating BID with reports of c/o L leg pain and LBP premedicated 1 hr prior to arrival with Tylenol and pt was agreeable reducing PT to QD, if improved in mobility can reassess at that time. PT will document reduction in PT to QD.
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
--- NOTE | 2021-09-27 16:03 | PT.IPTN ---
Current Diagnoses Other specified bacterial agents as the cause of diseases classified elsewhere (09/24/21) Cellulitis of left lower limb (09/24/21) Other bursitis of knee, left knee (09/24/21) Other infective bursitis, unspecified site (09/24/21) Homelessness unspecified (09/24/21) Surgery Performed Operation Date: 09/25/21 12:00 Actual Procedures p I&D knee pre patella bursistis(Left) - Macarena Tyson MD Physical Therapy Treatment Note M2 PT-IP Current Condition Start: 09/25/21 14:58 Freq: NEEDED Status: Active Protocol: Document 09/27/21 11:36 SP (Rec: 09/27/21 14:10 SP [id number]) Physical Therapy Current Condition Current Condition Evaluation Date 09/26/21 Treatment Diagnosis LLE cellulitis, septic prepatellar bursitis s/p I&D; difficulty in walking Onset Date 09/18/21 M3 PT-IP Subjective Start: 09/25/21 14:58 Freq: NEEDED Status: Active Protocol: Document 09/27/21 16:01 AB (Rec: 09/27/21 16:03 AB [id number]) Subjective Physical Therapy Visit Type Type Administrative Note Notes MILITARY EXCHANGE WIRELESS MANAGER informed this PT regarding pt decrease activity tolerance and unable to tolerate BID PT tx. pt also has OT eval order. Will decrease PT tx frequency to once a day will continue to assess progress. M6 PT-IP Treatment Start: 09/25/21 14:58 Freq: NEEDED Status: Active Protocol: Document 09/27/21 11:36 SP (Rec: 09/27/21 14:10 SP [id number]) Physical Therapy Treatment Education Education Provided Weight Bearing Status,Safety M7 PT-IP Assessment and Plan Start: 09/25/21 14:58 Freq: NEEDED Status: Active Protocol: Document 09/27/21 16:01 AB (Rec: 09/27/21 16:03 AB [id number]) PT Summary Assessment and Plan Frequency of Treatment Frequency Of Treatment Once a Day
--- NOTE | 2021-09-27 16:14 | DI.US.S_ITS ---
PROCEDURE: US PERIPH VENOUS LOW EXTREM LT INDICATIONS: PAIN, EDEMA TECHNIQUE: Real-time imaging, as well as color and pulse Doppler interrogation, were performed of the lower extremity deep veins from the inguinal ligament to the popliteal fossa. COMPARISON: None. FINDINGS: The common femoral, femoral and popliteal veins are normally compressible, and free of intraluminal thrombus. Color and pulse Doppler demonstrate normal phasic intraluminal flow. There is normal augmentation response to distal compression maneuver. IMPRESSION: 1. No sonographic evidence of DVT. Dictated by: Colby Johnson M.D. on 09/27/2021 at 19:40 Approved by: Colby Johnson M.D. on 09/27/2021 at 19:41
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
[2021-09-27 18:00] VITALS: BP 128/90; PULSE 98; RESP 17; TEMP 36.8; O2SAT 98
--- NOTE | 2021-09-27 18:44 | PC.NURSE ---
Addendum entered by Sheila Tompkins R.N. 09/27/21 19:21: late entry: got an order for speech consult, pt coughs every time he drinks and eat. he does keep his HOB down when he eats. pt needs frequent reminder to keep his hob 90 degrees. Original Note: A&OXself. pt does know who the president is. pt c/o lt knee and back pain 05/13. FLACC 0. denies calf pain. lt leg has been edematous. pedal pulse palpable. pt only wants to work with physical therapist once a day. scd placed on Rt. knee only. SBA with fww. he sat in the chair for 5 minutes but quickly want to get back in bed.
[2021-09-27 19:48] VITALS: BP 143/83; PULSE 83; RESP 16; TEMP 36.8; O2SAT 97
[2021-09-27] MEDS: TRAZODONE 50 MG TABLET PO (21:09)
[2021-09-27] MEDS: MELATONIN 3 MG TABLET 6 MG PO (21:10)
[2021-09-28 06:00] VITALS: BP 158/89; PULSE 87; RESP 18; TEMP 37.1; O2SAT 96
[2021-09-28 06:52] LABS: Add Manual Diff / Slide Review NO; Basophils Absolute Auto 100 /uL (0-100); Basophils Percent Auto 1.8 % (0-2); Eosinophils Absolute Auto 200 /uL (0-450); Eosinophils Percent Auto 3.2 % (2-4); Hematocrit 33.5 % (41-53); Hemoglobin 11.5 g/dL (13.5-17.5); Lymphocytes Absolute Auto 1000 /uL (1100-4500); Mean Corpuscular HGB Conc 34.5 % (30-36); Mean Corpuscular Hemoglobin 32.6 PG (26-34); Mean Corpuscular Volume 94.6 fL (80-100); Monocytes Absolute Auto 500 /uL (0-900); Neutrophils Absolute Auto 3100 /uL (1500-7000); Platelet Count 207 X10^3/uL (150-400); Red Blood Cell Count 3.54 X10^6/uL (4.5-5.9); Red Cell Distribution Width 13.4 % (11.6-14.8); White Blood Cell Count 4.8 X10^3/uL (4.5-11.0)
[2021-09-28 07:03] LABS: Magnesium 1.6 mg/dL (1.6-2.3)
[2021-09-28 07:04] LABS: Alanine Aminotransferase 31 IU/L (<50); Albumin 3.3 g/dL (3.5-5.0); Alkaline Phosphatase 95 U/L (38-126); Aspartate Aminotransferase 29 IU/L (17-59); BUN Creatinine Ratio 10.6 (6-22); Bilirubin Total 0.3 mg/dL (0.2-1.3); Blood Urea Nitrogen 9 mg/dL (9-20); Calcium 8.6 mg/dL (8.4-10.2); Carbon Dioxide 27 mmol/L (22-32); Chloride 99 mmol/L (98-107); Estimated Glomerular Filt Rate > 60.0 mL/min (>60); Globulin 3.4 g/dL (1.7-4.1); Glucose 101 mg/dL (80-110); HEMOLYSIS < 15 (0-50); Potassium 3.9 mmol/L (3.4-5.1); Sodium 133 mmol/L (137-145); Total Protein 6.7 g/dL (6.3-8.2)
[2021-09-28 07:06] LABS: C-Reactive Protein Quant 4.2 mg/dL (<1.0)
[2021-09-28] MEDS: DOCUSATE 100 MG CAPSULE PO ×2 (08:27→20:34)
[2021-09-28] MEDS: FAMOTIDINE 20 MG TABLET PO ×2 (08:27→20:34)
[2021-09-28] MEDS: ENOXAPARIN 40 MG/0.4 ML SYRINGE SUBCUT (08:27)
[2021-09-28] MEDS: LACTOBACILLUS ACIDOPHILUS TABLET 1 EACH PO ×2 (08:27→16:21)
[2021-09-28] MEDS: DOXYCYCLINE HYCLATE 100 MG TABLET PO ×2 (08:27→20:34)
[2021-09-28] MEDS: ACETAMINOPHEN 325 MG TABLET 650 MG PO ×3 (08:27→20:34)
[2021-09-28] MEDS: NICOTINE 21 MG PATCH TOP (08:28)
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
--- NOTE | 2021-09-28 15:39 | CM.DPC ---
DCP/continued: Reviewed chart. Provider reports patient medically stable for discharge. However, patient currently requiring po abx and wound care. Reviewed previous CASHIER PAYMENTS RECEIVED notes indicating that expedited long-term application faxed. C[employer] PAYMENTS RECEIVED received vm from [facility] indicating that they were attempting to reach out to CM team on 09-27-21 at 3:50pm. Unfortunately, they are unable to do more with referral until Saturday10-02-21 when they return. [facility] [phone]. Patient medically stable and CASHIER PAYMENTS RECEIVED hopeful patient will be able to utilized motel voucher program or homeless senior care. P: Pending. LILLIAN
--- NOTE | 2021-09-28 16:43 | PT.IPTN ---
Current Diagnoses Other specified bacterial agents as the cause of diseases classified elsewhere (09/24/21) Cellulitis of left lower limb (09/24/21) Other bursitis of knee, left knee (09/24/21) Other infective bursitis, unspecified site (09/24/21) Homelessness unspecified (09/24/21) Surgery Performed Operation Date: 09/25/21 12:00 Actual Procedures p I&D knee pre patella bursistis(Left) - Macarena Tyson MD Physical Therapy Treatment Note M2 PT-IP Current Condition Start: 09/25/21 14:58 Freq: NEEDED Status: Active Protocol: Document 09/28/21 17:01 SP (Rec: 09/28/21 17:24 SP [id number]) Physical Therapy Current Condition Current Condition Evaluation Date 09/26/21 Treatment Diagnosis LLE cellulitis, septic prepatellar bursitis s/p I&D; difficulty in walking Onset Date 09/18/21 M3 PT-IP Subjective Start: 09/25/21 14:58 Freq: NEEDED Status: Active Protocol: Document 09/28/21 17:01 SP (Rec: 09/28/21 17:24 SP [id number]) Subjective Physical Therapy Visit Type Type Treatment Note Visit Start Time 16:19 Visit Stop Time 16:43 Total Visit Minutes 24 Number of HEEL CUTTER Visits 3 Physical Therapy Visit Comments Patient Comments Pt agreeable to working with therapy getting up to the bathroom. Therapy Pain Assessment Pain When Pain Assessed During Mobility Pain Present Pain Present Pain Reported Location back pain Scale Used no scale quantified Pain Behaviors Facial Grimacing Pain Management Techniques Distraction,Modification of Treatment,Re-positioning, Timing of Activity with Medications Left Leg Scale Used no scale quantified Pain Behaviors Facial Grimacing Pain Management Techniques Distraction,Re-positioning, Timing of Activity with Medications M4 PT-IP Mobility and Gait Start: 09/25/21 14:58 Freq: NEEDED Status: Active Protocol: Document 09/28/21 17:01 SP (Rec: 09/28/21 17:24 SP [id number]) PT-Bed Mobility Assessment Supine to Sit Supine to Sit Contact Guard Assistance, Minimal Assistance,Head of Bed Elevated,Bedrails Scooting Scooting to Edge of Bed Standby Assistance PT-Transfer Assessment Sit to and From Stand Sit to and from Stand Contact Guard Assistance, Minimal Assistance,1 Person Assistance,Use of Upper Extremities Equipment Transfer Assistive Device Gait Belt,Front Wheeled Walker Orthotic/Prosthetic Devices or Brace: No Transfers Transfer Destination Chair,Toilet Transfer Technique pt ambulated using FWW Transfer Ability Level of Assist Contact Guard Assistance, Minimal Assistance,1 Person Assistance,Use of Upper Extremities Comments Mobility Comments Pt flat in trying to watch TV bed when arrived. Agreeable to OOB with therapy. Pt elevated bed 80 deg completed elevated supine>sit R side of bed and scoot to EOB CG-Min A for LLE repositioning to EOB. HEEL CUTTER noted L lower leg pinkish red with reports L leg still hurting, unsure if will be able to stand on L leg alot. Sit>stand, cues for pushing from bed not BUE on FWW, pt impulsive 15%A, ambulated around end of bed to bathroom CG- 5%A using FWW receiprocal stepping with flexed posture soft knee flexed and Mod BUE WB on FWW especially during LLE WB to off load. Pt required increase 25%A during SPT in bathroom with cues and support for safety FWW repositioning and fully back step to toilet then use grab bar for safety descent toilet. Pt completed BM and voided. Stood using grab bar, attempted to self pericare but noted gown in way, required assist and education on completion of pericare skin integrity using cleansing wipes while providing CGA for trunk balance. HEEL CUTTER suggested washing hands at sink, initially pt declined stating I didn't get anything on my hands. Finally agreed after provided education on hygiene and use of urinal in bed known . Pt required CGA- Min A for trunk balance, 1 UE WB on sink and cues for proper use of soap dispenser. Pt requested to return to bed until noted bed BM soiled. HEEL CUTTER suggested need to sit in chair while HEEL CUTTER and staff assist cleaning bed . Pt CGA SPT to chair, cued for backing up fully and reach back to sit, Min A dur to plop into chair without UE support. Pt initially stated no it's ok, it's not that bad . HEEL CUTTER called nursing for assist and stripped bed. Pt was seated in chair with nurse and NUCLE[employer] POWER PLANT ENGINEER inroom when left to take over. Gait Assessment Gait Gait Assistance Required: Contact Guard Assist,Minimum Assistance,1 Person Assist Distance (Feet) 15 Able to Maintain Weight Bearing Status Yes During Gait Assistive Devices Assistive Device Gait Belt,Front Wheeled Walker Orthotic/Prosthetic Devices or Brace: No Gait Deviations General Gait Pattern Antalgic,Decreased Stride Length,Decreased Feet Clearance,Flexed Trunk,Step-to Gait Factors Limiting Gait Function Factors Limiting Gait Function Decreased Activity Tolerance, Decreased Strength,Difficulty Following Directions,Limited Range of Motion,Pain,Poor Balance,Poor Safety Awareness Comments Gait Comments see mobility comments Stair Climbing Assessment Comments Stair Climbing Comments Not assessed. PT-Balance Assessment Sitting Balance and Reactions Static Sitting Balance Ability Good Dynamic Sitting Balance Ability Good Standing Balance and Reactions Static Standing Balance Ability Fair Dynamic Standing Balance Ability Fair Device Used FWW M5 PT-IP Objective Assessments Start: 09/25/21 14:58 Freq: NEEDED Status: Active Protocol: Document 09/26/21 10:07 AW (Rec: 09/26/21 10:45 AW [id number]) Orientation Orientation/Cognition Level of Alertness Alert Orientation Name,Place,Situation Language Function Ability No Deficits Noted Safety Awareness Decreased Safety Awareness Gross Range of Motion Lower Extremity ROM Assessment Left Impaired Strength Lower Extremity Strength Assessment Left Impaired Hip 3+/5 Knee 3-/5 Ankle 3+/5 Comments Strength Comments RLE grossly 4-/5 Sensation Assessment Sensation Gross Sensation Right LE Impaired,Left LE Impaired Light Touch Impaired Proprioception (Position) Impaired Comments Sensation Comments Dull light touch sensation bilateral feet which pt states is baseline for him. M6 PT-IP Treatment Start: 09/25/21 14:58 Freq: NEEDED Status: Active Protocol: Document 09/28/21 17:01 SP (Rec: 09/28/21 17:24 SP [id number]) Physical Therapy Treatment Education Education Provided Weight Bearing Status,Safety M7 PT-IP Assessment and Plan Start: 09/25/21 14:58 Freq: NEEDED Status: Active Protocol: Document 09/28/21 17:01 SP (Rec: 09/28/21 17:24 SP [id number]) PT Summary Assessment and Plan Potential Rehabilitation Potential Fair Status of Condition at Evaluation Evolving Summary Impairments Pain,ROM,Strength,Balance, Sensation,Bed Mobility, Transfers,Gait Progress Towards Goals Progressing Toward Goals,Slow Progress due to Pain,Slow Progress due to Activity Tolerance Assessment Summary Pt more agreeable to working with therapy. Required CG- Min A during out of bed mobilty with cues for safety education proper use of FWW, impulsive and continued education on safe hygiene during and after toileting requiring assist. Pt will require SNF for improved strength and functional mobility. Goals Bed Mobility Goal Independent Transfer Goal Standby Assistance,Front Wheeled Walker Gait Goal Standby Assistance,Front Wheel Walker Gait Distance 75 Days to Meet Goals 10 Frequency of Treatment Frequency Of Treatment Once a Day Treatment Plan Physical Therapy Treatment Plan Bed Mobility Training,Transfer Training,Gait Training, Therapeutic Exercise,Balance Retraining,Post Op Education, Discharge Planning,Hot or Cold Pack Other Recommendations and Next Treatment LE ex, transfers, gait w/ FWW Focus Precautions Other Precautions fall risk Weight Bearing Status Weight Bearing Status Weight Bear as Tolerated Allowed Weight Bearing Amount (enter % WBAT LLE or #) (%) Recommendations To Nursing Amount of Assist Needed 1 Person Assist Discharge Recommendations PT Discharge Recommendations SNF Rehab Equipment Needed for Home Before FWW Discharge Transportation Needs at Discharge Wheelchair/Cabulance
[2021-09-28 17:36] VITALS: BP 140/93; PULSE 96; RESP 20; TEMP 36.8; O2SAT 99
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
[2021-09-28 19:00] VITALS: BP 147/94; PULSE 83; RESP 16; TEMP 37.2; O2SAT 99
[2021-09-28] MEDS: MELATONIN 3 MG TABLET 6 MG PO (20:34)
[2021-09-28] MEDS: TRAZODONE 50 MG TABLET PO (20:34)
[2021-09-29 01:35] VITALS: BP 158/94; PULSE 77; RESP 14; TEMP 37.1; O2SAT 99
[2021-09-29 07:10] LABS: Add Manual Diff / Slide Review NO; Basophils Absolute Auto 100 /uL (0-100); Basophils Percent Auto 2.8 % (0-2); Eosinophils Absolute Auto 100 /uL (0-450); Hematocrit 33.4 % (41-53); Hemoglobin 11.3 g/dL (13.5-17.5); Lymphocytes Absolute Auto 700 /uL (1100-4500); Lymphocytes Percent Auto 17.7 % (25-40); Mean Corpuscular HGB Conc 33.9 % (30-36); Mean Corpuscular Hemoglobin 31.9 PG (26-34); Mean Corpuscular Volume 94.2 fL (80-100); Monocytes Absolute Auto 300 /uL (0-900); Monocytes Percent Auto 8.2 % (3-14); Neutrophils Absolute Auto 2900 /uL (1500-7000); Neutrophils Percent Auto 68.3 % (50-75); Platelet Count 210 X10^3/uL (150-400); Red Blood Cell Count 3.55 X10^6/uL (4.5-5.9); Red Cell Distribution Width 13.6 % (11.6-14.8); White Blood Cell Count 4.2 X10^3/uL (4.5-11.0)
[2021-09-29 07:24] LABS: Alanine Aminotransferase 26 IU/L (<50); Albumin Globulin Ratio 0.9 (1.0-2.8); Alkaline Phosphatase 89 U/L (38-126); Aspartate Aminotransferase 25 IU/L (17-59); BUN Creatinine Ratio 11.7 (6-22); Bilirubin Total 0.3 mg/dL (0.2-1.3); Blood Urea Nitrogen 9 mg/dL (9-20); Calcium 8.6 mg/dL (8.4-10.2); Carbon Dioxide 28 mmol/L (22-32); Chloride 99 mmol/L (98-107); Estimated Glomerular Filt Rate > 60.0 mL/min (>60); Globulin 3.3 g/dL (1.7-4.1); Glucose 112 mg/dL (80-110); HEMOLYSIS < 15 (0-50); Potassium 3.8 mmol/L (3.4-5.1); Sodium 133 mmol/L (137-145); Total Protein 6.3 g/dL (6.3-8.2)
[2021-09-29 09:00] VITALS: BP 129/82; PULSE 17; RESP 19; TEMP 37.1; O2SAT 98
[2021-09-29] MEDS: DOXYCYCLINE HYCLATE 100 MG TABLET PO (09:34)
[2021-09-29] MEDS: ENOXAPARIN 40 MG/0.4 ML SYRINGE SUBCUT (09:34)
[2021-09-29] MEDS: DOCUSATE 100 MG CAPSULE PO (09:34)
[2021-09-29] MEDS: LACTOBACILLUS ACIDOPHILUS TABLET 1 EACH PO (09:34)
[2021-09-29] MEDS: FAMOTIDINE 20 MG TABLET PO (09:34)
[2021-09-29] MEDS: ACETAMINOPHEN 325 MG TABLET 650 MG PO (09:34)
[2021-09-29] MEDS: NICOTINE 21 MG PATCH TOP (09:35)
--- NOTE | 2021-09-29 09:59 | PC.NURSE ---
Addendum entered by Ping Hicks R.N. 09/29/21 15:53: Patient wheeled out in chair to [facility], they will take him to [place] paperwork sent with patient, and antibiotic script explained to patient. Addendum entered by Ping Hicks R.N. 09/29/21 14:01: Late Entry- Patient has wheezes and crackles to upper and lower lobes. He is resting in bed and continuously asks for food and drink over and over. As stated below we have set some boundaries with patient. He is doing better with this. Original Note: 0730-Patient is needy but pleasant. He is homeless and asks for food and coffee several times an hour. Some boundaries have been set with patient regarding this. He refuses shower, to brush his teeth, to get up out of bed, and most care. Patients Michaela is dressed with an aquacel and and taped at distal end of dressing. He has sutures underneath of dressing. Patient given tylenol for discomfort. He is resting and watching television now.
--- NOTE | 2021-09-29 11:39 | PT.IPTN ---
Addendum entered and electronically signed by Carleen Stapleton PTA 09/29/21 13:05: STORAGE WORKER did not dispense FWW, will need, no definite DC plan. Original Note: Current Diagnoses Other specified bacterial agents as the cause of diseases classified elsewhere (09/24/21) Cellulitis of left lower limb (09/24/21) Other bursitis of knee, left knee (09/24/21) Other infective bursitis, unspecified site (09/24/21) Homelessness unspecified (09/24/21) Surgery Performed Operation Date: 09/25/21 12:00 Actual Procedures p I&D knee pre patella bursistis(Left) - Macarena Tyson MD Physical Therapy Treatment Note M2 PT-IP Current Condition Start: 09/25/21 14:58 Freq: NEEDED Status: Active Protocol: Document 09/29/21 11:23 SP (Rec: 09/29/21 13:03 SP [id number]) Physical Therapy Current Condition Current Condition Evaluation Date 09/26/21 Treatment Diagnosis LLE cellulitis, septic prepatellar bursitis s/p I&D; difficulty in walking Onset Date 09/18/21 M3 PT-IP Subjective Start: 09/25/21 14:58 Freq: NEEDED Status: Active Protocol: Document 09/29/21 11:23 SP (Rec: 09/29/21 13:03 SP [id number]) Subjective Physical Therapy Visit Type Type Treatment Note Visit Start Time 11:23 Visit Stop Time 11:39 Total Visit Minutes 16 Number of STORAGE WORKER Visits 4 Physical Therapy Visit Comments Patient Comments Pt agreeable to working with therapy getting up to the bathroom. I am still having L leg pain, not sure how I can get around very well. I don't have a walker either. Therapy Pain Assessment Pain When Pain Assessed At Rest Pain Present Pain Present Pain Reported Location Left Leg Scale Used no scale quantified Pain Behaviors Facial Grimacing Pain Management Techniques Distraction,Re-positioning, Timing of Activity with Medications M4 PT-IP Mobility and Gait Start: 09/25/21 14:58 Freq: NEEDED Status: Active Protocol: Document 09/29/21 11:23 SP (Rec: 09/29/21 13:03 SP [id number]) PT-Bed Mobility Assessment Supine to Sit Supine to Sit Independent,Bedrails Sit to Supine Sit to Supine Independent,Bedrails Scooting Scooting to Edge of Bed Independent Scooting Up and Down in Bed Independent PT-Transfer Assessment Sit to and From Stand Sit to and from Stand Standby Assistance,Use of Upper Extremities Equipment Transfer Assistive Device Gait Belt,Front Wheeled Walker Orthotic/Prosthetic Devices or Brace: No Transfers Transfer Destination Bed,Toilet Transfer Technique pt ambulated using FWW Transfer Ability Level of Assist Standby Assistance,Contact Guard Assistance,Use of Upper Extremities Comments Mobility Comments Pt completed supine<>sit with use bed rails, scoot to EOB I and when returned to bed end tx sit>supine and scoot up in bed upright sitting I with HOB flat. Sit>stand sBA, safety cues push from bed not on fWW, ambulated R side bed to bathroom SBA- CGA with noted wt shift deviations but recovery using FWW and CGA as needed, 15 ft. SBA pivot in bathroom w/ FWW fully and slow hip hinge sit toilet no UE support SBA, no LOB. Pt voided and small BM sit>stand from toilet w/ grab bar self pericare in standing 1 UE support on grab bar, provided cleanse wipe for safety in standing noted trunk sway no LOB refused to sit pericare performance safety recommendations, SBA. Pt walked to sink 8 ft after STORAGE WORKER recommendations for proper hand hygiene mgt, pt able to wash hands at sink unsupported , trunk sway no LOB cGA for safety suggested to contact counter no carryover. STORAGE WORKER recocmmended further distance gait, pt declined I need to go back to bed, I am not balanced in chair. Pt Ambulated back to L side bed, STORAGE WORKER suggested wait to get into bed so can drop rail. Pt said I can climb in. Pt positioned FWW fully step back to sit SBA, was able to scoot back in bed with upright positioning using RLE and BUE and ableto don blankets self. Pt had call light and all needs in reach, bed alarmed for safety, all needs in reach . Pt requested cup cranberry juice, deferred to nursing, was told will be getting some soon at lunch. Gait Assessment Gait Gait Assistance Required: Standby Assistance,Contact Guard Assist Distance (Feet) 15 Able to Maintain Weight Bearing Status Yes During Gait Assistive Devices Assistive Device Gait Belt,Front Wheeled Walker Orthotic/Prosthetic Devices or Brace: No Gait Deviations General Gait Pattern Antalgic,Decreased Stride Length,Decreased Feet Clearance,Flexed Trunk,Narrow Based Gait Factors Limiting Gait Function Factors Limiting Gait Function Decreased Activity Tolerance, Decreased Strength,Difficulty Following Directions,Pain,Poor Balance,Poor Safety Awareness Comments Gait Comments see mobility comments Stair Climbing Assessment Comments Stair Climbing Comments Not assessed. PT-Balance Assessment Sitting Balance and Reactions Static Sitting Balance Ability Normal Dynamic Sitting Balance Ability Good Standing Balance and Reactions Static Standing Balance Ability Fair Dynamic Standing Balance Ability Fair Device Used FWW M5 PT-IP Objective Assessments Start: 09/25/21 14:58 Freq: NEEDED Status: Active Protocol: Document 09/26/21 10:07 AW (Rec: 09/26/21 10:45 AW [id number]) Orientation Orientation/Cognition Level of Alertness Alert Orientation Name,Place,Situation Language Function Ability No Deficits Noted Safety Awareness Decreased Safety Awareness Gross Range of Motion Lower Extremity ROM Assessment Left Impaired Strength Lower Extremity Strength Assessment Left Impaired Hip 3+/5 Knee 3-/5 Ankle 3+/5 Comments Strength Comments RLE grossly 4-/5 Sensation Assessment Sensation Gross Sensation Right LE Impaired,Left LE Impaired Light Touch Impaired Proprioception (Position) Impaired Comments Sensation Comments Dull light touch sensation bilateral feet which pt states is baseline for him. M6 PT-IP Treatment Start: 09/25/21 14:58 Freq: NEEDED Status: Active Protocol: Document 09/29/21 11:23 SP (Rec: 09/29/21 13:03 SP [id number]) Physical Therapy Treatment Education Education Provided Weight Bearing Status,Safety M7 PT-IP Assessment and Plan Start: 09/25/21 14:58 Freq: NEEDED Status: Active Protocol: Document 09/29/21 11:23 SP (Rec: 09/29/21 13:03 SP [id number]) PT Summary Assessment and Plan Potential Rehabilitation Potential Fair Status of Condition at Evaluation Evolving Summary Impairments Pain,ROM,Strength,Balance, Sensation,Bed Mobility, Transfers,Gait Progress Towards Goals Progressing Toward Goals,Slow Progress due to Pain,Slow Progress due to Activity Tolerance Assessment Summary Pt more agreeable to working with therapy. Required SBA-CGA during out of bed mobilty noted trunks sway CG recovery and use of FWW with cues for safety education proper use of FWW, impulsive, limits his mobility and continued education on safe hygiene during and after toileting able to complete self. Pt is ok to go if has support persons to assist him, will need FWW dispensed vs SNF rehab to get stronger back to PLOF. Recommending 24/7 assist available for safety mobility due to demonstrated unsteady balance standing using fWW vs SNF. Goals Bed Mobility Goal Independent Transfer Goal Standby Assistance,Front Wheeled Walker Gait Goal Standby Assistance,Front Wheel Walker Gait Distance 75 Days to Meet Goals 10 Frequency of Treatment Frequency Of Treatment Once a Day Treatment Plan Physical Therapy Treatment Plan Bed Mobility Training,Transfer Training,Gait Training, Therapeutic Exercise,Balance Retraining,Post Op Education, Discharge Planning,Hot or Cold Pack Other Recommendations and Next Treatment LE ex, transfers, gait w/ FWW Focus Precautions Other Precautions fall risk Weight Bearing Status Weight Bearing Status Weight Bear as Tolerated Allowed Weight Bearing Amount (enter % WBAT LLE or #) (%) Recommendations To Nursing Amount of Assist Needed Standby Assistance,1 Person Assist Discharge Recommendations PT Discharge Recommendations Home with 24/7 Assist Available,Home Health,SNF Rehab,Home vs SNF Equipment Needed for Home Before FWW Discharge Transportation Needs at Discharge Wheelchair/Cabulance
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
--- NOTE | 2021-09-29 12:55 | CM.DPNOTE ---
Faxed snf referral to [facility] & Eli WARD and emailed [facility] & Anyi Baig. Received fax confirm. Kita Diaz CM Asst.
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
--- NOTE | 2021-09-29 14:40 | OT.IP.TRT ---
Current Diagnoses Other specified bacterial agents as the cause of diseases classified elsewhere (09/24/21) Cellulitis of left lower limb (09/24/21) Other bursitis of knee, left knee (09/24/21) Other infective bursitis, unspecified site (09/24/21) Homelessness unspecified (09/24/21) Surgery Performed Operation Date: 09/25/21 12:00 Actual Procedures p I&D knee pre patella bursistis(Left) - Macarena Tyson MD Occupational Therapy Treatment Note M2 OT-IP Current Condition Start: 09/27/21 16:29 Freq: Status: Active Protocol: Document 09/27/21 14:20 [facility] (Rec: 09/27/21 16:52 [facility] [id number]) Occupational Therapy Current Condition Current Condition Evaluation Date 09/27/21 Treatment Diagnosis LLE cellultis, s/p knee I & D Diagnosis Onset Date 09/24/21 M3 OT- IP Subjective and Pain Start: 09/27/21 16:29 Freq: Status: Active Protocol: Document 09/29/21 14:23 [facility] (Rec: 09/29/21 15:51 [facility] [id number]) OT- Subjective Occupational Therapy Visit Type Type Treatment Note Visit Start Time 14:23 Visit Stop Time 14:40 Total Visit Minutes 17 Occupational Therapy Visit Comments Patient Comments Pt agreed to get up to use the bathroom. Patient/Caregiver Goals Pt states does not know what he wants. OT Pain Assessment Pain When Pain Assessed At Rest Pain Present Pain Present Denied Pain M4 OT- IP ADL's Start: 09/27/21 16:29 Freq: Status: Active Protocol: Document 09/29/21 14:23 [facility] (Rec: 09/29/21 15:51 [facility] [id number]) OT ADL-Grooming Comments OT Grooming Comments Pt refused. OT ADL-Oral Care Comments Oral Care Comments Pt refused. OT ADL-Dressing General Eval Lower Body Dressing Ability Standby Assistance OT ADL-Toileting General Evaluation Toileting Ability Standby Assistance Comments OT Toileting Comments Pt needing cues to hygiene but did not adhere to OT advice to wash his hands as getting bowels on his hands. Pt able to give pt soapy wash cloth to clean his hands. OT ADL-Bathing Comments OT Bathing Comments Pt refusing to shower. M5 OT- IP IADL's Start: 09/27/21 16:29 Freq: Status: Active Protocol: Document 09/27/21 14:20 [facility] (Rec: 09/27/21 16:52 [facility] [id number]) OT-Instrumental Activities of Daily Living Home Safety Awareness Home Safety Comments Pt is homeless and poor insight to his need and states, I just hope I can be helped. M6 OT- IP Functional Cognition Start: 09/27/21 16:29 Freq: Status: Active Protocol: Document 09/29/21 14:23 [facility] (Rec: 09/29/21 15:51 [facility] [id number]) Cognitive Factors Limiting Selfcare Function Cognitive Comments Cognitive Assessment Comments Pt tends to dictate his needs. Pt keeps asking for coffee and wanting therapist to adjust his tv remote instead of figuring it out on his own. Pt dropped the wash cloth on the floor and wanting therapist to pick it up. Told pt to pick it up on his own and able to do so. Pt states he is unable to care for himself and states that , the hospital just can not kick me out to the street. Encourage pt to be proactive of his needs and care. Pt has poor safety awareness and insight for his needs. Pt seems like he maybe at his baseline for cognitive needs. M7 OT- IP Mobility and Balance Start: 09/27/21 16:29 Freq: Status: Active Protocol: Document 09/29/21 14:23 [facility] (Rec: 09/29/21 15:51 [facility] [id number]) OT- Bed Mobility Assessment Rolling Level of Assistance Independent OT-Transfer Assessment Sit to and From Stand Sit to and from Stand Independent Transfers Transfer Ability Independent Technique Transfer Destination Bed,Toilet Transfer Technique Stand Step Pivot Devices Transfer Assistive Devices Straight Cane,Front Wheeled Walker Comments Mobility Comments Distant supervision for all mobility needs with use of FWW . OT- Balance Assessment Sitting Balance and Reactions Static Sitting Balance Ability Normal Dynamic Sitting Balance Ability Normal Standing Balance and Reactions Static Standing Balance Ability Good Dynamic Standing Balance Ability Fair M8 OT- IP Objective Assessments Start: 09/27/21 16:29 Freq: Status: Active Protocol: Document 09/27/21 14:20 [facility] (Rec: 09/27/21 16:52 [facility] [id number]) OT Gross Range of Motion Upper Extremity Range of Motion Assessment Bilaterally Impaired OT Strength Upper Extremity Strength Assessment Bilaterally Impaired OT-Muscle Tone Assessment Muscle Tone WNL Yes OT Sensation Assessment Comments Summary Comments Appears intact for light touch . M9 OT- IP Assessment and Plan Start: 09/27/21 16:29 Freq: Status: Active Protocol: Document 09/29/21 14:23 [facility] (Rec: 09/29/21 15:51 [facility] [id number]) OT Summary Assessment and Plan Potential Rehabilitation Potential Poor Analytic Complexity at Evaluation Moderate Summary OT Impairments Pain,Strength,Balance, Functional Cognition, Functional Mobility,Grooming, Dressing,Toileting,Bathing, Toilet Transfers,Shower Transfers,Activity Tolerance Progress Towards Goals Slow Progress due to Cognition Assessment Summary Pt is tends to dictate his needs and constantly asking for coffee and wanting to be assisted for all his needs, even though pt is able to care for himself. Pt has poor insight and hygiene needs and appears to be his baseline as pt not caring that he had feces on his hands from wiping and having to insist pt to wash his hands. Pt appears maybe at his baseline for needs which most likely not safe and questionable whether he was truly independent prior for his needs. Pt has refused to particpate in OT especially for showering and hygiene needs. Pt would benefit from an adult family home, but pt is homeless. Able to issue pt a FWW. Per case management, pt being discharged to a senior living check point in [place]. Frequency of Treatment Frequency Of Treatment Once a Day Treatment Plan OT Treatment Plan ADL Training,Functional Cognition Training,Functional Mobility,Patient/Family Education,Discharge Planning Other Treatment Recommendations and Next Shower if still here, if pt Treatment Focus refuses again , discharge form OT services. Discharge Recommendations OT Discharge Recommendations [facility] Transportation Needs at Discharge Private Vehicle
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
--- NOTE | 2021-09-29 16:56 | PC.NURSE ---
Accessed patient chart as patient discharged with [employer] [facility]. [facility] called with patient who gave incorrect address to home. Provided patient the address listed in chart.
== END 2021-09-29 15:52 | disposition home or self-care (01) | DRG 501 ==
LOC: ED 23:05 → AC 23:06
PROVIDERS: Hospitalist; Orthopaedic Surgery Foot and Ankle Surgery; Admitting Provider Nurse Practitioner Family; Emergency Provider Emergency Medicine; Referring Provider Emergency Medicine; Visit Provider Nurse Practitioner Family
PROC: 0MBP0ZZ Excision of Left Knee Bursa and Ligament, Open Approach (ICD-10-PCS; principal; 2021-09-25 12:00)
DX: M71.162 Other infective bursitis, left knee (principal); L03.116 Cellulitis of left lower limb; F33.9 Major depressive disorder, recurrent, unspecified; M25.462 Effusion, left knee; Z59.00 Homelessness unspecified; D64.9 Anemia, unspecified; B95.61 Methicillin susceptible Staphylococcus aureus infection as the cause of diseases classified elsewhere; F17.200 Nicotine dependence, unspecified, uncomplicated; Z20.822 Contact with and (suspected) exposure to COVID-19; Z91.19 Patient's noncompliance with other medical treatment and regimen; Z23 Encounter for immunization
CPT/HCPCS: 20610; 36415; 51798; 73562; 80048; 80053; 80202; 83605; 83735; 85025; 85651; 86140; 87040; 87070; 87075; 87077; 87147; 87150; 87186; 87205; 87635; 89051; 89060; 90471; 90662; 92610; 93971; 94762; 96361; 96365; 96366; 96367; 96375; 97110; 97116; 97162; 97166; 97530; 97535; 99284; C9803; A9270; J0696; J1100; J1170; J1650; J1885; J2250; J2405; J2704; J3010